=== PATIENT | male | born 1935 | race Two or more races ===

== ENCOUNTER 2019-01-16 21:38 | Inpatient (IN) | payer OTHER ==
[~2019-01-16] VITALS: Ht 160 cm; Wt 80.4 kg
[2019-01-16 22:32] VITALS: BP 149/82
[2019-01-16] MEDS ORDERED: TRAZ-120 PO (22:56)
[2019-01-16] MEDS: traZODone 150 MG TABLET. PO SCH (23:11)
[2019-01-16] MEDS ORDERED: METHYL SALICYLATE/MENTHOL TOPICAL OINTMENT 29GM TUBE. TP PRN (23:30)
[2019-01-16] MEDS ORDERED: MAG HYDROX/AL HYDROX/SIMETH 30 ML ORAL.SUSP PO PRN (23:30)
[2019-01-16] MEDS ORDERED: NYST15CR2 TP (23:52)
[2019-01-16] MEDS ORDERED: MULT1TAB52 PO (23:52)
[2019-01-16] MEDS ORDERED: BUDE10.22 IH (23:52)
[2019-01-16] MEDS ORDERED: SERT50TA PO (23:52)
[2019-01-16] MEDS ORDERED: TIOT18CA IH (23:52)
[2019-01-16] MEDS ORDERED: RIVA1PAT5 TD (23:52)
[2019-01-16] MEDS ORDERED: CALC-614 PO (23:52)
[2019-01-16] MEDS ORDERED: RANI300C PO (23:52)
[2019-01-16] MEDS ORDERED: FERR324T8 PO (23:52)
[2019-01-16] MEDS ORDERED: LUTE1CAP5 PO (23:52)
[2019-01-16] MEDS ORDERED: GUAI200T3 PO (23:52)
[2019-01-16] MEDS ORDERED: TAMS0.4C97 PO (23:52)
[2019-01-16] MEDS ORDERED: GLUC100018 PO (23:52)
[2019-01-16] MEDS ORDERED: ALBU2.5V8 INH (23:52)
[2019-01-16] MEDS ORDERED: METH113. TP (23:52)
[2019-01-16] MEDS ORDERED: LEVO137T3 PO (23:52)
[2019-01-17] MEDS ORDERED: ALBUTEROL SULFATE 2.5 MG/3 ML NEBU. INH PRN
[2019-01-17] MEDS ORDERED: [UNRECOGNIZED DRUG - OTHER] TP PRN
[2019-01-17] MEDS: LEVOTHYROXINE 137 MCG TABLET PO SCH (05:10)
[2019-01-17 05:45] VITALS: BP 147/82
[2019-01-17] MEDS: IPRATRPIUM/ALBUTEROL 0.5/2.5MG 3 ML NEBU. NEB SCH ×4 (06:30→20:50)
[2019-01-17 07:41] LABS: BASO % 1 % (0-3); EOS # 0.1 x10^3/uL (0.0-0.7); EOS % 2 % (0-3); HEMATOCRIT 39.9 % (39.0-53.0); HEMOGLOBIN 13.7 g/dL (13.0-17.5); LYMPH # 0.9 x10^3/uL (1.0-4.8); LYMPH % 17 % (24-48); MEAN CORPUSCULAR HEMOGLOBIN 32 pg (25-35); MEAN CORPUSCULAR HGB CONC 34 g/dL (31-37); MEAN CORPUSCULAR VOLUME 93 fL (79-100); MONO # 0.6 x10^3/uL (0.0-1.1); MONO % 11 % (0-9); NEUT # 3.6 x10^3uL (1.8-7.7); NEUT % 70 % (31-73); PLATELET COUNT 208 x10^3/uL (140-400); RED BLOOD COUNT 4.32 x10^6/uL (4.30-5.70); WHITE BLOOD COUNT 5.2 x10^3/uL (4.0-11.0)
[2019-01-17 07:51] LABS: ALBUMIN 3.8 g/dL (3.4-5.0); ALBUMIN/GLOBULIN RATIO 1.1 (1.0-1.7); CALCIUM 9.1 mg/dL (8.5-10.1); CREATININE 1.4 mg/dL (0.7-1.3); GFR 48.5; MAGNESIUM 2.1 mg/dL (1.8-2.4); POTASSIUM 3.7 mmol/L (3.5-5.1); TOTAL BILIRUBIN 0.6 mg/dL (0.2-1.0); TOTAL PROTEIN 7.4 g/dL (6.4-8.2)
[2019-01-17] MEDS: MULTIVITAMIN with MINERAL TABLET. PO SCH (08:54)
[2019-01-17] MEDS: FERROUS SULFATE 325 MG TABLET. PO SCH (08:54)
[2019-01-17] MEDS: MULTIVITAMIN I-VITE TABLET. PO SCH ×3 (08:55→17:47)
[2019-01-17] MEDS: GLUCOSAMINE 500 MG CAPSULE PO SCH (08:56)
[2019-01-17] MEDS: TAMSULOSIN 0.4 MG CAP.ER.24H. PO SCH (08:56)
[2019-01-17] MEDS: SERTRALINE 50 MG TABLET. PO SCH (08:56)
[2019-01-17] MEDS: FAMOTIDINE 20 MG TABLET PO SCH ×2 (08:56→19:52)
[2019-01-17] MEDS: CALCIUM CARBONATE 500 MG TABLET PO SCH (08:56)
[2019-01-17] MEDS: NYSTATIN/TRIAMCIN TOPICAL CREAM 15GM TUBE. TP SCH ×2 (08:58→19:55)
[2019-01-17] MEDS: RIVASTIGMINE 13.3MG PATCH. TD SCH (08:58)
[2019-01-17] MEDS ORDERED: NON FORMULARY ITEM (Budesonide/Formoterol Fumarate (Symbicort 80-4.5 Mcg Inhaler) 2 PUFF) IH SCH (09:00)
[2019-01-17] MEDS ORDERED: NON FORMULARY ITEM (Tiotropium Bromide (Spiriva) 2 PUFF) IH SCH (09:00)
[2019-01-17] MEDS: BUDESONIDE 0.5 MG/2 ML NEBU NEB SCH ×2 (11:50→20:50)
--- NOTE | 2019-01-17 13:07 | EKG ---
[address] [address] Test Date: 2019-01-17 Test Time: 10:51:04 Pat Name: JAZZY SOLIS Department: Room: [facility] 1 Gender: M Yard Attendant: : [id number] Requested By: ARELY ROSALES Order Number: [id number] Reading MD: Hiro Ashley Measurements Intervals [place] Rate: 95 P: 45 VA: 146 QRS: -81 QRSD: 88 T: 27 QT: 354 QTc: 448 Interpretive Statements SINUS RHYTHM ABNORMAL LEFT AXIS DEVIATION LEFT ANTERIOR FASCICULAR BLOCK ABNORMAL ECG RI6.02 No previous ECG available for comparison Electronically Signed On 02-10-2019 11:46:51 CDT by Hiro Ashley
[2019-01-17 13:43] LABS: THYROID STIM HORMONE (TSH) 13.743 uIU/mL (0.358-3.740)
[2019-01-17 16:40] VITALS: BP 134/77
[2019-01-17 18:06] LABS: THYROXINE 7.3 ug/dL (4.5-12.0)
[2019-01-17] MEDS: traZODone 150 MG TABLET. PO SCH (19:56)
[2019-01-17] MEDS ORDERED: traZODone 150 MG TABLET. PO SCH (21:00)
[2019-01-17] MEDS ORDERED: TRAZODONE HCL 150 MG PO SCH (21:00)
[2019-01-17] MEDS ORDERED: DIVALPROEX 125 MG CAP.SPRINK PO ONE (21:00)
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
[2019-01-18] MEDS: LEVOTHYROXINE 137 MCG TABLET PO SCH (05:27)
[2019-01-18] MEDS: IPRATRPIUM/ALBUTEROL 0.5/2.5MG 3 ML NEBU. NEB SCH ×4 (05:29→21:03)
[2019-01-18] MEDS: BUDESONIDE 0.5 MG/2 ML NEBU NEB SCH ×2 (05:29→21:03)
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
[2019-01-18 06:22] VITALS: BP 170/96
[2019-01-18] MEDS: GLUCOSAMINE 500 MG CAPSULE PO SCH (08:41)
[2019-01-18] MEDS: FERROUS SULFATE 325 MG TABLET. PO SCH (08:41)
[2019-01-18] MEDS: TAMSULOSIN 0.4 MG CAP.ER.24H. PO SCH (08:41)
[2019-01-18] MEDS: CALCIUM CARBONATE 500 MG TABLET PO SCH (08:41)
[2019-01-18] MEDS: RIVASTIGMINE 13.3MG PATCH. TD SCH (08:43)
[2019-01-18] MEDS: FAMOTIDINE 20 MG TABLET PO SCH ×2 (08:43→20:06)
[2019-01-18] MEDS: MULTIVITAMIN with MINERAL TABLET. PO SCH (08:43)
[2019-01-18] MEDS: SERTRALINE 50 MG TABLET. PO SCH (08:43)
[2019-01-18] MEDS: NYSTATIN/TRIAMCIN TOPICAL CREAM 15GM TUBE. TP SCH ×2 (08:44→20:05)
[2019-01-18] MEDS ORDERED: DIVALPROEX 125 MG CAP.SPRINK PO SCH ×2 (09:00→21:00)
[2019-01-18 10:07] LABS: HEMOGLOBIN A1C 5.8 % (4.8-5.6)
[2019-01-18 16:39] VITALS: BP 110/74
[2019-01-18] MEDS: MULTIVITAMIN I-VITE TABLET. PO SCH (17:21)
[2019-01-18] MEDS: traZODone 150 MG TABLET. PO SCH (20:05)
--- NOTE | 2019-01-19 04:16 | PN ---
DATE: 01/18/2019 SUBJECTIVE: The patient was seen today, met with the staff, chart reviewed. The patient apparently responded to the medication and much calmer, is still an elopement risk. The patient did get agitated easily. OBSERVATION: Vital signs: Temperature 97.2, blood pressure 170/96, pulse 108, respirations 20, O2 sat 93%. Her slept about 6 hours last night. The patient's appetite is good. The patient is not having any physical problems. MEDICATIONS: The patient's current medications include Depakote 125 mg in the morning and 250 at night, olanzapine 10 mg at night, Zoloft 50 mg daily, Exelon patch daily, trazodone 150 mg at night, and olanzapine 2.5 mg q.4 hours p.r.n. The patient's medications are changed today. The Depakote was increased and also the patient was started on the olanzapine 5 mg at night scheduled dose. ASSESSMENT: 1. Dementia, most likely Alzheimer's with confusion and behavior problems. 2. Generalized anxiety disorder. 3. Impulse control disorder, unspecified. PLAN: To continue with the treatment. LENGTH OF STAY: 5-7 days. ARELY ROSALES MD DR: GISELLE/ruiz JOB#: [id number] / [id number]
[2019-01-19] MEDS: IPRATRPIUM/ALBUTEROL 0.5/2.5MG 3 ML NEBU. NEB SCH ×4 (05:42→20:55)
[2019-01-19] MEDS: BUDESONIDE 0.5 MG/2 ML NEBU NEB SCH ×2 (05:42→20:55)
[2019-01-19] MEDS: LEVOTHYROXINE 137 MCG TABLET PO SCH (06:01)
[2019-01-19 06:07] VITALS: BP 119/85
[2019-01-19] MEDS: CALCIUM CARBONATE 500 MG TABLET PO SCH (07:56)
[2019-01-19] MEDS: GLUCOSAMINE 500 MG CAPSULE PO SCH (07:56)
[2019-01-19] MEDS: MULTIVITAMIN with MINERAL TABLET. PO SCH (07:56)
[2019-01-19] MEDS: SERTRALINE 50 MG TABLET. PO SCH (07:57)
[2019-01-19] MEDS: RIVASTIGMINE 13.3MG PATCH. TD SCH (07:57)
[2019-01-19] MEDS: FAMOTIDINE 20 MG TABLET PO SCH ×2 (07:57→19:48)
[2019-01-19] MEDS: MULTIVITAMIN I-VITE TABLET. PO SCH ×2 (07:57→17:46)
[2019-01-19] MEDS: TAMSULOSIN 0.4 MG CAP.ER.24H. PO SCH (07:57)
[2019-01-19] MEDS: FERROUS SULFATE 325 MG TABLET. PO SCH (07:57)
[2019-01-19] MEDS: NYSTATIN/TRIAMCIN TOPICAL CREAM 15GM TUBE. TP SCH ×2 (08:01→20:01)
[2019-01-19] MEDS ORDERED: DIVALPROEX 125 MG CAP.SPRINK PO SCH (09:00)
[2019-01-19 16:03] VITALS: BP 159/80
[2019-01-19] MEDS: traZODone 150 MG TABLET. PO SCH (19:47)
[2019-01-19] MEDS: DIVALPROEX 125 MG CAP.SPRINK PO SCH (19:48)
--- NOTE | 2019-01-20 03:44 | PN ---
DATE: 01/19/2019 SUBJECTIVE: The patient was seen today, met with the staff, chart reviewed. The patient's behavior continues to fluctuate. The patient is also threatening towards the staff. He is an elopement risk. The patient is not able to follow directions. The patient is also irritable and sutton. The patient has no awareness of his surroundings and significant confusion and also significant change in his level of psychomotor activity. The patient is uncontrollable at times. OBSERVATION: VITAL SIGNS: Temperature 97.2, blood pressure 119/85, pulse 94, respirations 20, O2 sat 93%, slept about 6 hours last night. CURRENT MEDICATIONS: The patient's current medications include Depakote 125 mg in the morning and 250 at night, olanzapine 10 mg at night, Zoloft 50 mg daily, Exelon patch daily, trazodone 150 mg at night and also olanzapine 2.5 mg q. 4 hours p.r.n. The patient's Depakote was increased today to 250 mg b.i.d. p.o. The patient is not having any major side effects, no major medical issues. The patient is able to walk fairly steady. ASSESSMENT: 1. Dementia, most likely Alzheimer's with confusion, behavioral problems. 2. Generalized anxiety disorder. 3. Impulse control disorder, unspecified. PLAN: To continue with the treatment. LENGTH OF STAY: 5-7 days. ARELY ROSALES MD DR: GISELLE/ruiz JOB#: [id number] / [id number]
[2019-01-20] MEDS: MAGNESIUM HYDROXIDE 2,400 MG/30 ML ORAL.SUSP. PO PRN (04:56)
[2019-01-20] MEDS: LEVOTHYROXINE 137 MCG TABLET PO SCH (05:34)
[2019-01-20 06:18] VITALS: BP 140/84
[2019-01-20 07:17] LABS: ALBUMIN 3.6 g/dL (3.4-5.0); CALCIUM 8.9 mg/dL (8.5-10.1); CREATININE 1.6 mg/dL (0.7-1.3); GFR 41.6; POTASSIUM 4.2 mmol/L (3.5-5.1); TOTAL PROTEIN 7.2 g/dL (6.4-8.2)
[2019-01-20 07:31] LABS: BASO % 1 % (0-3); EOS # 0.1 x10^3/uL (0.0-0.7); EOS % 3 % (0-3); HEMATOCRIT 40.1 % (39.0-53.0); HEMOGLOBIN 13.5 g/dL (13.0-17.5); LYMPH # 0.9 x10^3/uL (1.0-4.8); LYMPH % 16 % (24-48); MEAN CORPUSCULAR HEMOGLOBIN 32 pg (25-35); MEAN CORPUSCULAR HGB CONC 34 g/dL (31-37); MEAN CORPUSCULAR VOLUME 94 fL (79-100); MONO # 0.6 x10^3/uL (0.0-1.1); MONO % 12 % (0-9); NEUT # 3.8 x10^3uL (1.8-7.7); NEUT % 69 % (31-73); PLATELET COUNT 207 x10^3/uL (140-400); RED BLOOD COUNT 4.28 x10^6/uL (4.30-5.70); RED CELL DISTRIBUTION WIDTH 14.3 % (11.5-14.5); WHITE BLOOD COUNT 5.5 x10^3/uL (4.0-11.0)
[2019-01-20] MEDS: DIVALPROEX 125 MG CAP.SPRINK PO SCH ×2 (08:10→19:56)
[2019-01-20] MEDS: TAMSULOSIN 0.4 MG CAP.ER.24H. PO SCH (08:10)
[2019-01-20] MEDS: MULTIVITAMIN with MINERAL TABLET. PO SCH (08:10)
[2019-01-20] MEDS: MULTIVITAMIN I-VITE TABLET. PO SCH ×2 (08:10→16:59)
[2019-01-20] MEDS: FERROUS SULFATE 325 MG TABLET. PO SCH (08:10)
[2019-01-20] MEDS: CALCIUM CARBONATE 500 MG TABLET PO SCH (08:10)
[2019-01-20] MEDS: GLUCOSAMINE 500 MG CAPSULE PO SCH (08:10)
[2019-01-20] MEDS: SERTRALINE 50 MG TABLET. PO SCH (08:11)
[2019-01-20] MEDS: NYSTATIN/TRIAMCIN TOPICAL CREAM 15GM TUBE. TP SCH ×2 (08:11→19:59)
[2019-01-20] MEDS: RIVASTIGMINE 13.3MG PATCH. TD SCH (08:11)
[2019-01-20] MEDS: FAMOTIDINE 20 MG TABLET PO SCH ×2 (08:11→19:56)
[2019-01-20] MEDS: IPRATRPIUM/ALBUTEROL 0.5/2.5MG 3 ML NEBU. NEB SCH ×4 (10:23→20:25)
[2019-01-20] MEDS: BUDESONIDE 0.5 MG/2 ML NEBU NEB SCH ×2 (10:23→20:25)
[2019-01-20 15:53] VITALS: BP 109/71
[2019-01-20 18:12] LABS: BACTERIA,URINE 0 /HPF (0-FEW); BILIRUBIN,URINE NEG (NEG); CLARITY,URINE HAZY; COLOR,URINE AMBER; GLUCOSE,URINE NEG (NEG); NITRITE,URINE NEG (NEG); RBC,URINE 0 /HPF (0-2); SQUAMOUS EPITHELIAL CELL,UR OCC /LPF; UROBILINOGEN,URINE 0.2 mg/dL (0.2 mg/dL)
[2019-01-20] MEDS: traZODone 150 MG TABLET. PO SCH (19:55)
--- NOTE | 2019-01-21 00:39 | PN ---
DATE: 01/20/2019 SUBJECTIVE: The patient was seen today, met with the staff, chart reviewed. The patient's behavior overall is improved, but still is pacing, intrusive, elopement risk and also periods of agitation, still paranoid, confused, and also showing increased mood swings and irritability. OBSERVATION: VITAL SIGNS: Temperature 97.2, blood pressure 119/85, pulse 94, respirations 20, O2 sat 93%. GENERAL: Slept about 6 hours last night. CURRENT MEDICATIONS: The patient's current medications include Depakote 125 mg in the morning and 250 mg at night, olanzapine 10 mg at night, Zoloft 50 mg daily, Exelon patch daily, trazodone 150 mg at night, and also olanzapine 2.5 mg q. 4 hours p.r.n. The patient's Depakote was increased to 250 mg b.i.d. p.o. yesterday because of his increased agitation, so far no major side effects. ASSESSMENT: 1. Dementia, most likely Alzheimer's with confusion and behavior problems. 2. Generalized anxiety disorder. 3. Impulse control disorder, unspecified. PLAN: To continue with the treatment. LENGTH OF STAY: 5 days. ARELY ROSALES MD DR: GISELLE/ruiz JOB#: [id number] / [id number]
[2019-01-21] MEDS: IPRATRPIUM/ALBUTEROL 0.5/2.5MG 3 ML NEBU. NEB SCH ×4 (05:22→20:33)
[2019-01-21] MEDS: BUDESONIDE 0.5 MG/2 ML NEBU NEB SCH ×2 (05:23→20:33)
[2019-01-21 06:00] VITALS: BP 134/91
[2019-01-21] MEDS: LEVOTHYROXINE 137 MCG TABLET PO SCH (06:05)
[2019-01-21] MEDS: TAMSULOSIN 0.4 MG CAP.ER.24H. PO SCH (08:37)
[2019-01-21] MEDS: CALCIUM CARBONATE 500 MG TABLET PO SCH (08:37)
[2019-01-21] MEDS: FERROUS SULFATE 325 MG TABLET. PO SCH (08:37)
[2019-01-21] MEDS: DIVALPROEX 125 MG CAP.SPRINK PO SCH ×2 (08:37→19:32)
[2019-01-21] MEDS: MULTIVITAMIN I-VITE TABLET. PO SCH ×2 (08:37→16:17)
[2019-01-21] MEDS: FAMOTIDINE 20 MG TABLET PO SCH ×2 (08:38→19:33)
[2019-01-21] MEDS: MULTIVITAMIN with MINERAL TABLET. PO SCH (08:38)
[2019-01-21] MEDS: GLUCOSAMINE 500 MG CAPSULE PO SCH (08:38)
[2019-01-21] MEDS: SERTRALINE 50 MG TABLET. PO SCH (08:39)
[2019-01-21] MEDS: RIVASTIGMINE 13.3MG PATCH. TD SCH (08:39)
[2019-01-21] MEDS: NYSTATIN/TRIAMCIN TOPICAL CREAM 15GM TUBE. TP SCH ×2 (11:50→21:07)
[2019-01-21] MEDS ORDERED: CHOLECALCIFEROL (VITAMIN D3) 50,000 UNIT CAPSULE PO SCH (15:15)
[2019-01-21 15:49] VITALS: BP 126/84
[2019-01-21] MEDS: traZODone 150 MG TABLET. PO SCH (19:32)
[2019-01-22] MEDS: ACETAMINOPHEN 325 MG TABLET PO PRN ×2 (04:06→17:00)
[2019-01-22] MEDS: BUDESONIDE 0.5 MG/2 ML NEBU NEB SCH ×2 (05:17→20:00)
[2019-01-22] MEDS: IPRATRPIUM/ALBUTEROL 0.5/2.5MG 3 ML NEBU. NEB SCH ×4 (05:17→20:00)
[2019-01-22] MEDS: LEVOTHYROXINE 137 MCG TABLET PO SCH (05:26)
[2019-01-22 06:16] VITALS: BP 105/65
[2019-01-22 07:31] LABS: BASO # 0.1 x10^3/uL (0.0-0.2); BASO % 1 % (0-3); EOS % 0 % (0-3); HEMATOCRIT 39.2 % (39.0-53.0); HEMOGLOBIN 13.3 g/dL (13.0-17.5); LYMPH # 0.5 x10^3/uL (1.0-4.8); LYMPH % 4 % (24-48); MEAN CORPUSCULAR HEMOGLOBIN 32 pg (25-35); MEAN CORPUSCULAR HGB CONC 34 g/dL (31-37); MEAN CORPUSCULAR VOLUME 93 fL (79-100); MONO # 1.2 x10^3/uL (0.0-1.1); MONO % 9 % (0-9); NEUT # 10.9 x10^3uL (1.8-7.7); NEUT % 86 % (31-73); PLATELET COUNT 196 x10^3/uL (140-400); RED BLOOD COUNT 4.22 x10^6/uL (4.30-5.70); RED CELL DISTRIBUTION WIDTH 14.4 % (11.5-14.5); WHITE BLOOD COUNT 12.6 x10^3/uL (4.0-11.0)
[2019-01-22 07:44] LABS: ALBUMIN 3.3 g/dL (3.4-5.0); ALBUMIN/GLOBULIN RATIO 0.9 (1.0-1.7); CALCIUM 8.8 mg/dL (8.5-10.1); CREATININE 1.7 mg/dL (0.7-1.3); GFR 38.8; POTASSIUM 4.1 mmol/L (3.5-5.1); TOTAL BILIRUBIN 1.4 mg/dL (0.2-1.0); TOTAL PROTEIN 7.1 g/dL (6.4-8.2)
--- NOTE | 2019-01-22 08:06 | RAD ---
EXAM: CHEST 1 VIEW History: Tachycardia COMPARISON: None available. TECHNIQUE: Single portable radiograph of the chest FINDINGS: Low lung volumes and technique accentuates heart size and pulmonary vascularity. Mild elevation of the right hemidiaphragm. Linear airspace opacity identified in the right lung base likely atelectasis or scarring changes. Moderate degenerative changes thoracic spine. Impression: 1. Linear airspace opacities likely atelectasis or scarring in the right lung base. Electronically signed by: Augustin Limon MD (01/22/2019 8:03 AM) [facility]
[2019-01-22 08:14] VITALS: BP 102/71
[2019-01-22] MEDS: CALCIUM CARBONATE 500 MG TABLET PO SCH (08:47)
[2019-01-22] MEDS: MULTIVITAMIN I-VITE TABLET. PO SCH ×2 (08:47→16:49)
[2019-01-22] MEDS: FERROUS SULFATE 325 MG TABLET. PO SCH (08:47)
[2019-01-22] MEDS: DIVALPROEX 125 MG CAP.SPRINK PO SCH ×2 (08:48→22:39)
[2019-01-22] MEDS: TAMSULOSIN 0.4 MG CAP.ER.24H. PO SCH (08:48)
[2019-01-22] MEDS: MULTIVITAMIN with MINERAL TABLET. PO SCH (08:49)
[2019-01-22] MEDS: FAMOTIDINE 20 MG TABLET PO SCH ×2 (08:49→21:00)
[2019-01-22] MEDS: RIVASTIGMINE 13.3MG PATCH. TD SCH (08:49)
[2019-01-22] MEDS: SERTRALINE 50 MG TABLET. PO SCH (08:49)
[2019-01-22] MEDS: GLUCOSAMINE 500 MG CAPSULE PO SCH (08:49)
[2019-01-22] MEDS: NYSTATIN/TRIAMCIN TOPICAL CREAM 15GM TUBE. TP SCH ×2 (08:51→21:00)
[2019-01-22 08:53] LABS: % ATYL 2 % (0-0); % BANDS 8 % (0-9); % LYMPHS 6 % (24-48); % MONOS 1 % (0-10); % SEGS 83 % (35-66); PLT ESTIMATE ADEQUATE (ADEQUATE)
[2019-01-22] MEDS ORDERED: IV NORMAL SALINE 500ML 500 ML IV ONE (09:30)
[2019-01-22] MEDS: IV NORMAL SALINE 1,000ML 1,000 ML IV SCH ×2 (09:53→22:37)
[2019-01-22 11:24] VITALS: BP 117/77
[2019-01-22 16:15] VITALS: BP 118/72
[2019-01-22] MEDS ORDERED: LACTOBACILLUS RHAMNOSUS GG 1 CAPSULE. PO SCH (21:00)
[2019-01-22] MEDS: traZODone 150 MG TABLET. PO SCH (22:38)
[2019-01-23] MEDS: MAGNESIUM HYDROXIDE 2,400 MG/30 ML ORAL.SUSP. PO PRN (03:54)
[2019-01-23] MEDS: IPRATRPIUM/ALBUTEROL 0.5/2.5MG 3 ML NEBU. NEB SCH (05:16)
[2019-01-23] MEDS: LEVOTHYROXINE 137 MCG TABLET PO SCH (06:09)
[2019-01-23 06:13] VITALS: BP 118/74
[2019-01-23] MEDS ORDERED: ACET325T9 PO (06:29)
[2019-01-23] MEDS ORDERED: BUDE0.5A3 NEB (06:29)
[2019-01-23] MEDS ORDERED: CALC-30 PO (06:30)
[2019-01-23] MEDS ORDERED: CHOL500016 PO (06:30)
[2019-01-23] MEDS ORDERED: IPRA3AMP29 NEB (06:31)
[2019-01-23] MEDS ORDERED: DIVA125C2 PO (06:31)
[2019-01-23] MEDS ORDERED: LACT1CAP21 PO (06:32)
[2019-01-23] MEDS ORDERED: MAGN2400 PO (06:32)
[2019-01-23] MEDS ORDERED: MAG355OR17 PO (06:32)
[2019-01-23] MEDS ORDERED: MULT1TAB52 PO (06:33)
[2019-01-23] MEDS ORDERED: OLAN5TAB5 PO (06:33)
[2019-01-23] MEDS ORDERED: OLAN10TA5 PO (06:34)
--- NOTE | 2019-01-24 08:10 | DS ---
DATE OF DISCHARGE: 01/23/2019 DISCHARGE SUMMARY/PSYCHIATRIC PROGRESS NOTE. Admitted on 01/16/[address] Polk, discharged 01/23/2019. REASON FOR ADMISSION: Please refer to the admission history by Dr. Polk for details. Briefly, the patient is an 83-year-old male admitted from the [facility] where he presented on account of unmanageable, dangerous, out of control behaviors while living at home with his . He has progressively worsening dementia, delusion, depression, agitation, and was having home health services while at home. Behaviors were escalating to a point where he was disruptive, aggressive at home, having significant mood swings, difficult to redirect. He became combative and physical towards others around him. His is his primary caregiver. The patient had failed outpatient psychiatric interventions, was having significant insomnia. SIGNIFICANT FINDINGS AND CLINICAL COURSE: Following admission, the patient was seen by Dr. Polk from a psychiatric standpoint, medical followup with Dr. Ceja. He was confused, agitated, difficult to redirect. Adjustments were made in the psychotropics. On the morning of 01/23/2019, he was having respiratory issues. Chest x-ray was negative, but he was felt to be medically compromised and transferred to [address] [place] [address] Ceja and discharged from [facility] on 01/23/2019. FINAL DIAGNOSES: Major neurocognitive disorder, Alzheimer, vascular with delusion, depression, behavioral disturbance; anxiety disorder, unspecified; impulse control disorder, unspecified; acute respiratory distress. Rest diagnoses unchanged from admission. DISCHARGE MEDICATIONS: Please refer to the MRAD. DISCHARGE INSTRUCTIONS: Psychiatric medical followup on . MAN Leyla SHORT MD DR: RICHARD/ruiz JOB#: [id number] / [id number]
--- NOTE | 2019-01-24 19:51 | PDOC ---
Exam Note: Tony Note: Late entry for date of service January.Admission Date: January 16, 2019 at 22:03 * A recertification for continued Inpatient Psychiatric Admission must be done on Day 12, Day 18 and Day 30. Please also refer to the separate dictated note~for this date of service dictated separately.~Patient seen individually. Discussed the patient with Nursing staff reviewed the chart.~Reviewed interim history and current functioning. Reviewed vital signs,~Labs/ Radiology~and current medications noted below. Continue current treatment with the changes noted in the dictated addendum note Assessment: Vital Signs: VS - Last 72 Hours, by Label Date Time Temp Pulse Resp B/P (MAP) Pulse Ox O2 Delivery O2 Flow Rate FiO2 01/23/19 06:13 97.9 101 20 118/74 (89) 93 Nasal Cannula 2.5 01/23/19 05:16 93 Room Air 01/22/19 20:35 95 Room Air 01/22/19 20:30 95 Room Air 01/22/19 16:15 97.7 100 16 118/72 (87) 90 01/22/19 15:29 97 Room Air 01/22/19 11:24 103 18 117/77 (90) 91 Room Air 01/22/19 09:38 95 Room Air 01/22/19 08:14 98.6 107 18 102/71 (81) 92 Room Air 01/22/19 06:16 98.3 118 20 105/65 (78) 88 Room Air 01/22/19 05:21 88 Room Air 01/21/19 20:39 93 Room Air 01/21/19 20:37 93 Room Air Vital Signs Date Time Temp Pulse Resp B/P (MAP) Pulse Ox O2 Delivery O2 Flow Rate FiO2 01/23/19 06:13 97.9 101 20 118/74 (89) 93 Nasal Cannula 2.5 Current Medications: Meds: Current Medications Olanzapine (ZyPREXA ZYDIS) 2.5 mg PRN Q4HRS PRN PO ANXIETY / AGITATION Last administered on 01/22/19at 16:49; Start 01/16/19 at 23:00; Stop 01/23/19 at 06:43; Status DC Non-Formulary Medication (Trazodone Hcl ) 150 mg QHS PO ; Start 01/17/19 at 21:00; Stop 01/17/19 at 21:00; Status DC Trazodone HCl (Desyrel) 150 mg QHS PO ; Start 01/17/19 at 21:00; Stop 01/17/19 at 21:00; Status DC Trazodone HCl (Desyrel) 150 mg QHS PO Last administered on 01/22/19at 22:38; Start 01/16/19 at 23:30; Stop 01/23/19 at 06:43; Status DC Acetaminophen (Tylenol) 650 mg PRN Q6HRS PRN PO PAIN / TEMP Last administered on 01/22/19at 17:00; Start 01/16/19 at 23:30; Stop 01/23/19 at 06:43; Status DC Multi-Ingredient Ointment (Analgesic [place]) 1 amy PRN QID PRN TP MUSCLE PAIN; Start 01/16/19 at 23:30; Stop 01/23/19 at 06:43; Status DC Al Hydroxide/Mg Hydroxide (Mylanta Plus Xs) 15 ml PRN AFTMEALHC PRN PO DYSPEPSIA; Start 01/16/19 at 23:30; Stop 01/23/19 at 06:43; Status DC Magnesium Hydroxide (Milk Of Magnesia) 2,400 mg PRN QHS PRN PO CONSTIPATION L ast administered on 01/23/19at 03:54; Start 01/16/19 at 23:30; Stop 01/23/19 at 06:43; Status DC Albuterol Sulfate (Ventolin) 2.5 mg PRN Q6HRS PRN INH SHORTNESS OF BREATH; Start 01/17/19 at 00:00; Stop 01/23/19 at 06:43; Status DC Guaifenesin (Guaifenesin) 200 mg DAILY PO Last administered on 01/22/19at 08:51; Start 01/17/19 at 09:00; Stop 01/23/19 at 06:43; Status DC Levothyroxine Sodium (Synthroid) 137 mcg DAILY06 PO Last administered on 01/23/19at 06:09; Start 01/17/19 at 06:00; Stop 01/23/19 at 06:43; Status DC Rivastigmine (Exelon 13.3mg) 1 patch DAILY TD Last administered on 01/22/19at 08:49; Start 01/17/19 at 09:00; Stop 01/23/19 at 06:43; Status DC Sertraline HCl (Zoloft) 50 mg DAILY PO Last administered on 01/22/19 08:49; Start 01/17/19 at 09:00; Stop 01/23/19 at 06:43; Status DC Tamsulosin HCl (Flomax) 0.4 mg DAILY PO Last administered on 01/22/19 08:48; Start 01/17/19 at 09:00; Stop 01/23/19 at 06:43; Status DC Non-Formulary Medication (Budesonide/ Formoterol Fumarate (Symbicort 80-4.5 Mcg Inhaler)) 2 puff BID IH ; Start 01/17/19 at 09:00; Status UNV Calcium Carbonate/ Glycine (Oscal) 500 mg DAILYWBKFT PO Last administered on 01/22/19at 08:47; Start 01/17/19 at 08:00; Stop 01/23/19 at 06:43; Status DC Ferrous Sulfate (Feosol) 325 mg DAILYWBKFT PO Last administered on 01/22/19at 08:47; Start 01/17/19 at 08:00; Stop 01/23/19 at 06:43; Status DC Glucosamine Sulfate (Glucosamine) 1,000 mg DAILY PO Last administered on 01/22/19 08:49; Start 01/17/19 at 09:00; Stop 01/23/19 at 06:43; Status DC Multivitamins/ Minerals (I-[place]) 1 tab BIDWMEALS PO Last administered on 01/22/19 16:49; Start 01/17/19 at 08:00; Stop 01/23/19 at 06:43; Status DC Non-Formulary Medication (Methyl Salicylate/Menth/ Camph (Pain-Relief Cream)) 1 amy PRN BID PRN TP foot pain; Start 01/17/19 at 00:00; Status UNV Multivitamins/ Calcium (Thera-M Plus) 1 tab DAILY PO Last administered on at 08:49; Start 01/17/19 at 09:00; Stop 01/23/19 at 06:43; Status DC Nystatin/ Triamcinolone Acetonide (Mycolog Ii) 1 amy BID TP Last administered on 01/22/19at 21:00; Start 01/17/19 at 09:00; Stop 01/23/19 at 06:43; Status DC Famotidine (Pepcid) 20 mg BID PO Last administered on 01/22/19at 21:00; Start 01/17/19 at 09:00; Stop 01/23/19 at 06:43; Status DC Non-Formulary Medication (Tiotropium [place] (Spiriva)) 2 puff DAILY IH ; Start 01/17/19 at 09:00; Status UNV Albuterol/ Ipratropium (Duoneb) 3 ml RTQID NEB Last administered on 01/23/19at 05:16; Start 01/17/19 at 08:00; Stop 01/23/19 at 06:43; Status DC Budesonide (Pulmicort) 0.5 mg RTBID NEB Last administered on 01/22/19at 20:00; Start 01/17/19 at 08:00; Stop 01/23/19 at 06:43; Status DC Olanzapine (ZyPREXA ZYDIS) 5 mg HS PO Last administered on 01/17/19at 19:56; Start 01/17/19 at 21:00; Stop 01/18/19 at 16:18; Status DC Divalproex Sodium (Depakote Sprinkles) 125 mg 1X ONCE PO Last administered on 01/17/19at 21:16; Start 01/17/19 at 21:00; Stop 01/17/19 at 21:01; Status DC Divalproex Sodium (Depakote Sprinkles) 125 mg BID PO Last administered on 01/18/19at 08:48; Start 01/18/19 at 09:00; Stop 01/18/19 at 16:18; Status DC Divalproex Sodium (Depakote Sprinkles) 125 mg DAILY PO Last administered on 01/19/19at 07:59; Start 01/19/19 at 09:00; Stop 01/19/19 at 17:26; Status DC Olanzapine (ZyPREXA ZYDIS) 10 mg HS PO Last administered on 01/22/19at 22:38; Start 01/18/19 at 21:00; Stop 01/23/19 at 06:43; Status DC Divalproex Sodium (Depakote Sprinkles) 250 mg QHS PO Last administered on 01/18/19at 20:06; Start 01/18/19 at 21:00; Stop 01/19/19 at 17:26; Status DC Divalproex Sodium (Depakote Sprinkles) 250 mg BID PO Last administered on 01/22/19at 22:39; Start 01/19/19 at 21:00; Stop 01/23/19 at 06:43; Status DC Vitamin D (Vitamin D3) 50,000 unit WEEKLY PO Last administered on 01/21/19at 16:17; Start 01/21/19 at 15:15; Stop 01/23/19 at 06:43; Status DC Sodium Chloride 500 ml @ 0 mls/hr 1X ONCE IV Last administered on 01/22/19at 09:54; Start 01/22/19 at 09:30; Stop 01/22/19 at 09:31; Status DC Sodium Chloride 1,000 ml @ 100 mls/hr Q10H IV Last administered on 01/22/19at 22:37; Start 01/22/19 at 11:00; Stop 01/23/19 at 06:43; Status DC Ceftriaxone Sodium 1 gm/ Sodium Chloride 50 ml @ 100 mls/hr Q24H IV Last administered on 01/22/19at 09:53; Start 01/22/19 at 10:00; Stop 01/23/19 at 06:43; Status DC Lactobacillus Rhamnosus (Culturelle) 1 cap BID PO Last administered on 01/22/19at 22:38; Start 01/22/19 at 21:00; Stop 01/23/19 at 06:43; Status DC Active Scripts Active Reported Zyprexa Zydis (Olanzapine) 10 Mg Tab.rapdis 10 Mg PO QHS Zyprexa Zydis (Olanzapine) 5 Mg Tab.rapdis 2.5 Mg PO PRN Q4HRS PRN Multivitamins (Multivitamin) 1 Each Tablet 1 Tab PO DAILY Milk Of Magnesia (Magnesium Hydroxide) 2,400 Mg/10 Ml Oral.susp 2,400 Mg PO PRN QHS PRN Advanced Antacid Liquid (Mag Hydrox/Al Hydrox/Simeth) 355 Ml Oral.susp 15 Ml PO PRN AFTMEALHC PRN Culturelle (Lactobacillus Rhamnosus Gg) 1 Each Capsule 1 Each PO BID Duoneb 0.5-3(2.5) Mg/3 Ml (Albuterol/Ipratropium) 3 Ml Ampul.neb 3 Ml NEB QID Depakote Sprinkle (Divalproex Sodium) 125 Mg Cap.sprink 250 Mg PO BID Vitamin D3 (Cholecalciferol (Vitamin D3)) 5,000 Unit Tablet 50,000 Unit PO WEEKLY Calcium 500 + Vit D 400 Tablet (Calcium Carbonate/Vitamin D3) 1 Each Tablet 1 Each PO DAILY Pulmicort (Budesonide) 0.5 Mg/2 Ml Ampul.neb 0.5 Mg NEB RTBID Tylenol (Acetaminophen) 325 Mg Tablet 650 Mg PO PRN Q6HRS PRN Multivitamins (Multivitamin) 1 Each Tablet 1 Each PO DAILY Nystatin-Triamcinolone Cream (Nystatin/Triamcin) 15 Gm Cream..g. 1 Amy TP BID Guaifenesin 200 Mg Tablet 200 Mg PO DAILY Glucosamine (Glucosamine Sulfate 2KCL) 1,000 Mg Tablet 1,000 Mg PO DAILY Flomax (Tamsulosin Hcl) 0.4 Mg Cap.er.24h 0.4 Mg PO DAILY Zoloft (Sertraline Hcl) 50 Mg Tablet 50 Mg PO DAILY EXELON 13.3mg/24hr (Rivastigmine) 1 Each Patch.td24 1 Patch TD DAILY Pain-Relief Cream (Methyl Salicylate/Menth/Camph) 113.3 Gm Cream..g. 1 Amy TP PRN BID PRN Levothyroxine Sodium 137 Mcg Tablet 137 Mcg PO DAILYAC Ferrous Gluconate 324 Mg Tablet 324 Mg PO DAILY Proair Hfa Inhaler (Albuterol Sulfate) 8.5 Gm Hfa.aer.ad 1 Puff INH PRN Q6HRS PRN Trazodone Hcl 50 Mg Tablet 150 Mg PO QHS I have reviewed the current psychotropics carefully including drug interactions. Risk benefit ratio favors no change other than as noted in my dictated progress note. Diagnosis: Problems: (1) Anxiety disorder (2) Impulse control disorder (3) Dementia, vascular, with depression (4) Dementia, vascular, with delusions (5) Dementia in Alzheimer's disease with depression (6) Dementia in Alzheimer's disease with delusions MYLES SHORT MD January 24, 2019 19:51
== END 2019-01-23 06:42 | DRG 57 ==
LOC: GEROPSY 22:03
PROVIDERS: ADMIT Psychiatry & Neurology Psychiatry; ATTEND Psychiatry & Neurology Psychiatry
DX: G30.9 Alzheimer's disease, unspecified (principal); F02.81 Dementia in other diseases classified elsewhere, unspecified severity, with behavioral disturbance; F01.51 Vascular dementia, unspecified severity, with behavioral disturbance; I25.10 Atherosclerotic heart disease of native coronary artery without angina pectoris; K21.9 Gastro-esophageal reflux disease without esophagitis; H35.30 Unspecified macular degeneration; E03.9 Hypothyroidism, unspecified; N40.0 Benign prostatic hyperplasia without lower urinary tract symptoms; J44.9 Chronic obstructive pulmonary disease, unspecified; G89.29 Other chronic pain; G47.33 Obstructive sleep apnea (adult) (pediatric); K57.90 Diverticulosis of intestine, part unspecified, without perforation or abscess without bleeding; M19.90 Unspecified osteoarthritis, unspecified site; Z88.8 Allergy status to other drugs, medicaments and biological substances; F41.1 Generalized anxiety disorder; F63.9 Impulse disorder, unspecified; D50.9 Iron deficiency anemia, unspecified; F32.9 Major depressive disorder, single episode, unspecified; N18.9 Chronic kidney disease, unspecified; I12.9 Hypertensive chronic kidney disease with stage 1 through stage 4 chronic kidney disease, or unspecified chronic kidney disease; J31.0 Chronic rhinitis; M85.80 Other specified disorders of bone density and structure, unspecified site; R32 Unspecified urinary incontinence; Z96.1 Presence of intraocular lens; N52.9 Male erectile dysfunction, unspecified; G47.00 Insomnia, unspecified; Z86.010 Personal history of colon polyps; Z87.891 Personal history of nicotine dependence; Z98.41 Cataract extraction status, right eye; Z98.42 Cataract extraction status, left eye
CPT/HCPCS: 36415; 71046; 80053; 80061; 81001; 82306; 82550; 83036; 83540; 83550; 83605; 83735; 83880; 84436; 84443; 84480; 84484; 85007; 85025; 86592; 87040; 87086; 93005; 94640; J0696; J7040; J7620; J7626; J7030

== ENCOUNTER 2019-01-23 06:45 | Inpatient (IN) | payer MEDICARE, OTHER ==
[~2019-01-23] VITALS: Ht 157.5 cm; Wt 78.5 kg
[~2019-01-23 06:45] MED LIST: ACET325T9 PO; ALBU2.5V8 INH; BUDE0.5A3 NEB; BUDE10.22 IH; CALC-30 PO; CALC-614 PO; CHOL500016 PO; DIVA125C2 PO; FERR324T8 PO; GLUC100018 PO; GUAI200T3 PO; IPRA3AMP29 NEB; LACT1CAP21 PO; LEVO137T3 PO; LUTE1CAP5 PO; MAG355OR17 PO; MAGN2400 PO; METH113. TP; MULT1TAB52 PO; NYST15CR2 TP; OLAN10TA5 PO; OLAN5TAB5 PO; RANI300C PO; RIVA1PAT5 TD; SERT50TA PO; TAMS0.4C97 PO; TIOT18CA IH; TRAZ-120 PO
[2019-01-23 06:52] VITALS: BP 141/94
[2019-01-23 07:34] LABS: BASO % 0 % (0-3); EOS # 0.1 x10^3/uL (0.0-0.7); EOS % 1 % (0-3); HEMATOCRIT 36.5 % (39.0-53.0); HEMOGLOBIN 12.2 g/dL (13.0-17.5); LYMPH # 0.5 x10^3/uL (1.0-4.8); LYMPH % 6 % (24-48); MEAN CORPUSCULAR HEMOGLOBIN 32 pg (25-35); MEAN CORPUSCULAR HGB CONC 33 g/dL (31-37); MEAN CORPUSCULAR VOLUME 94 fL (79-100); MONO # 0.6 x10^3/uL (0.0-1.1); MONO % 7 % (0-9); NEUT # 7.9 x10^3uL (1.8-7.7); NEUT % 86 % (31-73); PLATELET COUNT 178 x10^3/uL (140-400); RED BLOOD COUNT 3.87 x10^6/uL (4.30-5.70); RED CELL DISTRIBUTION WIDTH 14.4 % (11.5-14.5); WHITE BLOOD COUNT 9.2 x10^3/uL (4.0-11.0)
[2019-01-23 07:39] LABS: ALBUMIN 2.7 g/dL (3.4-5.0); ALBUMIN/GLOBULIN RATIO 0.7 (1.0-1.7); CREATININE 1.6 mg/dL (0.7-1.3); GFR 41.6; TOTAL BILIRUBIN 0.6 mg/dL (0.2-1.0); TOTAL PROTEIN 6.4 g/dL (6.4-8.2)
[2019-01-23] MEDS ORDERED: ACETAMINOPHEN 325 MG TABLET PO PRN (07:45)
[2019-01-23] MEDS ORDERED: METHYL SALICYLATE/MENTHOL TOPICAL OINTMENT 29GM TUBE. TP PRN (07:45)
[2019-01-23] MEDS ORDERED: MAGNESIUM HYDROXIDE 2,400 MG/30 ML ORAL.SUSP. PO PRN (07:45)
--- NOTE | 2019-01-23 07:45 | NUR ---
NSG NOTE; ADMISSION ADMIT TO ROOM 125 AT 0645 FROM [facility] VIA BED ACCOMP BY STAFF REPORT RECEIVED FROM PATRICK DURBIN PT HAS INCREASING SOA WITH HYPOXIA AND UTI
[2019-01-23 07:58] LABS: BGAS PH 7.4 (7.35-7.46)
[2019-01-23] MEDS: BUDESONIDE 0.5 MG/2 ML NEBU NEB SCH ×3 (08:00→22:05)
[2019-01-23] MEDS: IPRATRPIUM/ALBUTEROL 0.5/2.5MG 3 ML NEBU. NEB SCH ×5 (08:00→22:05)
[2019-01-23] MEDS: LACTOBACILLUS RHAMNOSUS GG 1 CAPSULE. PO SCH ×2 (08:43→20:22)
[2019-01-23] MEDS: SERTRALINE 50 MG TABLET. PO SCH (08:44)
[2019-01-23] MEDS: DIVALPROEX 125 MG CAP.SPRINK PO SCH ×2 (08:44→20:22)
[2019-01-23] MEDS: RIVASTIGMINE 13.3MG PATCH. TD SCH (08:45)
[2019-01-23] MEDS: MULTIVITAMIN with MINERAL TABLET. PO SCH (08:45)
[2019-01-23] MEDS: TAMSULOSIN 0.4 MG CAP.ER.24H. PO SCH (08:45)
[2019-01-23] MEDS: GLUCOSAMINE 500 MG CAPSULE PO SCH (08:46)
[2019-01-23] MEDS: CALCIUM CARB/VIT D3 500/200 TABLET PO SCH (08:49)
--- NOTE | 2019-01-23 08:54 | RAD ---
Portable chest, 01/23/2019: HISTORY: Hypoxia Comparison is made to a study from 01/22/2019. The heart size and pulmonary vascularity are normal. There is moderate tortuosity of the thoracic aorta. The right hemidiaphragm remains mildly elevated. There are unchanged streaky opacities in the right lung base compatible with discoid atelectasis and/or scarring. There are minimal streaky left basilar opacities. These findings are unchanged. No new pulmonary abnormality is seen. There is no evidence of pleural fluid. IMPRESSION: 1. Unchanged elevation of the right hemidiaphragm with moderate discoid atelectasis and/or scarring in the right base. 2. Minimal left basilar atelectasis or scarring. 3. No significant change since 01/22/2019. Electronically signed by: John Figueroa MD (01/23/2019 8:51 AM) [facility]
[2019-01-23] MEDS ORDERED: MAG HYDROX/AL HYDROX/SIMETH 30 ML ORAL.SUSP PO PRN (09:00)
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
[2019-01-23] MEDS: HALOPERIDOL LACT 5 MG/ML VIAL. IM PRN ×2 (09:40→20:22)
--- NOTE | 2019-01-23 10:02 | NUR ---
NSG NOTE; IM HALDOL GIVEN PT BECAME MORE THREATENING AND AGGRESSIVE WITH ME STANDING IN THE DOOR AND WAS ATTEMPTING TO LEAVE HIM ROOM IM HALDOL WAS GIVEN
[2019-01-23] MEDS: cefTRIAXone IM 1 GM VIAL IM SCH (10:27)
[2019-01-23] MEDS: NYSTATIN/TRIAMCIN TOPICAL CREAM 15GM TUBE. TP SCH ×2 (10:27→20:23)
--- NOTE | 2019-01-23 11:04 | NUR ---
NSG NOTE; PT CALMER HE AMB IN THE COULTER WITH STANDBY ASSIST OVER TO THE SKILLED UNIT'S DAY ROOM WHERE HE IS MORE COMFORTABLE. HE IS RESTING ON THE SOFA WATCHING TV
--- NOTE | 2019-01-23 13:08 | HP ---
ADMIT DATE: 01/23/2019 HISTORY OF PRESENT ILLNESS: The patient is an 83-year-old male patient who was transferred from [facility] on account of hypoxia, currently oxygen saturation was in the 80s and has required up to 4 liters of oxygen to maintain his oxygen saturation more than 90%. There was no complaint of any chest pain or shortness of breath. He was treated with IV ceftriaxone for UTI. He was also on some IV fluid as his intake was poor and therefore he was transferred to [address] [place] [address] to continue with IV antibiotic, IV fluid and to investigate the source of his hypoxemia. The patient himself is extremely demented and does not give any useful information. PAST MEDICAL HISTORY: Significant for benign prostatic hypertrophy, gastroesophageal reflux disease, hypothyroidism, generalized osteoarthritis, degenerative disk disease, low back pain, chronic obstructive pulmonary disease. He is also known to have erectile dysfunction, chronic rhinitis, has history of diverticulosis and colon polyps, internal hemorrhoids, obstructive sleep apnea, essential hypertension, actinic keratosis. He has nonexudative age-related macular degeneration, bilateral pseudophakia, coronary artery disease, left anterior fascicular block and iron deficiency anemia. PAST SURGICAL HISTORY: Significant for arthroscopic surgery of his left knee, colonoscopy and polypectomy, and also bilateral cataract extraction. PAST PSYCHIATRIC HISTORY: Significant for dementia with behavioral disturbances. He is also known to have obsessive compulsive disorder, preoccupied and constantly making demands with marked mood swings and difficulty redirecting. He was admitted as a transfer from the [facility]. ALLERGIES: He is allergic to GALANTAMINE. MEDICATIONS: He is currently on following medications: He is on rivastigmine 13.3 mg per 24 hour transdermal patch daily, Spiriva inhaler 2 puffs once a day, albuterol sulfate for ProAir 1 puff every 6 hours, tamsulosin 0.4 mg daily, ferrous sulfate 325 mg once a day. pain relief cream applied topically twice a day, sertraline 50 mg daily, trazodone 150 mg at bedtime, calcium citrate 200 mg once a day. He is on Symbicort 80/4.5 mcg inhaler 2 puffs twice a day. He is on guaifenesin 200 mg daily, ranitidine 300 mg twice a day, levothyroxine 137 mcg once a day, Nystatin/triamcinolone cream applied topically twice a day, multivitamin 1 tablet once a day, Ocuvite Lutein 25/5 mg soft gel twice a day. FAMILY HISTORY: Noncontributory. SOCIAL HISTORY: He is , was living with his . He is an ex-smoker, does not drink or smoke anymore. He does not drink alcohol or use any recreational drugs. REVIEW OF SYSTEMS: Unobtainable. The patient is extremely demented. PHYSICAL EXAMINATION: GENERAL: On arrival to [address] [place] [address], patient looked somewhat pale, but no jaundice or cyanosis. No lymphadenopathy, no thyromegaly. No jugular venous distension. No limb edema. VITAL SIGNS: His heart rate was 106, blood pressure 141/94, temperature was 98, respiratory rate 20, and oxygen saturation was 95% on 2.5 liters of oxygen. According to the nursing staff at [facility], his oxygen saturation was only 80% on room air. HEAD, EYES, EARS, NOSE, AND THROAT: Showed he is normocephalic, atraumatic. NECK: Supple. HEART: Showed normal first and second heart sounds. No gallop, rub, or murmur. CHEST: Clear to auscultation. No crepitation or rhonchi. ABDOMEN: Distended, soft, nontender. NEUROLOGIC: He is demented without any obvious lateralizing sign. All his cranial nerves are intact. He moves extremities without difficulty. He ambulates without assistance or assistive devices. LABORATORY DATA: As of this morning showed a white cell count 9200, hemoglobin 12, hematocrit 36.5, MCV 94, platelet count of 178,000 with normal manual differential. His blood gases showed a pH of 7.40, pCO2 of 44, pO2 of 84, bicarbonate 27 and oxygen saturation was 96% on FiO2 of 28%. Serum sodium was 143, potassium 4, chloride 106, bicarbonate 29, anion gap of 8, BUN 23, creatinine 1.6, estimated GFR was 42 mL per minute. His glucose was 90. Lactic acid was only 0.8. Calcium was 8. Total bilirubin, AST, ALT, alkaline phosphatase were normal. His total protein was 6.4, albumin was 2.7. We did a chest x-ray. His chest x-ray showed that the heart size and pulmonary vascularity are normal. There is moderate tortuosity of the thoracic aorta. The right hemidiaphragm remains mildly elevated. There are unchanged streaky opacities in the right lung base, compatible with discoid atelectasis and/or scarring. There are minimal streaky left basilar opacities, these findings are unchanged and no new pulmonary abnormalities seen. There is no evidence of pleural fluid. SUMMARY: So in summary, this is an 83-year-old male patient who was transferred from [facility] on account of acute hypoxic respiratory failure. The patient denied any shortness of breath or chest pain. He was also treated for UTI and was on ceftriaxone 1 gram IV daily. He has a multitude of other medical problems that we will continue all his medication, continue to monitor his oxygen. Unfortunately, his creatinine is 1.6 and estimated GFR of 41 mL per minute makes the CT angio risky. We will continue to rehydrate him for the time being and we might have to do the CT scan tomorrow if and when his kidney function improves. LARRY HAWTHORNE MD DR: CARLA/ruiz JOB#: [id number] / [id number]
[2019-01-23] MEDS: LEVOTHYROXINE 137 MCG TABLET PO SCH (14:00)
[2019-01-23 14:13] VITALS: BP 108/75
[2019-01-23] MEDS: IV NORMAL SALINE 1,000ML 1,000 ML IV SCH ×2 (14:15→20:22)
--- NOTE | 2019-01-23 19:48 | NUR ---
Patient transferred to [facility] room 519. Report called to Elizabeth DURBIN. Patients packet sent with patient. Tele monitor removed. All belongings with patient at time of transfer.
[2019-01-23] MEDS ORDERED: BISACODYL 10 MG SUPP.RECT PR PRN (20:00)
--- NOTE | 2019-01-23 20:00 | NUR ---
Patient became agitated with staff and combative. Patient was pulling at IV. Administered PRN Haldol.
[2019-01-23] MEDS: traZODone 150 MG TABLET. PO SCH (20:22)
[2019-01-23 20:57] VITALS: BP 138/83
[2019-01-23 23:00] VITALS: BP 131/82
[2019-01-24] MEDS: BUDESONIDE 0.5 MG/2 ML NEBU NEB SCH ×2 (04:56→20:45)
[2019-01-24] MEDS: IPRATRPIUM/ALBUTEROL 0.5/2.5MG 3 ML NEBU. NEB SCH ×4 (04:56→20:44)
[2019-01-24] MEDS: GLUCOSAMINE 500 MG CAPSULE PO SCH (08:52)
[2019-01-24] MEDS: LACTOBACILLUS RHAMNOSUS GG 1 CAPSULE. PO SCH ×2 (08:52→20:06)
[2019-01-24] MEDS: MULTIVITAMIN with MINERAL TABLET. PO SCH (08:52)
[2019-01-24] MEDS: LEVOTHYROXINE 137 MCG TABLET PO SCH (08:52)
[2019-01-24] MEDS: CALCIUM CARB/VIT D3 500/200 TABLET PO SCH (08:52)
[2019-01-24] MEDS: TAMSULOSIN 0.4 MG CAP.ER.24H. PO SCH (08:53)
[2019-01-24] MEDS: NYSTATIN/TRIAMCIN TOPICAL CREAM 15GM TUBE. TP SCH ×2 (08:53→20:06)
[2019-01-24] MEDS: SERTRALINE 50 MG TABLET. PO SCH (08:53)
[2019-01-24] MEDS: RIVASTIGMINE 13.3MG PATCH. TD SCH (08:53)
[2019-01-24] MEDS: DIVALPROEX 125 MG CAP.SPRINK PO SCH ×2 (08:53→20:06)
[2019-01-24] MEDS: FERROUS SULFATE 325 MG TABLET. PO SCH (08:53)
[2019-01-24] MEDS: cefTRIAXone IM 1 GM VIAL IM SCH ×2 (08:54→09:00)
[2019-01-24] MEDS ORDERED: cefTRIAXone IM 1 GM VIAL IM SCH (09:00)
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
[2019-01-24 09:43] LABS: HEMATOCRIT 35.9 % (39.0-53.0); HEMOGLOBIN 11.8 g/dL (13.0-17.5); RED BLOOD COUNT 3.81 x10^6/uL (4.30-5.70); RED CELL DISTRIBUTION WIDTH 14.7 % (11.5-14.5); WHITE BLOOD COUNT 5.5 x10^3/uL (4.0-11.0)
[2019-01-24 09:53] LABS: CALCIUM 8.2 mg/dL (8.5-10.1); CREATININE 1.3 mg/dL (0.7-1.3); GFR 52.9; POTASSIUM 4.1 mmol/L (3.5-5.1)
[2019-01-24] MEDS: IV NORMAL SALINE 1,000ML 1,000 ML IV SCH (10:15)
[2019-01-24 11:11] VITALS: BP 115/69
[2019-01-24] MEDS: ALBUTEROL SULFATE 2.5 MG/3 ML NEBU. INH PRN (12:12)
--- NOTE | 2019-01-24 14:27 | NUR ---
Nursing Note: Pt has been sleeping most of this shift. Per health physics technician RN, pt did not actually go to sleep until approx. 0400 today. IM Rocephin changed to IV this morning and administered. Pt took all meds without difficulty. Pt has attempted to get out of bed multiple times but is easily redirected. Continue to monitor.
[2019-01-24 14:44] VITALS: BP 127/85
--- NOTE | 2019-01-24 15:11 | RAD ---
Chest, 2 views, 01/24/2019: HISTORY: Shortness of breath, hypoxia Comparison is made to a study from 01/23/2019. There is unchanged elevation of the right hemidiaphragm with ongoing discoid atelectasis and/or scarring in the right base. The heart size is unchanged. Retrocardiac left basilar opacities most likely represent a combination of atelectasis, scarring and a probable small hiatal hernia. There is tortuosity of the thoracic aorta. The pulmonary vascularity is normal. No significant pleural fluid is seen. IMPRESSION: 1. Unchanged elevation of the right hemidiaphragm with right basilar discoid atelectasis and/or scarring. 2. Mild ongoing left basilar atelectasis and/or scarring. 3. Probable small hiatal hernia. Electronically signed by: John Figueroa MD (01/24/2019 3:09 PM) [facility]
--- NOTE | 2019-01-24 16:23 | PDOC ---
Exam Note: Tony Note: Please also refer to the separate dictated note~for this date of service dictated separately.~Patient seen individually. Discussed the patient with Nursing staff reviewed the chart.~Reviewed interim history and current functioning. Reviewed vital signs,~Labs/ Radiology~and current medications noted below. Continue current treatment with the changes noted in the dictated addendum note. This is a late entry for 01/23/19 Assessment: Vital Signs: VS - Last 72 Hours, by Label Date Time Temp Pulse Resp B/P (MAP) Pulse Ox O2 Delivery O2 Flow Rate FiO2 01/24/19 15:08 95 Nasal Cannula 2.0 01/24/19 14:44 98.0 89 22 127/85 (99) 94 Nasal Cannula 2.5 01/24/19 11:11 98.4 79 20 115/69 (84) 94 Nasal Cannula 2.0 01/24/19 09:16 96 Nasal Cannula 2.0 01/24/19 08:00 Nasal Cannula 2.5 01/24/19 05:01 92 Nasal Cannula 2.0 01/24/19 04:58 92 Nasal Cannula 2.0 01/23/19 23:00 98.7 107 20 131/82 (98) 90 Nasal Cannula 2.0 01/23/19 22:07 93 Room Air 01/23/19 22:06 93 Room Air 01/23/19 20:57 98.4 108 20 138/83 (101) 88 01/23/19 20:00 Room Air 01/23/19 16:21 92 Room Air 01/23/19 14:13 98.2 104 20 108/75 (86) 94 Room Air 01/23/19 11:11 92 Room Air 01/23/19 08:00 Nasal Cannula 2.5 01/23/19 06:52 98.1 106 20 141/94 (110) 95 Nasal Cannula 2.5 Vital Signs Date Time Temp Pulse Resp B/P (MAP) Pulse Ox O2 Delivery O2 Flow Rate FiO2 01/24/19 15:08 95 Nasal Cannula 2.0 01/24/19 14:44 98.0 89 22 127/85 (99) I&O Intake and Output 01/24/19 07:00 Intake Total 1165 ml Balance 1165 ml Intake Oral 60 ml IV Total 585 ml Blood Product IV Normal Saline Flush 520 ml # Voids 2 Labs: Laboratory Tests Test 01/23/19 22:19 01/24/19 09:35 Nasal Screen MRSA (PCR) Negative (Negative) White Blood Count 5.5 x10^3/uL (4.0-11.0) Red Blood Count 3.81 x10^6/uL (4.30-5.70) L Hemoglobin 11.8 g/dL (13.0-17.5) L Hematocrit 35.9 % (39.0-53.0) L Mean Corpuscular Volume 94 fL (79-100) Mean Corpuscular Hemoglobin 31 pg (25-35) Mean Corpuscular Hemoglobin Concent 33 g/dL (31-37) Red Cell Distribution Width 14.7 % (11.5-14.5) H Platelet Count 185 x10^3/uL (140-400) Sodium Level 142 mmol/L (136-145) Potassium Level 4.1 mmol/L (3.5-5.1) Chloride Level 108 mmol/L (98-107) H Carbon Dioxide Level 27 mmol/L (21-32) Anion Gap 7 (6-14) Blood Urea Nitrogen 21 mg/dL (8-26) Creatinine 1.3 mg/dL (0.7-1.3) Estimated GFR (Cockcroft-Gault) 52.9 Glucose Level 91 mg/dL (70-99) Calcium Level 8.2 mg/dL (8.5-10.1) L Current Medications: Meds: Current Medications Ceftriaxone Sodium 1 gm/ Sodium Chloride 50 ml @ 100 mls/hr Q24H IV ; Start 01/23/19 at 09:00; Stop 01/23/19 at 10:20; Status DC Acetaminophen (Tylenol) 650 mg PRN Q6HRS PRN PO PAIN / TEMP; Start 01/23/19 at 07:45 Albuterol Sulfate (Ventolin) 2.5 mg PRN Q6HRS PRN INH SHORTNESS OF BREATH Last administered on 01/24/19at 12:12; Start 01/23/19 at 07:45 Guaifenesin (Guaifenesin) 200 mg DAILY PO Last administered on 01/24/19at 08:53; Start 01/23/19 at 09:00 Albuterol/ Ipratropium (Duoneb) 3 ml QID NEB Last administered on 5/21/19at 15:08; Start 01/23/19 at 09:00 Levothyroxine Sodium (Synthroid) 137 mcg DAILYAC PO Last administered on 01/24/19 08:52; Start 01/23/19 at 11:00 Olanzapine (ZyPREXA ZYDIS) 2.5 mg PRN Q4HRS PRN PO ANXIETY / AGITATION Last administered on 01/23/19 14:00; Start 01/23/19 at 07:45 Rivastigmine (Exelon 13.3mg) 1 patch DAILY TD Last administered on 01/24/19 08:53; Start 01/23/19 at 09:00 Sertraline HCl (Zoloft) 50 mg DAILY PO Last administered on 01/24/19 08:53; Start 01/23/19 at 09:00 Tamsulosin HCl (Flomax) 0.4 mg DAILY PO Last administered on 01/24/19 08:53; Start 01/23/19 at 09:00 Budesonide (Pulmicort) 0.5 mg RTBID NEB Last administered on 01/24/19 04:56; Start 01/23/19 at 08:00 Calcium/Vitamin D (Oscal D 500mg/ 200uts) 1 tab DAILY PO Last administered on 01/24/19 08:52; Start 01/23/19 at 09:00 Vitamin D (Vitamin D3) 50,000 unit WEEKLY PO ; Start 01/28/19 at 09:00 Divalproex Sodium (Depakote Sprinkles) 250 mg BID PO Last administered on 01/24/19 08:53; Start 01/23/19 at 09:00 Ferrous Sulfate (Feosol) 325 mg DAILYWBKFT PO Last administered on 01/24/19 08:53; Start 01/24/19 at 09:00 Glucosamine Sulfate (Glucosamine) 1,000 mg DAILY PO Last administered on 01/24/19 08:52; Start 01/23/19 at 09:00 Lactobacillus Rhamnosus (Culturelle) 1 cap BID PO Last administered on 01/24/19 08:52; Start 01/23/19 at 09:00 Al Hydroxide/Mg Hydroxide (Mylanta Plus Xs) 15 ml PRN AFTMEALHC PRN PO DYSPE PSIA; Start 01/23/19 at 09:00 Magnesium Hydroxide (Milk Of Magnesia) 2,400 mg PRN QHS PRN PO CONSTIPATION; Start 01/23/19 at 07:45 Multi-Ingredient Ointment (Analgesic Cody) 1 amy PRN BID PRN TP foot pain; Start 01/23/19 at 07:45 Multivitamins/ Calcium (Thera-M Plus) 1 tab DAILY PO Last administered on 01/24/19at 08:52; Start 01/23/19 at 09:00 Nystatin/ Triamcinolone Acetonide (Mycolog Ii) 1 amy BID TP Last administered on 01/24/19at 08:53; Start 01/23/19 at 09:00 Olanzapine (ZyPREXA ZYDIS) 10 mg QHS PO Last administered on 01/23/19at 20:24; Start 01/23/19 at 21:00 Trazodone HCl (Desyrel) 150 mg QHS PO Last administered on 01/23/19at 20:22; Start 01/23/19 at 21:00 Haloperidol Lactate (Haldol) 5 mg PRN Q4HRS PRN IM AGITATION Last administered on 01/23/19at 20:22; Start 01/23/19 at 09:30 Ceftriaxone Sodium (Rocephin Im) 1 gm DAILY IM ; Start 01/24/19 at 09:00; Status Cancel Ceftriaxone Sodium (Rocephin Im) 1 gm DAILY IM Last administered on 01/23/19at 10:27; Start 01/23/19 at 10:30 Sodium Chloride 1,000 ml @ 100 mls/hr Q10H IV Last administered on 01/23/19at 20:22; Start 01/23/19 at 14:15; Stop 01/24/19 at 14:21; Status DC Bisacodyl (Dulcolax Supp) 10 mg PRN DAILY PRN ID CONSTIPATION; Start 01/23/19 at 20:00; Stop 01/23/19 at 23:59; Status DC Ceftriaxone Sodium 1 gm/ Sodium Chloride 50 ml @ 100 mls/hr 1X ONCE IV Last administered on 01/24/19at 09:19; Start 01/24/19 at 09:30; Stop 01/24/19 at 09:59; Status DC Active Scripts Active Reported Zyprexa Zydis (Olanzapine) 10 Mg Tab.rapdis 10 Mg PO QHS Zyprexa Zydis (Olanzapine) 5 Mg Tab.rapdis 2.5 Mg PO PRN Q4HRS PRN Multivitamins (Multivitamin) 1 Each Tablet 1 Tab PO DAILY Milk Of Magnesia (Magnesium Hydroxide) 2,400 Mg/10 Ml Oral.susp 2,400 Mg PO PRN QHS PRN Advanced Antacid Liquid (Mag Hydrox/Al Hydrox/Simeth) 355 Ml Oral.susp 15 Ml PO PRN AFTMEALHC PRN Culturelle (Lactobacillus Rhamnosus Gg) 1 Each Capsule 1 Each PO BID Duoneb 0.5-3(2.5) Mg/3 Ml (Albuterol/Ipratropium) 3 Ml Ampul.neb 3 Ml NEB QID Depakote Sprinkle (Divalproex Sodium) 125 Mg Cap.sprink 250 Mg PO BID Vitamin D3 (Cholecalciferol (Vitamin D3)) 5,000 Unit Tablet 50,000 Unit PO WEEKLY Calcium 500 + Vit D 400 Tablet (Calcium Carbonate/Vitamin D3) 1 Each Tablet 1 Each PO DAILY Pulmicort (Budesonide) 0.5 Mg/2 Ml Ampul.neb 0.5 Mg NEB RTBID Tylenol (Acetaminophen) 325 Mg Tablet 650 Mg PO PRN Q6HRS PRN Multivitamins (Multivitamin) 1 Each Tablet 1 Each PO DAILY Nystatin-Triamcinolone Cream (Nystatin/Triamcin) 15 Gm Cream..g. 1 Amy TP BID Guaifenesin 200 Mg Tablet 200 Mg PO DAILY Glucosamine (Glucosamine Sulfate 2KCL) 1,000 Mg Tablet 1,000 Mg PO DAILY Flomax (Tamsulosin Hcl) 0.4 Mg Cap.er.24h 0.4 Mg PO DAILY Zoloft (Sertraline Hcl) 50 Mg Tablet 50 Mg PO DAILY EXELON 13.3mg/24hr (Rivastigmine) 1 Each Patch.td24 1 Patch TD DAILY Pain-Relief Cream (Methyl Salicylate/Menth/Camph) 113.3 Gm Cream..g. 1 Amy TP PRN BID PRN Levothyroxine Sodium 137 Mcg Tablet 137 Mcg PO DAILYAC Ferrous Gluconate 324 Mg Tablet 324 Mg PO DAILY Proair Hfa Inhaler (Albuterol Sulfate) 8.5 Gm Hfa.aer.ad 1 Puff INH PRN Q6HRS PRN Trazodone Hcl 50 Mg Tablet 150 Mg PO QHS I have reviewed the current psychotropics carefully including drug interactions. Risk benefit ratio favors no change other than as noted in my dictated progress note. Diagnosis: Problems: (1) Anxiety disorder (2) Dementia in Alzheimer's disease with depression (3) Dementia in Alzheimer's disease with delusions (4) Dementia, vascular, with delusions (5) Dementia, vascular, with depression (6) Impulse control disorder MYLES SHORT MD January 24, 2019 16:23
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
--- NOTE | 2019-01-24 18:50 | PDOC ---
Exam Note: Tony Note: Please also refer to the separate dictated note~for this date of service dictated separately.~Patient seen individually. Discussed the patient with Nursing staff reviewed the chart.~Reviewed interim history and current functioning. Reviewed vital signs,~Labs/ Radiology~and current medications noted below. Continue current treatment with the changes noted in the dictated addendum note Assessment: Vital Signs: Vital Signs Date Time Temp Pulse Resp B/P (MAP) Pulse Ox O2 Delivery O2 Flow Rate FiO2 01/24/19 15:08 95 Nasal Cannula 2.0 01/24/19 14:44 98.0 89 22 127/85 (99) I&O Intake and Output 01/24/19 07:00 Intake Total 1165 ml Balance 1165 ml Intake Oral 60 ml IV Total 585 ml Blood Product IV Normal Saline Flush 520 ml # Voids 2 Labs: Laboratory Tests Test 01/23/19 22:19 01/24/19 09:35 Nasal Screen MRSA (PCR) Negative (Negative) White Blood Count 5.5 x10^3/uL (4.0-11.0) Red Blood Count 3.81 x10^6/uL (4.30-5.70) L Hemoglobin 11.8 g/dL (13.0-17.5) L Hematocrit 35.9 % (39.0-53.0) L Mean Corpuscular Volume 94 fL (79-100) Mean Corpuscular Hemoglobin 31 pg (25-35) Mean Corpuscular Hemoglobin Concent 33 g/dL (31-37) Red Cell Distribution Width 14.7 % (11.5-14.5) H Platelet Count 185 x10^3/uL (140-400) Sodium Level 142 mmol/L (136-145) Potassium Level 4.1 mmol/L (3.5-5.1) Chloride Level 108 mmol/L (98-107) H Carbon Dioxide Level 27 mmol/L (21-32) Anion Gap 7 (6-14) Blood Urea Nitrogen 21 mg/dL (8-26) Creatinine 1.3 mg/dL (0.7-1.3) Estimated GFR (Cockcroft-Gault) 52.9 Glucose Level 91 mg/dL (70-99) Calcium Level 8.2 mg/dL (8.5-10.1) L Current Medications: Meds: Current Medications Ceftriaxone Sodium 1 gm/ Sodium Chloride 50 ml @ 100 mls/hr Q24H IV ; Start 01/23/19 at 09:00; Stop 01/23/19 at 10:20; Status DC Acetaminophen (Tylenol) 650 mg PRN Q6HRS PRN PO PAIN / TEMP; Start 01/23/19 at 07:45 Albuterol Sulfate (Ventolin) 2.5 mg PRN Q6HRS PRN INH SHORTNESS OF BREATH Last administered on 01/24/19at 12:12; Start 01/23/19 at 07:45 Guaifenesin (Guaifenesin) 200 mg DAILY PO Last administered on 01/24/19 08:53; Start 01/23/19 at 09:00 Albuterol/ Ipratropium (Duoneb) 3 ml QID NEB Last administered on 01/24/19at 15:08; Start 01/23/19 at 09:00 Levothyroxine Sodium (Synthroid) 137 mcg DAILYAC PO Last administered on 01/24/19 08:52; Start 01/23/19 at 11:00 Olanzapine (ZyPREXA ZYDIS) 2.5 mg PRN Q4HRS PRN PO ANXIETY / AGITATION Last administered on 01/23/19at 14:00; Start 01/23/19 at 07:45 Rivastigmine (Exelon 13.3mg) 1 patch DAILY TD Last administered on 01/24/19 08:53; Start 01/23/19 at 09:00 Sertraline HCl (Zoloft) 50 mg DAILY PO Last administered on 01/24/19 08:53; Start 01/23/19 at 09:00 Tamsulosin HCl (Flomax) 0.4 mg DAILY PO Last administered on 01/24/19 08:53; Start 01/23/19 at 09:00 Budesonide (Pulmicort) 0.5 mg RTBID NEB Last administered on 01/24/19at 04:56; Start 01/23/19 at 08:00 Calcium/Vitamin D (Oscal D 500mg/ 200uts) 1 tab DAILY PO Last administered on 01/24/19at 08:52; Start 01/23/19 at 09:00 Vitamin D (Vitamin D3) 50,000 unit WEEKLY PO ; Start 01/28/19 at 09:00 Divalproex Sodium (Depakote Sprinkles) 250 mg BID PO Last administered on 01/24/19 08:53; Start 01/23/19 at 09:00 Ferrous Sulfate (Feosol) 325 mg DAILYWBKFT PO Last administered on 01/24/19 08:53; Start 01/24/19 at 09:00 Glucosamine Sulfate (Glucosamine) 1,000 mg DAILY PO Last administered on 01/24/19 08:52; Start 01/23/19 at 09:00 Lactobacillus Rhamnosus (Culturelle) 1 cap BID PO Last administered on 01/24/19 08:52; Start 01/23/19 at 09:00 Al Hydroxide/Mg Hydroxide (Mylanta Plus Xs) 15 ml PRN AFTMEALHC PRN PO DYSPEPSIA; Start 01/23/19 at 09:00 Magnesium Hydroxide (Milk Of Magnesia) 2,400 mg PRN QHS PRN PO CONSTIPATION; Start 01/23/19 at 07:45 Multi-Ingredient Ointment (Analgesic Speed) 1 amy PRN BID PRN TP foot pain; Start 01/23/19 at 07:45 Multivitamins/ Calcium (Thera-M Plus) 1 tab DAILY PO Last administered on 01/24/19 08:52; Start 01/23/19 at 09:00 Nystatin/ Triamcinolone Acetonide (Mycolog Ii) 1 amy BID TP Last administered on 01/24/19 08:53; Start 01/23/19 at 09:00 Olanzapine (ZyPREXA ZYDIS) 10 mg QHS PO Last administered on 01/23/19 20:24; Start 01/23/19 at 21:00 Trazodone HCl (Desyrel) 150 mg QHS PO Last administered on 01/23/19 20:22; Start 01/23/19 at 21:00 Haloperidol Lactate (Haldol) 5 mg PRN Q4HRS PRN IM AGITATION Last administered on 01/23/19 20:22; Start 01/23/19 at 09:30 Ceftriaxone Sodium (Rocephin Im) 1 gm DAILY IM ; Start 01/24/19 at 09:00; Status Cancel Ceftriaxone Sodium (Rocephin Im) 1 gm DAILY IM Last administered on 01/23/19at 10:27; Start 01/23/19 at 10:30 Sodium Chloride 1,000 ml @ 100 mls/hr Q10H IV Last administered on 01/23/19at 20:22; Start 01/23/19 at 14:15; Stop 01/24/19 at 14:21; Status DC Bisacodyl (Dulcolax Supp) 10 mg PRN DAILY PRN ND CONSTIPATION; Start 01/23/19 at 20:00; Stop 01/23/19 at 23:59; Status DC Ceftriaxone Sodium 1 gm/ Sodium Chloride 50 ml @ 100 mls/hr 1X ONCE IV Last administered on 01/24/19at 09:19; Start 01/24/19 at 09:30; Stop 01/24/19 at 09:59; Status DC Active Scripts Active Reported Zyprexa Zydis (Olanzapine) 10 Mg Tab.rapdis 10 Mg PO QHS Zyprexa Zydis (Olanzapine) 5 Mg Tab.rapdis 2.5 Mg PO PRN Q4HRS PRN Multivitamins (Multivitamin) 1 Each Tablet 1 Tab PO DAILY Milk Of Magnesia (Magnesium Hydroxide) 2,400 Mg/10 Ml Oral.susp 2,400 Mg PO PRN QHS PRN Advanced Antacid Liquid (Mag Hydrox/Al Hydrox/Simeth) 355 Ml Oral.susp 15 Ml PO PRN AFTMEALHC PRN Culturelle (Lactobacillus Rhamnosus Gg) 1 Each Capsule 1 Each PO BID Duoneb 0.5-3(2.5) Mg/3 Ml (Albuterol/Ipratropium) 3 Ml Ampul.neb 3 Ml NEB QID Depakote Sprinkle (Divalproex Sodium) 125 Mg Cap.sprink 250 Mg PO BID Vitamin D3 (Cholecalciferol (Vitamin D3)) 5,000 Unit Tablet 50,000 Unit PO WEEKLY Calcium 500 + Vit D 400 Tablet (Calcium Carbonate/Vitamin D3) 1 Each Tablet 1 Each PO DAILY Pulmicort (Budesonide) 0.5 Mg/2 Ml Ampul.neb 0.5 Mg NEB RTBID Tylenol (Acetaminophen) 325 Mg Tablet 650 Mg PO PRN Q6HRS PRN Multivitamins (Multivitamin) 1 Each Tablet 1 Each PO DAILY Nystatin-Triamcinolone Cream (Nystatin/Triamcin) 15 Gm Cream..g. 1 Amy TP BID Guaifenesin 200 Mg Tablet 200 Mg PO DAILY Glucosamine (Glucosamine Sulfate 2KCL) 1,000 Mg Tablet 1,000 Mg PO DAILY Flomax (Tamsulosin Hcl) 0.4 Mg Cap.er.24h 0.4 Mg PO DAILY Zoloft (Sertraline Hcl) 50 Mg Tablet 50 Mg PO DAILY EXELON 13.3mg/24hr (Rivastigmine) 1 Each Patch.td24 1 Patch TD DAILY Pain-Relief Cream (Methyl Salicylate/Menth/Camph) 113.3 Gm Cream..g. 1 Amy TP PRN BID PRN Levothyroxine Sodium 137 Mcg Tablet 137 Mcg PO DAILYAC Ferrous Gluconate 324 Mg Tablet 324 Mg PO DAILY Proair Hfa Inhaler (Albuterol Sulfate) 8.5 Gm Hfa.aer.ad 1 Puff INH PRN Q6HRS PRN Trazodone Hcl 50 Mg Tablet 150 Mg PO QHS I have reviewed the current psychotropics carefully including drug interactions. Risk benefit ratio favors no change other than as noted in my dictated progress note. Diagnosis: Problems: (1) Dementia in Alzheimer's disease with delusions (2) Dementia in Alzheimer's disease with depression (3) Dementia, vascular, with delusions (4) Dementia, vascular, with depression (5) Impulse control disorder (6) Anxiety disorder MYLES SHORT MD January 24, 2019 18:50
[2019-01-24 19:20] VITALS: BP 76/85
[2019-01-24] MEDS: traZODone 150 MG TABLET. PO SCH (20:06)
--- NOTE | 2019-01-24 21:54 | PN ---
DATE: 01/24/2019 SUBJECTIVE: The patient is resting, slightly propped up, sleeping comfortably. He apparently has not slept the whole night and has desaturated last night, down to 80%, was started on oxygen. His IV fluids were discontinued and has been also having recurrent bouts of cough and sputum. PHYSICAL EXAMINATION: GENERAL: When I examined him this afternoon, he looked well and was clearly in no apparent respiratory distress, pale, but no jaundice, cyanosis, or thyromegaly. No jugular venous distension. No lower limb edema. VITAL SIGNS: His heart rate was 79, blood pressure was 115/69, temperature was 98.4, respiratory rate 20 and oxygen saturation was 94% on 2 liters of oxygen. HEENT: Examination of the head, eyes, ears, nose and throat showed normocephalic, atraumatic. NECK: Supple. HEART: Showed normal first and second heart sounds. No gallop, rub or murmur. CHEST: Clear to auscultation. No crepitation or rhonchi. ABDOMEN: Distended, soft, nontender. NEUROLOGIC: He is demented, but without any obvious lateralizing sign. All his cranial nerves are intact. EXTREMITIES: He moves extremities without difficulty, ambulates without assistance or assistive devices. His intake over the last 24 hours was 1165. No output was recorded. LABORATORY DATA: As of this morning, his white cell count is down to 5500, hemoglobin 11.6, hematocrit 36, MCV 94 and platelet count of 185,000. Serum sodium was 142, potassium 4.1, chloride 108, bicarbonate 27, anion gap of 7, BUN 21, creatinine 1.3, estimated GFR was 53 mL per minute. His glucose was 91 and calcium was 8.2. ASSESSMENT: 1. Acute hypoxic respiratory failure, probably multifactorial including obstructive sleep apnea and chronic obstructive pulmonary disease. 2. Urinary tract infection for which he is now on IV ceftriaxone. 3. Acute on chronic kidney injury, improving. His creatinine is down to 1.3. PLAN: My plan is to continue with IV antibiotic. I will arrange for him to have a repeat chest x-ray today and again repeat his lab work tomorrow and decide on further management accordingly. LARRY HAWTHORNE MD DR: CARLA/ruiz JOB#: [id number] / [id number]
[2019-01-25 03:10] VITALS: BP 158/98
[2019-01-25] MEDS: ALBUTEROL SULFATE 2.5 MG/3 ML NEBU. INH PRN (03:44)
[2019-01-25 05:30] VITALS: BP 155/91
[2019-01-25 06:15] LABS: CALCIUM 8.8 mg/dL (8.5-10.1); CREATININE 1.3 mg/dL (0.7-1.3); GFR 52.9; POTASSIUM 4.1 mmol/L (3.5-5.1)
[2019-01-25] MEDS: GLUCOSAMINE 500 MG CAPSULE PO SCH (07:31)
[2019-01-25] MEDS: LEVOTHYROXINE 137 MCG TABLET PO SCH (07:31)
[2019-01-25] MEDS: FERROUS SULFATE 325 MG TABLET. PO SCH (07:32)
[2019-01-25] MEDS: SERTRALINE 50 MG TABLET. PO SCH (07:32)
[2019-01-25] MEDS: CALCIUM CARB/VIT D3 500/200 TABLET PO SCH (07:32)
[2019-01-25] MEDS: cefTRIAXone IM 1 GM VIAL IM SCH (07:32)
[2019-01-25] MEDS: TAMSULOSIN 0.4 MG CAP.ER.24H. PO SCH (07:32)
[2019-01-25] MEDS: LACTOBACILLUS RHAMNOSUS GG 1 CAPSULE. PO SCH (07:32)
[2019-01-25] MEDS: DIVALPROEX 125 MG CAP.SPRINK PO SCH (07:32)
[2019-01-25] MEDS: MULTIVITAMIN with MINERAL TABLET. PO SCH (07:32)
[2019-01-25] MEDS: RIVASTIGMINE 13.3MG PATCH. TD SCH (07:33)
[2019-01-25] MEDS: NYSTATIN/TRIAMCIN TOPICAL CREAM 15GM TUBE. TP SCH (07:33)
--- NOTE | 2019-01-25 09:30 | NUR ---
Patient sat up for breakfast in chair, ate 100% of meal and took medication whole without issues. Patient denies pain or discomfort. Patient sat in chair this AM while nurse shaved patient and then ambulated to shower with standby assistance. Patient does pull O2 off periodically and states he doesnt know what it is for and doesnt think he needs it. O2 sats on Room air at rest while eating breakfast were at 90%, while nurse ambulated patient to shower sats remained at 90-94%. Patient did become SOA upon exertion and wheezing during shower, ambulated back to room with sats remaining at 90-94%. Nurse administered PRN Albuterol treatment, this was effective and patient stated that he felt much better after having treatment. Patient then sat up in chair, pulled oxygen off and asked if he could take a nap. Patient asleep now in bed with eyes closed, respirations even and non labored with sats remaining at 89% on room air, nurse placed 2.5L NC with sats now at 92% IV removed due to infiltration, also states that rocephin burned when administering. Patient tolerated IM injection well and stated that it did not hurt at all.
[2019-01-25] MEDS: IPRATRPIUM/ALBUTEROL 0.5/2.5MG 3 ML NEBU. NEB SCH (10:46)
[2019-01-25] MEDS: BUDESONIDE 0.5 MG/2 ML NEBU NEB SCH (10:46)
--- NOTE | 2019-01-25 10:48 | NUR ---
prn zyprexa given at this time, patient awakened from nap and asked his where his mother was and then started crying. Nurse at patient side along with , patient assisted to chair and tried to reorient patient along with doing relaxation techniques which have not worked. PRN zyprexa given. Patient continues to cry and is very emotional, stating "why didnt anyone tell me my mother ? I just dont remember" Clare from [facility] came down to see to sign consents. Dr. Ceja here at this time to see patient.
[2019-01-25] MEDS ORDERED: HALO5TAB IM (11:10)
--- NOTE | 2019-01-25 11:22 | NUR ---
Report given to GIFTY Lopez at this time. Plan is to transfer to [facility]
--- NOTE | 2019-01-25 12:07 | DS ---
DATE OF DISCHARGE: 01/25/2019 HOSPITAL COURSE: The patient is an 83-year-old male patient who was transferred from [address] on account of acute hypoxic respiratory failure. His urinalysis when he was upstairs was also suggestive of UTI, so we did start him on IV ceftriaxone. He has also acute on chronic kidney injury and he was treated with IV fluid. Labs, his white cell count was 12,600 and his urinalysis showed that he has at least 5-10 wbc's and small amount of leukocyte esterase. His chest x-ray done twice showed no elevated hemidiaphragm, which is stable and was noted before. However, there is no evidence of any pulmonary congestion. There is no pneumothorax, pleural effusion or pulmonary infiltrate. It transpired that the patient has obstructive sleep apnea and he desaturates when he is asleep. His stated that he has obstructive sleep apnea and he is on CPAP, but he has never used the machine. He does not even tolerate oxygen as he continued to be somewhat combative and restless, and a decision was made to transfer him back to [facility] to continue the process of inpatient psychiatric stabilization. When I saw him this morning, he was sitting comfortably in his chair, in no apparent respiratory distress. He was crying inconsolably as he was told that his mom has , although obviously his mother had long time ago; however, denied any other complaint. PHYSICAL EXAMINATION: GENERAL: When I examined him, he looked pale, no jaundice, cyanosis, or thyromegaly. No jugular venous distension. No lower limb edema. VITAL SIGNS: His heart rate was 90, blood pressure was 155/91, temperature was 98.1, respiratory rate 20, and his oxygen saturation was 97% on 2 liters of oxygen. HEAD, EYES, EARS, NOSE AND THROAT: Normocephalic, atraumatic. NECK: Supple. HEART: Showed normal first and second heart sounds. No gallop, rub or murmur. CHEST: Clear to auscultation. No crepitation or rhonchi. ABDOMEN: Distended, soft, nontender. NEUROLOGIC: He was demented, but without any obvious lateralizing sign. All his cranial nerves are intact. He moves extremities without difficulty. He ambulates without assistance or assistive devices. LABORATORY DATA: Showed his white cell count to be 5500, hemoglobin 11.8, hematocrit 35.9, MCV 94 and platelet count of 185,000. His serum sodium was 141, potassium 4.1, chloride 105, bicarbonate 29, anion gap of 7, BUN 18, creatinine 1.3, estimated GFR was 52 mL per minute. His glucose was 87, calcium was 8.8. FINAL DISCHARGE DIAGNOSES: 1. Acute on chronic hypoxic respiratory failure. 2. Obstructive sleep apnea. 3. Chronic obstructive pulmonary disease. 4. Acute on chronic kidney injury, improving. His creatinine is stabilized at 1.3. 5. The patient was treated for a possibility of urinary tract infection; however, his urine culture has grown only mixed urogenital zunilda. The patient has multiple other medical problems including benign prostatic hypertrophy, gastroesophageal reflux disease, hypothyroidism, generalized osteoarthritis, degenerative disk disease, erectile dysfunction, hypertension and nonexudative age-related macular degeneration, coronary artery disease, and left anterior fascicular block as well as iron deficiency anemia. LARRY HAWTHORNE MD DR: CARLA/ruiz JOB#: [id number] / [id number]
--- NOTE | 2019-01-25 20:31 | PN ---
DATE: 01/24/2019 PSYCHIATRIC PROGRESS NOTE This late entry 01/24/2019 covers elements not covered in my initial note. SUBJECTIVE: I met with the patient in the evening of 01/24/2019. The patient has been up all night per nursing report and did not fall asleep until about 4:00 a.m. He has been agitated after a shower later in the day on 01/24/2019 and was aggressive physically towards nursing staff. Having him walk up and down the hallway seems to help him calm down. I met with him in his room 125. REVIEW OF SYSTEMS: No CV, , pulmonary, eye, ENT system symptoms on review. Reliability poor. MENTAL STATUS EXAM: Oriented to himself. Insight, judgment, recent and remote memory, attention, concentration, fund of knowledge poor, consistent with his diagnosis. IMPRESSION: Major neurocognitive disorder, Alzheimer, vascular with delusion, depression, behavioral disturbance; anxiety disorder, unspecified; impulse control disorder, unspecified. Rest unchanged. PLAN: No change from a psychiatric standpoint. Once he is medically stable, we may consider having him return to the [facility] for psychiatric stabilization before looking for placement options. MAN Leyla SHORT MD DR: RICHARD/ruiz JOB#: [id number] / [id number]
[2019-01-28] MEDS ORDERED: CHOLECALCIFEROL (VITAMIN D3) 50,000 UNIT CAPSULE PO SCH (09:00)
== END 2019-01-25 11:35 | DRG 189 ==
LOC: 1 SOUTH 06:45
PROVIDERS: ADMIT Internal Medicine; ATTEND Internal Medicine
DX: J96.21 Acute and chronic respiratory failure with hypoxia (principal); N17.9 Acute kidney failure, unspecified; N39.0 Urinary tract infection, site not specified; F01.51 Vascular dementia, unspecified severity, with behavioral disturbance; F02.81 Dementia in other diseases classified elsewhere, unspecified severity, with behavioral disturbance; D50.9 Iron deficiency anemia, unspecified; E03.9 Hypothyroidism, unspecified; F32.9 Major depressive disorder, single episode, unspecified; F41.9 Anxiety disorder, unspecified; F42.9 Obsessive-compulsive disorder, unspecified; F63.9 Impulse disorder, unspecified; G30.9 Alzheimer's disease, unspecified; G47.33 Obstructive sleep apnea (adult) (pediatric); H35.3190 Nonexudative age-related macular degeneration, unspecified eye, stage unspecified; I12.9 Hypertensive chronic kidney disease with stage 1 through stage 4 chronic kidney disease, or unspecified chronic kidney disease; I25.10 Atherosclerotic heart disease of native coronary artery without angina pectoris; I44.4 Left anterior fascicular block; J31.0 Chronic rhinitis; J44.9 Chronic obstructive pulmonary disease, unspecified; K21.9 Gastro-esophageal reflux disease without esophagitis; M15.9 Polyosteoarthritis, unspecified; M85.80 Other specified disorders of bone density and structure, unspecified site; N18.9 Chronic kidney disease, unspecified; Z96.1 Presence of intraocular lens; G89.29 Other chronic pain; M54.9 Dorsalgia, unspecified; N40.0 Benign prostatic hyperplasia without lower urinary tract symptoms; N52.9 Male erectile dysfunction, unspecified; Z86.010 Personal history of colon polyps; Z87.891 Personal history of nicotine dependence; Z98.41 Cataract extraction status, right eye; Z98.42 Cataract extraction status, left eye; Z88.8 Allergy status to other drugs, medicaments and biological substances
CPT/HCPCS: 36415; 36600; 71045; 71046; 80048; 80053; 82803; 83605; 83880; 85025; 85027; 87641; 94640; J0696; J1630; J7613; J7620; J7626; J7030

== ENCOUNTER 2019-01-25 12:12 | Inpatient (IN) | payer MEDICARE ==
[~2019-01-25] VITALS: Ht 157.5 cm; Wt 68.2 kg
[~2019-01-25 12:12] MED LIST changes: +HALO5TAB IM
[2019-01-25] MEDS ORDERED: MAGNESIUM HYDROXIDE 2,400 MG/30 ML ORAL.SUSP. PO PRN (12:30)
[2019-01-25] MEDS ORDERED: METHYL SALICYLATE/MENTHOL TOPICAL OINTMENT 29GM TUBE. TP PRN (12:30)
[2019-01-25] MEDS ORDERED: ACETAMINOPHEN 325 MG TABLET PO PRN (12:30)
[2019-01-25] MEDS ORDERED: MAG HYDROX/AL HYDROX/SIMETH 30 ML ORAL.SUSP PO PRN (12:30)
[2019-01-25 12:40] VITALS: BP 106/67
[2019-01-25] MEDS ORDERED: [UNRECOGNIZED DRUG - OTHER] TP PRN (13:30)
[2019-01-25] MEDS ORDERED: NON FORMULARY ITEM (Magnesium Hydroxide (Milk Of Magnesia) 2,400 MG) PO PRN (13:30)
[2019-01-25] MEDS ORDERED: NON FORMULARY ITEM (Mag Hydrox/Al Hydrox/Simeth (Advanced Antacid Liquid) 15 ML) PO PRN (13:30)
[2019-01-25] MEDS ORDERED: HALOPERIDOL LACT 5 MG/ML VIAL. IM PRN (13:45)
[2019-01-25 15:56] VITALS: BP 111/80
[2019-01-25] MEDS: IPRATRPIUM/ALBUTEROL 0.5/2.5MG 3 ML NEBU. NEB SCH ×2 (16:06→20:20)
[2019-01-25] MEDS: DIVALPROEX 125 MG CAP.SPRINK PO SCH (19:46)
[2019-01-25] MEDS: traZODone 150 MG TABLET. PO SCH (19:46)
[2019-01-25] MEDS: LACTOBACILLUS RHAMNOSUS GG 1 CAPSULE. PO SCH (19:46)
[2019-01-25] MEDS ORDERED: NON FORMULARY ITEM (Budesonide (Pulmicort) 0.5 MG) NEB SCH (20:00)
[2019-01-25] MEDS: BUDESONIDE 0.5 MG/2 ML NEBU NEB SCH (20:23)
[2019-01-25] MEDS: NYSTATIN/TRIAMCIN TOPICAL CREAM 15GM TUBE. TP SCH (21:00)
--- NOTE | 2019-01-25 21:55 | PDOC ---
Exam Note: Tony Note: Please also refer to the separate dictated note~for this date of service dictated separately. Discussed the patient with Nursing staff reviewed the chart.~Reviewed interim history and current functioning. Reviewed vital signs,~Labs/ Radiology~and current medications noted below. Continue current treatment with the changes noted in the dictated addendum note Assessment: Vital Signs: Vital Signs Date Time Temp Pulse Resp B/P (MAP) Pulse Ox O2 Delivery O2 Flow Rate FiO2 01/25/19 20:26 Room Air 01/25/19 15:56 98.1 91 16 111/80 (90) 91 Current Medications: Meds: Current Medications Acetaminophen (Tylenol) 650 mg PRN Q6HRS PRN PO PAIN / TEMP; Start 01/25/19 at 12:30; Stop 01/25/19 at 13:54; Status DC Multi-Ingredient Ointment (Analgesic [place]) 1 amy PRN QID PRN TP MUSCLE PAIN; Start 01/25/19 at 12:30 Al Hydroxide/Mg Hydroxide (Mylanta Plus Xs) 15 ml PRN AFTMEALHC PRN PO DYSPEPSIA; Start 01/25/19 at 12:30 Magnesium Hydroxide (Milk Of Magnesia) 2,400 mg PRN QHS PRN PO CONSTIPATION; Start 01/25/19 at 12:30 Acetaminophen (Tylenol) 650 mg PRN Q6HRS PRN PO PAIN / TEMP; Start 01/25/19 at 13:30 Albuterol Sulfate (Ventolin) 2.5 mg PRN Q6HRS PRN INH SHORTNESS OF BREATH; Start 01/25/19 at 13:30 Guaifenesin (Guaifenesin) 200 mg DAILY PO ; Start 01/26/19 at 09:00 Albuterol/ Ipratropium (Duoneb) 3 ml QID NEB Last administered on 01/25/19at 20:20; Start 01/25/19 at 17:00 Levothyroxine Sodium (Synthroid) 137 mcg DAILY06 PO ; Start 01/26/19 at 06:00 Olanzapine (ZyPREXA ZYDIS) 2.5 mg PRN Q4HRS PRN PO ANXIETY / AGITATION; Start 01/25/19 at 13:30 Rivastigmine (Exelon 13.3mg) 1 patch DAILY TD ; Start 01/26/19 at 09:00 Sertraline HCl (Zoloft) 50 mg DAILY PO ; Start 01/26/19 at 09:00 Tamsulosin HCl (Flomax) 0.4 mg DAILY PO ; Start 01/26/19 at 09:00 Non-Formulary Medication (Budesonide (Pulmicort)) 0.5 mg RTBID NEB ; Start 01/25/19 at 20:00; Stop 01/25/19 at 20:00; Status DC Calcium/Vitamin D (Oscal D 500mg/ 200uts) 1 tab DAILY PO ; Start 01/26/19 at 09:00 Vitamin D (Vitamin D3) 50,000 unit WEEKLY PO ; Start 01/28/19 at 09:00 Divalproex Sodium (Depakote Sprinkles) 250 mg BID PO Last administered on 01/25/19at 19:46; Start 01/25/19 at 21:00 Ferrous Sulfate (Feosol) 325 mg DAILYWBKFT PO ; Start 01/26/19 at 08:00 Glucosamine Sulfate (Glucosamine) 1,000 mg DAILY PO ; Start 01/26/19 at 09:00 Haloperidol Lactate (Haldol) 5 mg PRN Q4HRS PRN IM ANXIETY/AGITATION; Start 01/25/19 at 13:45 Lactobacillus Rhamnosus (Culturelle) 1 cap BID PO Last administered on 01/25/19at 19:46; Start 01/25/19 at 21:00 Non-Formulary Medication (Mag Hydrox/Al Hydrox/Simeth (Advanced Antacid Liquid)) 15 ml PRN AFTMEALHC PRN PO DYSPEPSIA; Start 01/25/19 at 13:30; Stop 01/25/19 at 13:47; Status DC Non-Formulary Medication (Magnesium Hydroxide (Milk Of Magnesia)) 2,400 mg PRN QHS PRN PO CONSTIPATION; Start 01/25/19 at 13:30; Stop 01/25/19 at 13:47; Status DC Non-Formulary Medication (Methyl Salicylate/Menth/ Camph (Pain-Relief Cream)) 1 amy PRN BID PRN TP foot pain; Start 01/25/19 at 13:30; Stop 01/25/19 at 13:47; Status DC Multivitamins/ Calcium (Thera-M Plus) 1 tab DAILY PO ; Start 5/23/19 at 09:00 Nystatin/ Triamcinolone Acetonide (Mycolog Ii) 1 amy BID TP ; Start 01/25/19 at 21:00 Olanzapine (ZyPREXA ZYDIS) 10 mg QHS PO Last administered on 01/25/19at 19:50; Start 01/25/19 at 21:00 Trazodone HCl (Desyrel) 150 mg QHS PO Last administered on 01/25/19at 19:46; Start 01/25/19 at 21:00 Budesonide (Pulmicort) 0.5 mg RTBID NEB Last administered on 01/25/19at 20:23; Start 01/25/19 at 20:00 Active Scripts Active Reported Haloperidol 5 Mg Tablet 5 Mg IM PRN Q4HRS PRN Zyprexa Zydis (Olanzapine) 10 Mg Tab.rapdis 10 Mg PO QHS Zyprexa Zydis (Olanzapine) 5 Mg Tab.rapdis 2.5 Mg PO PRN Q4HRS PRN Milk Of Magnesia (Magnesium Hydroxide) 2,400 Mg/10 Ml Oral.susp 2,400 Mg PO PRN QHS PRN Advanced Antacid Liquid (Mag Hydrox/Al Hydrox/Simeth) 355 Ml Oral.susp 15 Ml PO PRN AFTMEALHC PRN Culturelle (Lactobacillus Rhamnosus Gg) 1 Each Capsule 1 Each PO BID Duoneb 0.5-3(2.5) Mg/3 Ml (Albuterol/Ipratropium) 3 Ml Ampul.neb 3 Ml NEB QID Depakote Sprinkle (Divalproex Sodium) 125 Mg Cap.sprink 250 Mg PO BID Vitamin D3 (Cholecalciferol (Vitamin D3)) 5,000 Unit Tablet 50,000 Unit PO WEEKLY Calcium 500 + Vit D 400 Tablet (Calcium Carbonate/Vitamin D3) 1 Each Tablet 1 E ach PO DAILY Pulmicort (Budesonide) 0.5 Mg/2 Ml Ampul.neb 0.5 Mg NEB RTBID Tylenol (Acetaminophen) 325 Mg Tablet 650 Mg PO PRN Q6HRS PRN Multivitamins (Multivitamin) 1 Each Tablet 1 Each PO DAILY Nystatin-Triamcinolone Cream (Nystatin/Triamcin) 15 Gm Cream..g. 1 Amy TP BID Guaifenesin 200 Mg Tablet 200 Mg PO DAILY Glucosamine (Glucosamine Sulfate 2KCL) 1,000 Mg Tablet 1,000 Mg PO DAILY Flomax (Tamsulosin Hcl) 0.4 Mg Cap.er.24h 0.4 Mg PO DAILY Zoloft (Sertraline Hcl) 50 Mg Tablet 50 Mg PO DAILY EXELON 13.3mg/24hr (Rivastigmine) 1 Each Patch.td24 1 Patch TD DAILY Pain-Relief Cream (Methyl Salicylate/Menth/Camph) 113.3 Gm Cream..g. 1 Amy TP PRN BID PRN Levothyroxine Sodium 137 Mcg Tablet 137 Mcg PO DAILYAC Ferrous Gluconate 324 Mg Tablet 324 Mg PO DAILY Proair Hfa Inhaler (Albuterol Sulfate) 8.5 Gm Hfa.aer.ad 1 Puff INH PRN Q6HRS PRN Trazodone Hcl 50 Mg Tablet 150 Mg PO QHS I have reviewed the current psychotropics carefully including drug interactions. Risk benefit ratio favors no change other than as noted in my dictated progress note. Diagnosis: Problems: (1) Anxiety disorder (2) Impulse control disorder (3) Dementia, vascular, with depression (4) Dementia, vascular, with delusions (5) Dementia in Alzheimer's disease with depression (6) Dementia in Alzheimer's disease with delusions (7) Dementia with behavioral disturbance MYLES SHORT MD January 25, 2019 21:55
[2019-01-26] MEDS: LEVOTHYROXINE 137 MCG TABLET PO SCH (04:53)
[2019-01-26] MEDS: IPRATRPIUM/ALBUTEROL 0.5/2.5MG 3 ML NEBU. NEB SCH ×4 (05:23→20:48)
[2019-01-26] MEDS: BUDESONIDE 0.5 MG/2 ML NEBU NEB SCH ×2 (05:23→20:48)
[2019-01-26 05:45] VITALS: BP 144/86
--- NOTE | 2019-01-26 07:48 | HP ---
ADMIT DATE: 01/25/2019 This is a late entry, date of service 01/25/2019, covers elements not covered in my initial note of 01/25/2019. SUBJECTIVE: I met with the patient evening of 01/25/2019. I previously discussed with Clare Zaldivar, transplant coordinator and nursing staff after the patient was referred back to us for admission to the [facility] after he was medically stabilized by Dr. Ceja and continued to have significantly aggressive behaviors with staff on the medical/surgical floor. He was delusional, paranoid, was threatening to kill staff. He raised his fist to the staff. He had marked insomnia, worsening confusion, attempts to elope, unmanageable, despite having being stabilized for his respiratory distress, which is what took him to [address] [place] [address] Medical/Surgical floor from my unit previously. The patient is readmitted for psychiatric stabilization and possible structured nursing facility placement since he is unable to function back at home due to the significant level of cognitive decline, delusions, paranoia and aggression. CHIEF COMPLAINT: "I don't know." The patient responded after I asked him when he came back to us. He was fairly oblivious of where he was, anxious, paranoid as I met with him evening of 01/25/2019. HISTORY OF PRESENT ILLNESS: The patient has a history of dementia, Alzheimer's vascular type. He was initially referred to us via the Emergency Room from home due to unmanageable behaviors, delusions, aggression. He developed respiratory distress, was transferred to [facility] where I followed him for a psychiatric consult and he is back to us as noted above. No active suicidal or homicidal ideation, but his behaviors towards others are being quite dangerous as noted. No clear history of bipolar disorder. PAST PSYCHIATRIC HISTORY: As above. MEDICAL HISTORY: Positive for acute hypoxic respiratory failure. Hypoxia. Osteoarthritis, COPD, ED, hypertension, sleep apnea, coronary artery disease, emphysema. ACCU-CHEKS: None. DIET: Regular diet and liquids. Takes medications whole. Ambulates up ad yovanny. UA was positive and he was on Rocephin until 01/25/2019. CODE STATUS: DNR. ALLERGIES: GALANTAMINE. CURRENT PSYCHOTROPICS: Depakote 250 b.i.d., Zyprexa p.r.n., Exelon patch 13.3 mg a day, Zoloft 50 mg a day, trazodone 150 mg at bedtime. FAMILY HISTORY: Noncontributory. SOCIAL HISTORY: No history of alcohol, drug abuse, physical, sexual, or elder abuse. He is not known to be a perpetrator. REACTION TO HOSPITALIZATION: The patient oblivious of this. ASSETS: Supportive family. MENTAL STATUS EXAMINATION: The patient was seen individually evening of 01/25/2019. He is oriented to himself, anxious, restless, paranoid. Insight, judgment, recent and remote memory, attention, concentration, fund of knowledge poor, consistent with his diagnosis. He is very distractable. LABORATORY DATA: Reviewed. IMPRESSION: Major neurocognitive disorder, Alzheimer, vascular with delusion, depression, behavioral disturbance; anxiety disorder, unspecified; impulse control disorder, unspecified; status post urinary tract infection; status post respiratory failure. Rest diagnoses as above. PLAN: Readmit to geropsychiatry unit at [facility]. I will see the patient daily individually from a psychiatric standpoint. Medical followup with Dr. Ceja. Continue the patient on his current psychotropics. Discontinue the IM Haldol p.r.n. Check valproic acid level, adjust Depakote to reach therapeutic level. May need to increase Zoloft both for his mood and anxiety symptoms and obsessiveness. He will need placement as noted. ESTIMATED LENGTH OF STAY: 7-10 days. MAN Leyla SHORT MD DR: RICHARD/ruiz JOB#: [id number] / [id number]
[2019-01-26] MEDS: DIVALPROEX 125 MG CAP.SPRINK PO SCH ×2 (08:10→20:04)
[2019-01-26] MEDS: LACTOBACILLUS RHAMNOSUS GG 1 CAPSULE. PO SCH ×2 (08:10→20:04)
[2019-01-26] MEDS: MULTIVITAMIN with MINERAL TABLET. PO SCH (08:14)
[2019-01-26] MEDS: TAMSULOSIN 0.4 MG CAP.ER.24H. PO SCH (08:14)
[2019-01-26] MEDS: GLUCOSAMINE 500 MG CAPSULE PO SCH (08:14)
[2019-01-26] MEDS: RIVASTIGMINE 13.3MG PATCH. TD SCH (08:14)
[2019-01-26] MEDS: CALCIUM CARB/VIT D3 500/200 TABLET PO SCH (08:14)
[2019-01-26] MEDS: FERROUS SULFATE 325 MG TABLET. PO SCH (08:14)
[2019-01-26] MEDS: SERTRALINE 50 MG TABLET. PO SCH (08:15)
[2019-01-26] MEDS: NYSTATIN/TRIAMCIN TOPICAL CREAM 15GM TUBE. TP SCH ×2 (08:15→20:59)
[2019-01-26 15:30] VITALS: BP 121/84
[2019-01-26] MEDS: MIRTAZAPINE 7.5 MG TABLET. PO SCH (20:04)
[2019-01-26] MEDS: traZODone 150 MG TABLET. PO SCH (20:04)
--- NOTE | 2019-01-26 22:23 | PDOC ---
Exam Note: Tony Note: Please also refer to the separate dictated note~for this date of service dictated separately.~Patient seen individually. Discussed the patient with Nursing staff reviewed the chart.~Reviewed interim history and current functioning. Reviewed vital signs,~Labs/ Radiology~and current medications noted below. Continue current treatment with the changes noted in the dictated addendum note Assessment: Vital Signs: Vital Signs Date Time Temp Pulse Resp B/P (MAP) Pulse Ox O2 Delivery O2 Flow Rate FiO2 01/26/19 20:54 Room Air 01/26/19 15:30 99.0 98 18 121/84 (96) 92 01/26/19 05:45 2.0 I&O Intake and Output 01/26/19 06:59 Intake Total 720 ml Balance 720 ml Intake Oral 720 ml # Voids 1 Current Medications: Meds: Current Medications Acetaminophen (Tylenol) 650 mg PRN Q6HRS PRN PO PAIN / TEMP; Start 01/25/19 at 12:30; Stop 01/25/19 at 13:54; Status DC Multi-Ingredient Ointment (Analgesic New Era) 1 amy PRN QID PRN TP MUSCLE PAIN; Start 01/25/19 at 12:30 Al Hydroxide/Mg Hydroxide (Mylanta Plus Xs) 15 ml PRN AFTMEALHC PRN PO DYSPEPSIA; Start 01/25/19 at 12:30 Magnesium Hydroxide (Milk Of Magnesia) 2,400 mg PRN QHS PRN PO CONSTIPATION; Start 01/25/19 at 12:30 Acetaminophen (Tylenol) 650 mg PRN Q6HRS PRN PO PAIN / TEMP; Start 01/25/19 at 13:30 Albuterol Sulfate (Ventolin) 2.5 mg PRN Q6HRS PRN INH SHORTNESS OF BREATH; Start 01/25/19 at 13:30 Guaifenesin (Guaifenesin) 200 mg DAILY PO Last administered on 01/26/19at 08:14; Start 01/26/19 at 09:00 Albuterol/ Ipratropium (Duoneb) 3 ml QID NEB Last administered on 01/26/19at 20:48; Start 01/25/19 at 17:00 Levothyroxine Sodium (Synthroid) 137 mcg DAILY06 PO Last administered on 01/26/19at 04:53; Start 01/26/19 at 06:00 Olanzapine (ZyPREXA ZYDIS) 2.5 mg PRN Q4HRS PRN PO ANXIETY / AGITATION; Start 01/25/19 at 13:30 Rivastigmine (Exelon 13.3mg) 1 patch DAILY TD Last administered on 01/26/19 08:14; Start 01/26/19 at 09:00 Sertraline HCl (Zoloft) 50 mg DAILY PO Last administered on 01/26/19 08:15; Start 01/26/19 at 09:00 Tamsulosin HCl (Flomax) 0.4 mg DAILY PO Last administered on 01/26/19 08:14; Start 01/26/19 at 09:00 Non-Formulary Medication (Budesonide (Pulmicort)) 0.5 mg RTBID NEB ; Start 01/25/19 at 20:00; Stop 01/25/19 at 20:00; Status DC Calcium/Vitamin D (Oscal D 500mg/ 200uts) 1 tab DAILY PO Last administered on 01/26/19at 08:14; Start 01/26/19 at 09:00 Vitamin D (Vitamin D3) 50,000 unit WEEKLY PO ; Start 01/28/19 at 09:00 Divalproex Sodium (Depakote Sprinkles) 250 mg BID PO Last administered on 01/26/19at 20:04; Start 01/25/19 at 21:00 Ferrous Sulfate (Feosol) 325 mg DAILYWBKFT PO Last administered on 01/26/19at 08:14; Start 01/26/19 at 08:00 Glucosamine Sulfate (Glucosamine) 1,000 mg DAILY PO Last administered on 01/26/19at 08:14; Start 01/26/19 at 09:00 Haloperidol Lactate (Haldol) 5 mg PRN Q4HRS PRN IM ANXIETY/AGITATION; Start 01/25/19 at 13:45 Lactobacillus Rhamnosus (Culturelle) 1 cap BID PO Last administered on 01/26/19at 20:04; Start 01/25/19 at 21:00 Non-Formulary Medication (Mag Hydrox/Al Hydrox/Simeth (Advanced Antacid Liquid)) 15 ml PRN AFTMEALHC PRN PO DYSPEPSIA; Start 01/25/19 at 13:30; Stop 01/25/19 at 13:47; Status DC Non-Formulary Medication (Magnesium Hydroxide (Milk Of Magnesia)) 2,400 mg PRN QHS PRN PO CONSTIPATION; Start 01/25/19 at 13:30; Stop 01/25/19 at 13:47; Status DC Non-Formulary Medication (Methyl Salicylate/Menth/ Camph (Pain-Relief Cream)) 1 amy PRN BID PRN TP foot pain; Start 01/25/19 at 13:30; Stop 01/25/19 at 13:47; Status DC Multivitamins/ Calcium (Thera-M Plus) 1 tab DAILY PO Last administered on 01/26/19 08:14; Start 01/26/19 at 09:00 Nystatin/ Triamcinolone Acetonide (Mycolog Ii) 1 amy BID TP Last administered on 01/26/19at 08:15; Start 01/25/19 at 21:00 Olanzapine (ZyPREXA ZYDIS) 10 mg QHS PO Last administered on 01/26/19at 20:03; Start 01/25/19 at 21:00 Trazodone HCl (Desyrel) 150 mg QHS PO Last administered on 01/26/19at 20:04; Start 01/25/19 at 21:00 Budesonide (Pulmicort) 0.5 mg RTBID NEB Last administered on 01/26/19at 20:48; Start 01/25/19 at 20:00 Mirtazapine (Remeron) 7.5 mg QHS PO Last administered on 01/26/19at 20:04; St art 01/26/19 at 21:00 Active Scripts Active Reported Haloperidol 5 Mg Tablet 5 Mg IM PRN Q4HRS PRN Zyprexa Zydis (Olanzapine) 10 Mg Tab.rapdis 10 Mg PO QHS Zyprexa Zydis (Olanzapine) 5 Mg Tab.rapdis 2.5 Mg PO PRN Q4HRS PRN Milk Of Magnesia (Magnesium Hydroxide) 2,400 Mg/10 Ml Oral.susp 2,400 Mg PO PRN QHS PRN Advanced Antacid Liquid (Mag Hydrox/Al Hydrox/Simeth) 355 Ml Oral.susp 15 Ml PO PRN AFTMEALHC PRN Culturelle (Lactobacillus Rhamnosus Gg) 1 Each Capsule 1 Each PO BID Duoneb 0.5-3(2.5) Mg/3 Ml (Albuterol/Ipratropium) 3 Ml Ampul.neb 3 Ml NEB QID Depakote Sprinkle (Divalproex Sodium) 125 Mg Cap.sprink 250 Mg PO BID Vitamin D3 (Cholecalciferol (Vitamin D3)) 5,000 Unit Tablet 50,000 Unit PO WEEKLY Calcium 500 + Vit D 400 Tablet (Calcium Carbonate/Vitamin D3) 1 Each Tablet 1 Each PO DAILY Pulmicort (Budesonide) 0.5 Mg/2 Ml Ampul.neb 0.5 Mg NEB RTBID Tylenol (Acetaminophen) 325 Mg Tablet 650 Mg PO PRN Q6HRS PRN Multivitamins (Multivitamin) 1 Each Tablet 1 Each PO DAILY Nystatin-Triamcinolone Cream (Nystatin/Triamcin) 15 Gm Cream..g. 1 Aym TP BID Guaifenesin 200 Mg Tablet 200 Mg PO DAILY Glucosamine (Glucosamine Sulfate 2KCL) 1,000 Mg Tablet 1,000 Mg PO DAILY Flomax (Tamsulosin Hcl) 0.4 Mg Cap.er.24h 0.4 Mg PO DAILY Zoloft (Sertraline Hcl) 50 Mg Tablet 50 Mg PO DAILY EXELON 13.3mg/24hr (Rivastigmine) 1 Each Patch.td24 1 Patch TD DAILY Pain-Relief Cream (Methyl Salicylate/Menth/Camph) 113.3 Gm Cream..g. 1 Amy TP PRN BID PRN Levothyroxine Sodium 137 Mcg Tablet 137 Mcg PO DAILYAC Ferrous Gluconate 324 Mg Tablet 324 Mg PO DAILY Proair Hfa Inhaler (Albuterol Sulfate) 8.5 Gm Hfa.aer.ad 1 Puff INH PRN Q6HRS PRN Trazodone Hcl 50 Mg Tablet 150 Mg PO QHS I have reviewed the current psychotropics carefully including drug interactions. Risk benefit ratio favors no change other than as noted in my dictated progress note. Diagnosis: Problems: (1) Anxiety disorder (2) Impulse control disorder (3) Dementia, vascular, with depression (4) Dementia, vascular, with delusions (5) Dementia in Alzheimer's disease with depression (6) Dementia in Alzheimer's disease with delusions (7) Dementia with behavioral disturbance MYLES SHORT MD January 26, 2019 22:23
[2019-01-27] MEDS: LEVOTHYROXINE 137 MCG TABLET PO SCH (05:00)
[2019-01-27] MEDS: BUDESONIDE 0.5 MG/2 ML NEBU NEB SCH ×2 (05:23→20:53)
[2019-01-27] MEDS: IPRATRPIUM/ALBUTEROL 0.5/2.5MG 3 ML NEBU. NEB SCH ×4 (05:23→20:53)
[2019-01-27 05:43] VITALS: BP 152/94
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
[2019-01-27] MEDS: RIVASTIGMINE 13.3MG PATCH. TD SCH (08:15)
[2019-01-27] MEDS: LACTOBACILLUS RHAMNOSUS GG 1 CAPSULE. PO SCH ×2 (08:15→19:33)
[2019-01-27] MEDS: GLUCOSAMINE 500 MG CAPSULE PO SCH (08:15)
[2019-01-27] MEDS: SERTRALINE 50 MG TABLET. PO SCH (08:15)
[2019-01-27] MEDS: FERROUS SULFATE 325 MG TABLET. PO SCH (08:15)
[2019-01-27] MEDS: TAMSULOSIN 0.4 MG CAP.ER.24H. PO SCH (08:15)
[2019-01-27] MEDS: CALCIUM CARB/VIT D3 500/200 TABLET PO SCH (08:15)
[2019-01-27] MEDS: DIVALPROEX 125 MG CAP.SPRINK PO SCH ×2 (08:16→19:33)
[2019-01-27] MEDS: MULTIVITAMIN with MINERAL TABLET. PO SCH (08:16)
[2019-01-27] MEDS: NYSTATIN/TRIAMCIN TOPICAL CREAM 15GM TUBE. TP SCH (08:16)
[2019-01-27 15:50] VITALS: BP 108/72
[2019-01-27] MEDS: traZODone 150 MG TABLET. PO SCH (19:33)
[2019-01-27] MEDS: MIRTAZAPINE 7.5 MG TABLET. PO SCH (19:33)
--- NOTE | 2019-01-27 20:03 | PN ---
DATE: 01/26/2019 PSYCHIATRIC PROGRESS NOTE This late entry 01/26/2019 covers elements not covered in my initial note. SUBJECTIVE: I met with the patient in the evening of 01/26/2019. The patient slept 2-1/2 hours previous night. We reviewed the patient's history at some length during the treatment team meeting. The patient's , Jeannette, and daughter were to attend, but unavailable. He slept 2-1/2 hours previous night. Appetite 100%, wandering, completely confused, cooperative, less agitated, less exit seeking. REVIEW OF SYSTEMS: No CV, , pulmonary, eye, ENT system symptoms on review. Reliability poor. MENTAL STATUS EXAM: Oriented to himself. Insight, judgment, recent and remote memory, attention, concentration, fund of knowledge poor, consistent with his diagnosis mentioned in my initial note. IMPRESSION: Major neurocognitive disorder, Alzheimer, vascular with delusion, depression, behavioral disturbance; anxiety disorder, unspecified; impulse control disorder, unspecified. Rest unchanged. PLAN: Start Remeron 7.5 mg p.o. at bedtime. Rest unchanged from initial note for now. MAN Leyla SHORT MD DR: RICHARD/ruiz JOB#: [id number] / [id number]
[2019-01-27] MEDS ORDERED: NYSTATIN/TRIAMCIN TOPICAL CREAM 15GM TUBE. TP PRN (21:00)
--- NOTE | 2019-01-27 22:33 | PDOC ---
Exam Note: Tony Note: Please also refer to the separate dictated note~for this date of service dictated separately.~Patient seen individually. Discussed the patient with Nursing staff reviewed the chart.~Reviewed interim history and current functioning. Reviewed vital signs,~Labs/ Radiology~and current medications noted below. Continue current treatment with the changes noted in the dictated addendum note Assessment: Vital Signs: Vital Signs Date Time Temp Pulse Resp B/P (MAP) Pulse Ox O2 Delivery O2 Flow Rate FiO2 01/27/19 20:59 Room Air 01/27/19 15:50 97.6 84 20 108/72 (84) 95 01/26/19 05:45 2.0 I&O Intake and Output 01/27/19 06:59 Intake Total 1080 ml Balance 1080 ml Intake Oral 1080 ml # Voids 1 # Bowel Movements 1 Current Medications: Meds: Current Medications Acetaminophen (Tylenol) 650 mg PRN Q6HRS PRN PO PAIN / TEMP; Start 01/25/19 at 12:30; Stop 01/25/19 at 13:54; Status DC Multi-Ingredient Ointment (Analgesic Medora) 1 amy PRN QID PRN TP MUSCLE PAIN; Start 01/25/19 at 12:30 Al Hydroxide/Mg Hydroxide (Mylanta Plus Xs) 15 ml PRN AFTMEALHC PRN PO DYSPEPSIA; Start 01/25/19 at 12:30 Magnesium Hydroxide (Milk Of Magnesia) 2,400 mg PRN QHS PRN PO CONSTIPATION; Start 01/25/19 at 12:30 Acetaminophen (Tylenol) 650 mg PRN Q6HRS PRN PO PAIN / TEMP; Start 01/25/19 at 13:30 Albuterol Sulfate (Ventolin) 2.5 mg PRN Q6HRS PRN INH SHORTNESS OF BREATH; Start 01/25/19 at 13:30 Guaifenesin (Guaifenesin) 200 mg DAILY PO Last administered on 01/27/19at 08:15; Start 01/26/19 at 09:00 Albuterol/ Ipratropium (Duoneb) 3 ml QID NEB Last administered on 01/27/19at 20:53; Start 01/25/19 at 17:00 Levothyroxine Sodium (Synthroid) 137 mcg DAILY06 PO Last administered on 01/05 05:00; Start 01/26/19 at 06:00 Olanzapine (ZyPREXA ZYDIS) 2.5 mg PRN Q4HRS PRN PO ANXIETY / AGITATION; Start 01/25/19 at 13:30 Rivastigmine (Exelon 13.3mg) 1 patch DAILY TD Last administered on 01/27/19 08:15; Start 01/26/19 at 09:00 Sertraline HCl (Zoloft) 50 mg DAILY PO Last administered on 01/27/19 08:15; Start 01/26/19 at 09:00 Tamsulosin HCl (Flomax) 0.4 mg DAILY PO Last administered on 01/27/19 08:15; Start 01/26/19 at 09:00 Non-Formulary Medication (Budesonide (Pulmicort)) 0.5 mg RTBID NEB ; Start 01/25/19 at 20:00; Stop 01/25/19 at 20:00; Status DC Calcium/Vitamin D (Oscal D 500mg/ 200uts) 1 tab DAILY PO Last administered on 01/27/19 08:15; Start 01/26/19 at 09:00 Vitamin D (Vitamin D3) 50,000 unit WEEKLY PO ; Start 01/28/19 at 09:00 Divalproex Sodium (Depakote Sprinkles) 250 mg BID PO Last administered on 01/27/19 19:33; Start 01/25/19 at 21:00 Ferrous Sulfate (Feosol) 325 mg DAILYWBKFT PO Last administered on 01/27/19 08:15; Start 01/26/19 at 08:00 Glucosamine Sulfate (Glucosamine) 1,000 mg DAILY PO Last administered on 01/27/19 08:15; Start 01/26/19 at 09:00 Haloperidol Lactate (Haldol) 5 mg PRN Q4HRS PRN IM ANXIETY/AGITATION; Start 01/25/19 at 13:45 Lactobacillus Rhamnosus (Culturelle) 1 cap BID PO Last administered on 01/27 19:33; Start 01/25/19 at 21:00 Non-Formulary Medication (Mag Hydrox/Al Hydrox/Simeth (Advanced Antacid Liquid)) 15 ml PRN AFTMEALHC PRN PO DYSPEPSIA; Start 01/25/19 at 13:30; Stop 01/25/19 at 13:47; Status DC Non-Formulary Medication (Magnesium Hydroxide (Milk Of Magnesia)) 2,400 mg PRN QHS PRN PO CONSTIPATION; Start 01/25/19 at 13:30; Stop 01/25/19 at 13:47; Status DC Non-Formulary Medication (Methyl Salicylate/Menth/ Camph (Pain-Relief Cream)) 1 amy PRN BID PRN TP foot pain; Start 01/25/19 at 13:30; Stop 01/25/19 at 13:47; Status DC Multivitamins/ Calcium (Thera-M Plus) 1 tab DAILY PO Last administered on 01/27/19 08:16; Start 01/26/19 at 09:00 Nystatin/ Triamcinolone Acetonide (Mycolog Ii) 1 amy BID TP Last administered on 01/27/19 08:16; Start 01/25/19 at 21:00; Stop 01/27/19 at 17:01; Status DC Olanzapine (ZyPREXA ZYDIS) 10 mg QHS PO Last administered on 01/27/19 19:33; Start 01/25/19 at 21:00 Trazodone HCl (Desyrel) 150 mg QHS PO Last administered on 01/27/19 19:33; Start 01/25/19 at 21:00 Budesonide (Pulmicort) 0.5 mg RTBID NEB Last administered on 01/27/19at 20:53; Start 01/25/19 at 20:00 Mirtazapine (Remeron) 7.5 mg QHS PO Last administered on 01/27/19 19:33; Start 01/26/19 at 21:00 Nystatin/ Triamcinolone Acetonide (Mycolog Ii) 1 amy PRN BID PRN TP AFFECTED AREA; Start 01/27/19 at 21:00 Active Scripts Active Reported Haloperidol 5 Mg Tablet 5 Mg IM PRN Q4HRS PRN Zyprexa Zydis (Olanzapine) 10 Mg Tab.rapdis 10 Mg PO QHS Zyprexa Zydis (Olanzapine) 5 Mg Tab.rapdis 2.5 Mg PO PRN Q4HRS PRN Milk Of Magnesia (Magnesium Hydroxide) 2,400 Mg/10 Ml Oral.susp 2,400 Mg PO PRN QHS PRN Advanced Antacid Liquid (Mag Hydrox/Al Hydrox/Simeth) 355 Ml Oral.susp 15 Ml PO PRN AFTMEALHC PRN Culturelle (Lactobacillus Rhamnosus Gg) 1 Each Capsule 1 Each PO BID Duoneb 0.5-3(2.5) Mg/3 Ml (Albuterol/Ipratropium) 3 Ml Ampul.neb 3 Ml NEB QID Depakote Sprinkle (Divalproex Sodium) 125 Mg Cap.sprink 250 Mg PO BID Vitamin D3 (Cholecalciferol (Vitamin D3)) 5,000 Unit Tablet 50,000 Unit PO WEEKLY Calcium 500 + Vit D 400 Tablet (Calcium Carbonate/Vitamin D3) 1 Each Tablet 1 Each PO DAILY Pulmicort (Budesonide) 0.5 Mg/2 Ml Ampul.neb 0.5 Mg NEB RTBID Tylenol (Acetaminophen) 325 Mg Tablet 650 Mg PO PRN Q6HRS PRN Multivitamins (Multivitamin) 1 Each Tablet 1 Each PO DAILY Nystatin-Triamcinolone Cream (Nystatin/Triamcin) 15 Gm Cream..g. 1 Amy TP BID Guaifenesin 200 Mg Tablet 200 Mg PO DAILY Glucosamine (Glucosamine Sulfate 2KCL) 1,000 Mg Tablet 1,000 Mg PO DAILY Flomax (Tamsulosin Hcl) 0.4 Mg Cap.er.24h 0.4 Mg PO DAILY Zoloft (Sertraline Hcl) 50 Mg Tablet 50 Mg PO DAILY EXELON 13.3mg/24hr (Rivastigmine) 1 Each Patch.td24 1 Patch TD DAILY Pain-Relief Cream (Methyl Salicylate/Menth/Camph) 113.3 Gm Cream..g. 1 Amy TP PRN BID PRN Levothyroxine Sodium 137 Mcg Tablet 137 Mcg PO DAILYAC Ferrous Gluconate 324 Mg Tablet 324 Mg PO DAILY Proair Hfa Inhaler (Albuterol Sulfate) 8.5 Gm Hfa.aer.ad 1 Puff INH PRN Q6HRS PRN Trazodone Hcl 50 Mg Tablet 150 Mg PO QHS I have reviewed the current psychotropics carefully including drug interactions. Risk benefit ratio favors no change other than as noted in my dictated progress note. Diagnosis: Problems: (1) Anxiety disorder (2) Impulse control disorder (3) Dementia, vascular, with depression (4) Dementia, vascular, with delusions (5) Dementia in Alzheimer's disease with depression (6) Dementia in Alzheimer's disease with delusions (7) Acute and chronic respiratory failure with hypoxia (8) Obstructive sleep apnea (9) Dementia with behavioral disturbance MYLES SHORT MD January 27, 2019 22:33
[2019-01-28] MEDS: LEVOTHYROXINE 137 MCG TABLET PO SCH (04:54)
[2019-01-28] MEDS: IPRATRPIUM/ALBUTEROL 0.5/2.5MG 3 ML NEBU. NEB SCH ×4 (05:10→20:27)
[2019-01-28] MEDS: BUDESONIDE 0.5 MG/2 ML NEBU NEB SCH ×2 (05:10→20:27)
[2019-01-28 06:11] VITALS: BP 115/76
[2019-01-28] MEDS: GLUCOSAMINE 500 MG CAPSULE PO SCH (08:02)
[2019-01-28] MEDS: CALCIUM CARB/VIT D3 500/200 TABLET PO SCH (08:02)
[2019-01-28] MEDS: SERTRALINE 50 MG TABLET. PO SCH (08:02)
[2019-01-28] MEDS: DIVALPROEX 125 MG CAP.SPRINK PO SCH ×2 (08:02→19:28)
[2019-01-28] MEDS: RIVASTIGMINE 13.3MG PATCH. TD SCH (08:02)
[2019-01-28] MEDS: FERROUS SULFATE 325 MG TABLET. PO SCH (08:03)
[2019-01-28] MEDS: MULTIVITAMIN with MINERAL TABLET. PO SCH (08:03)
[2019-01-28] MEDS: TAMSULOSIN 0.4 MG CAP.ER.24H. PO SCH (08:03)
[2019-01-28] MEDS: LACTOBACILLUS RHAMNOSUS GG 1 CAPSULE. PO SCH ×2 (08:03→19:28)
[2019-01-28] MEDS: CHOLECALCIFEROL (VITAMIN D3) 50,000 UNIT CAPSULE PO SCH (08:05)
[2019-01-28 15:32] VITALS: BP 108/73
[2019-01-28] MEDS: traZODone 150 MG TABLET. PO SCH (19:28)
[2019-01-28] MEDS: MIRTAZAPINE 7.5 MG TABLET. PO SCH (19:28)
--- NOTE | 2019-01-28 22:27 | PDOC ---
Exam Note: Tony Note: Please also refer to the separate dictated note~for this date of service dictated separately.~Patient seen individually. Discussed the patient with Nursing staff reviewed the chart.~Reviewed interim history and current functioning. Reviewed vital signs,~Labs/ Radiology~and current medications noted below. Continue current treatment with the changes noted in the dictated addendum note Assessment: Vital Signs: Vital Signs Date Time Temp Pulse Resp B/P (MAP) Pulse Ox O2 Delivery O2 Flow Rate FiO2 01/28/19 20:30 Room Air 01/28/19 15:32 97.3 97 18 108/73 (85) 92 01/28/19 06:11 3.0 I&O Intake and Output 01/28/19 06:59 Intake Total 1080 ml Balance 1080 ml Intake Oral 1080 ml # Bowel Movements 1 Current Medications: Meds: Current Medications Acetaminophen (Tylenol) 650 mg PRN Q6HRS PRN PO PAIN / TEMP; Start 01/25/19 at 12:30; Stop 01/25/19 at 13:54; Status DC Multi-Ingredient Ointment (Analgesic [place]) 1 amy PRN QID PRN TP MUSCLE PAIN; Start 01/25/19 at 12:30 Al Hydroxide/Mg Hydroxide (Mylanta Plus Xs) 15 ml PRN AFTMEALHC PRN PO DYSPEPSIA; Start 01/25/19 at 12:30 Magnesium Hydroxide (Milk Of Magnesia) 2,400 mg PRN QHS PRN PO CONSTIPATION; Start 01/25/19 at 12:30 Acetaminophen (Tylenol) 650 mg PRN Q6HRS PRN PO PAIN / TEMP; Start 01/25/19 at 13:30 Albuterol Sulfate (Ventolin) 2.5 mg PRN Q6HRS PRN INH SHORTNESS OF BREATH; Start 01/25/19 at 13:30 Guaifenesin (Guaifenesin) 200 mg DAILY PO Last administered on 01/28/19at 08:03; Start 01/26/19 at 09:00 Albuterol/ Ipratropium (Duoneb) 3 ml QID NEB Last administered on 01/28/19at 20:27; Start 01/25/19 at 17:00 Levothyroxine Sodium (Synthroid) 137 mcg DAILY06 PO Last administered on 01/28/19at 04:54; Start 01/26/19 at 06:00 Olanzapine (ZyPREXA ZYDIS) 2.5 mg PRN Q4HRS PRN PO ANXIETY / AGITATION; Start 01/25/19 at 13:30 Rivastigmine (Exelon 13.3mg) 1 patch DAILY TD Last administered on 01/28/19 08:02; Start 01/26/19 at 09:00 Sertraline HCl (Zoloft) 50 mg DAILY PO Last administered on 01/28/19 08:02; Start 01/26/19 at 09:00 Tamsulosin HCl (Flomax) 0.4 mg DAILY PO Last administered on 01/28/19 08:03; Start 01/26/19 at 09:00 Non-Formulary Medication (Budesonide (Pulmicort)) 0.5 mg RTBID NEB ; Start 01/25/19 at 20:00; Stop 01/25/19 at 20:00; Status DC Calcium/Vitamin D (Oscal D 500mg/ 200uts) 1 tab DAILY PO Last administered on 01/28/19 08:02; Start 01/26/19 at 09:00 Vitamin D (Vitamin D3) 50,000 unit WEEKLY PO Last administered on 01/28/19 08:05; Start 01/28/19 at 09:00 Divalproex Sodium (Depakote Sprinkles) 250 mg BID PO Last administered on 01/28/19 19:28; Start 01/25/19 at 21:00 Ferrous Sulfate (Feosol) 325 mg DAILYWBKFT PO Last administered on 01/28/19 08:03; Start 01/26/19 at 08:00 Glucosamine Sulfate (Glucosamine) 1,000 mg DAILY PO Last administered on 01/28/19 08:02; Start 01/26/19 at 09:00 Haloperidol Lactate (Haldol) 5 mg PRN Q4HRS PRN IM ANXIETY/AGITATION; Start 01/25/19 at 13:45 Lactobacillus Rhamnosus (Culturelle) 1 cap BID PO Last administered on 01/28/19 19:28; Start 01/25/19 at 21:00 Non-Formulary Medication (Mag Hydrox/Al Hydrox/Simeth (Advanced Antacid Liquid)) 15 ml PRN AFTMEALHC PRN PO DYSPEPSIA; Start 01/25/19 at 13:30; Stop 01/25/19 at 13:47; Status DC Non-Formulary Medication (Magnesium Hydroxide (Milk Of Magnesia)) 2,400 mg PRN QHS PRN PO CONSTIPATION; Start 01/25/19 at 13:30; Stop 01/25/19 at 13:47; Status DC Non-Formulary Medication (Methyl Salicylate/Menth/ Camph (Pain-Relief Cream)) 1 amy PRN BID PRN TP foot pain; Start 01/25/19 at 13:30; Stop 01/25/19 at 13:47; Status DC Multivitamins/ Calcium (Thera-M Plus) 1 tab DAILY PO Last administered on 01/28/19 08:03; Start 01/26/19 at 09:00 Nystatin/ Triamcinolone Acetonide (Mycolog Ii) 1 amy BID TP Last administered on 01/27/19 08:16; Start 01/25/19 at 21:00; Stop 01/27/19 at 17:01; Status DC Olanzapine (ZyPREXA ZYDIS) 10 mg QHS PO Last administered on 01/28/19 19:28; Start 01/25/19 at 21:00 Trazodone HCl (Desyrel) 150 mg QHS PO Last administered on 01/28/19 19:28; Start 01/25/19 at 21:00 Budesonide (Pulmicort) 0.5 mg RTBID NEB Last administered on 01/28/19at 20:27; Start 01/25/19 at 20:00 Mirtazapine (Remeron) 7.5 mg QHS PO Last administered on 01/28/19 19:28; Start 01/26/19 at 21:00 Nystatin/ Triamcinolone Acetonide (Mycolog Ii) 1 amy PRN BID PRN TP AFFECTED AREA; Start 01/27/19 at 21:00 Active Scripts Active Reported Haloperidol 5 Mg Tablet 5 Mg IM PRN Q4HRS PRN Zyprexa Zydis (Olanzapine) 10 Mg Tab.rapdis 10 Mg PO QHS Zyprexa Zydis (Olanzapine) 5 Mg Tab.rapdis 2.5 Mg PO PRN Q4HRS PRN Milk Of Magnesia (Magnesium Hydroxide) 2,400 Mg/10 Ml Oral.susp 2,400 Mg PO PRN QHS PRN Advanced Antacid Liquid (Mag Hydrox/Al Hydrox/Simeth) 355 Ml Oral.susp 15 Ml PO PRN AFTMEALHC PRN Culturelle (Lactobacillus Rhamnosus Gg) 1 Each Capsule 1 Each PO BID Duoneb 0.5-3(2.5) Mg/3 Ml (Albuterol/Ipratropium) 3 Ml Ampul.neb 3 Ml NEB QID Depakote Sprinkle (Divalproex Sodium) 125 Mg Cap.sprink 250 Mg PO BID Vitamin D3 (Cholecalciferol (Vitamin D3)) 5,000 Unit Tablet 50,000 Unit PO WEEKLY Calcium 500 + Vit D 400 Tablet (Calcium Carbonate/Vitamin D3) 1 Each Tablet 1 Each PO DAILY Pulmicort (Budesonide) 0.5 Mg/2 Ml Ampul.neb 0.5 Mg NEB RTBID Tylenol (Acetaminophen) 325 Mg Tablet 650 Mg PO PRN Q6HRS PRN Multivitamins (Multivitamin) 1 Each Tablet 1 Each PO DAILY Nystatin-Triamcinolone Cream (Nystatin/Triamcin) 15 Gm Cream..g. 1 Amy TP BID Guaifenesin 200 Mg Tablet 200 Mg PO DAILY Glucosamine (Glucosamine Sulfate 2KCL) 1,000 Mg Tablet 1,000 Mg PO DAILY Flomax (Tamsulosin Hcl) 0.4 Mg Cap.er.24h 0.4 Mg PO DAILY Zoloft (Sertraline Hcl) 50 Mg Tablet 50 Mg PO DAILY EXELON 13.3mg/24hr (Rivastigmine) 1 Each Patch.td24 1 Patch TD DAILY Pain-Relief Cream (Methyl Salicylate/Menth/Camph) 113.3 Gm Cream..g. 1 Amy TP PRN BID PRN Levothyroxine Sodium 137 Mcg Tablet 137 Mcg PO DAILYAC Ferrous Gluconate 324 Mg Tablet 324 Mg PO DAILY Proair Hfa Inhaler (Albuterol Sulfate) 8.5 Gm Hfa.aer.ad 1 Puff INH PRN Q6HRS PRN Trazodone Hcl 50 Mg Tablet 150 Mg PO QHS I have reviewed the current psychotropics carefully including drug interactions. Risk benefit ratio favors no change other than as noted in my dictated progress note. Diagnosis: Problems: (1) Anxiety disorder (2) Impulse control disorder (3) Dementia, vascular, with depression (4) Dementia, vascular, with delusions (5) Dementia in Alzheimer's disease with depression (6) Dementia in Alzheimer's disease with delusions (7) Dementia with behavioral disturbance MYLES SHORT MD January 28, 2019 22:27
[2019-01-29] MEDS: LEVOTHYROXINE 137 MCG TABLET PO SCH (05:08)
[2019-01-29] MEDS: ACETAMINOPHEN 325 MG TABLET PO PRN (05:08)
[2019-01-29] MEDS: IPRATRPIUM/ALBUTEROL 0.5/2.5MG 3 ML NEBU. NEB SCH ×4 (05:39→20:09)
[2019-01-29 06:47] VITALS: BP 144/89
[2019-01-29] MEDS: MULTIVITAMIN with MINERAL TABLET. PO SCH (07:51)
[2019-01-29] MEDS: RIVASTIGMINE 13.3MG PATCH. TD SCH (07:51)
[2019-01-29] MEDS: CALCIUM CARB/VIT D3 500/200 TABLET PO SCH (07:51)
[2019-01-29] MEDS: FERROUS SULFATE 325 MG TABLET. PO SCH (07:51)
[2019-01-29] MEDS: SERTRALINE 50 MG TABLET. PO SCH (07:51)
[2019-01-29] MEDS: LACTOBACILLUS RHAMNOSUS GG 1 CAPSULE. PO SCH ×2 (07:51→19:41)
[2019-01-29] MEDS: GLUCOSAMINE 500 MG CAPSULE PO SCH (07:52)
[2019-01-29] MEDS: DIVALPROEX 125 MG CAP.SPRINK PO SCH ×2 (07:52→19:41)
[2019-01-29] MEDS: TAMSULOSIN 0.4 MG CAP.ER.24H. PO SCH (07:52)
[2019-01-29] MEDS: BUDESONIDE 0.5 MG/2 ML NEBU NEB SCH ×2 (10:25→20:09)
[2019-01-29 15:52] VITALS: BP 134/70
--- NOTE | 2019-01-29 19:24 | PN ---
DATE: 01/27/2019 PSYCHIATRIC PROGRESS NOTE This late entry 01/27/2019 covers elements not covered in my initial note. SUBJECTIVE: I met with the patient in the evening of 01/27/2019. The patient slept 5-1/4 hours previous night. He remains confused, more so in the evening, somewhat groggy after breakfast. REVIEW OF SYSTEMS: No CV, , pulmonary, eye, ENT system symptoms on review. Reliability poor. MENTAL STATUS EXAM: Oriented to himself. Insight, judgment, recent and remote memory, attention, concentration, fund of knowledge poor, consistent with his diagnosis mentioned in my initial note. PLAN: No change from initial note. Remeron was initiated 7.5 mg p.o. at bedtime and he slept well since then. MAN Leyla SHORT MD DR: RICHARD/ruiz JOB#: [id number] / [id number]
[2019-01-29] MEDS: traZODone 150 MG TABLET. PO SCH (19:41)
[2019-01-29] MEDS: MIRTAZAPINE 7.5 MG TABLET. PO SCH (19:41)
--- NOTE | 2019-01-29 22:20 | PDOC ---
Exam Note: Tony Note: Please also refer to the separate dictated note~for this date of service dictated separately.~Patient seen individually. Discussed the patient with Nursing staff reviewed the chart.~Reviewed interim history and current functioning. Reviewed vital signs,~Labs/ Radiology~and current medications noted below. Continue current treatment with the changes noted in the dictated addendum note Assessment: Vital Signs: Vital Signs Date Time Temp Pulse Resp B/P (MAP) Pulse Ox O2 Delivery O2 Flow Rate FiO2 01/29/19 20:12 Room Air 01/29/19 15:52 97.2 76 20 134/70 (91) 97 01/28/19 06:11 3.0 I&O Intake and Output 01/29/19 07:00 Intake Total 1200 ml Balance 1200 ml Intake Oral 1200 ml Current Medications: Meds: Current Medications Acetaminophen (Tylenol) 650 mg PRN Q6HRS PRN PO PAIN / TEMP; Start 01/25/19 at 12:30; Stop 01/25/19 at 13:54; Status DC Multi-Ingredient Ointment (Analgesic [place]) 1 amy PRN QID PRN TP MUSCLE PAIN; Start 01/25/19 at 12:30 Al Hydroxide/Mg Hydroxide (Mylanta Plus Xs) 15 ml PRN AFTMEALHC PRN PO DYSPEPS [place]; Start 01/25/19 at 12:30 Magnesium Hydroxide (Milk Of Magnesia) 2,400 mg PRN QHS PRN PO CONSTIPATION; Start 01/25/19 at 12:30 Acetaminophen (Tylenol) 650 mg PRN Q6HRS PRN PO PAIN / TEMP Last administered on 01/29/19at 05:08; Start 01/25/19 at 13:30 Albuterol Sulfate (Ventolin) 2.5 mg PRN Q6HRS PRN INH SHORTNESS OF BREATH; Start 01/25/19 at 13:30 Guaifenesin (Guaifenesin) 200 mg DAILY PO Last administered on 01/29/19at 07:51; Start 01/26/19 at 09:00 Albuterol/ Ipratropium (Duoneb) 3 ml QID NEB Last administered on 01/29/19at 20:09; Start 01/25/19 at 17:00 Levothyroxine Sodium (Synthroid) 137 mcg DAILY06 PO Last administered on 01/29/19at 05:08; Start 01/26/19 at 06:00 Olanzapine (ZyPREXA ZYDIS) 2.5 mg PRN Q4HRS PRN PO ANXIETY / AGITATION; Start 01/25/19 at 13:30 Rivastigmine (Exelon 13.3mg) 1 patch DAILY TD Last administered on 01/29/19 07:51; Start 01/26/19 at 09:00 Sertraline HCl (Zoloft) 50 mg DAILY PO Last administered on 01/29/19 07:51; Start 01/26/19 at 09:00 Tamsulosin HCl (Flomax) 0.4 mg DAILY PO Last administered on 01/29/19 07:52; Start 01/26/19 at 09:00 Non-Formulary Medication (Budesonide (Pulmicort)) 0.5 mg RTBID NEB ; Start 01/25/19 at 20:00; Stop 01/25/19 at 20:00; Status DC Calcium/Vitamin D (Oscal D 500mg/ 200uts) 1 tab DAILY PO Last administered on 01/29/19 07:51; Start 01/26/19 at 09:00 Vitamin D (Vitamin D3) 50,000 unit WEEKLY PO Last administered on 01/28/19 08:05; Start 01/28/19 at 09:00 Divalproex Sodium (Depakote Sprinkles) 250 mg BID PO Last administered on 01/29/19 19:41; Start 01/25/19 at 21:00 Ferrous Sulfate (Feosol) 325 mg DAILYWBKFT PO Last administered on 01/29/19 07:51; Start 01/26/19 at 08:00 Glucosamine Sulfate (Glucosamine) 1,000 mg DAILY PO Last administered on 01/29/19 07:52; Start 01/26/19 at 09:00 Haloperidol Lactate (Haldol) 5 mg PRN Q4HRS PRN IM ANXIETY/AGITATION; Start 01/25/19 at 13:45 Lactobacillus Rhamnosus (Culturelle) 1 cap BID PO Last administered on 01/29/19 19:41; Start 01/25/19 at 21:00 Non-Formulary Medication (Mag Hydrox/Al Hydrox/Simeth (Advanced Antacid Liquid)) 15 ml PRN AFTMEALHC PRN PO DYSPEPSIA; Start 01/25/19 at 13:30; Stop 01/25/19 at 13:47; Status DC Non-Formulary Medication (Magnesium Hydroxide (Milk Of Magnesia)) 2,400 mg PRN QHS PRN PO CONSTIPATION; Start 01/25/19 at 13:30; Stop 01/25/19 at 13:47; Status DC Non-Formulary Medication (Methyl Salicylate/Menth/ Camph (Pain-Relief Cream)) 1 amy PRN BID PRN TP foot pain; Start 01/25/19 at 13:30; Stop 01/25/19 at 13:47; Status DC Multivitamins/ Calcium (Thera-M Plus) 1 tab DAILY PO Last administered on 01/29/19at 07:51; Start 01/26/19 at 09:00 Nystatin/ Triamcinolone Acetonide (Mycolog Ii) 1 amy BID TP Last administered on 01/27/19at 08:16; Start 01/25/19 at 21:00; Stop 01/27/19 at 17:01; Status DC Olanzapine (ZyPREXA ZYDIS) 10 mg QHS PO Last administered on 01/29/19at 19:41; Start 01/25/19 at 21:00 Trazodone HCl (Desyrel) 150 mg QHS PO Last administered on 01/29/19 19:41; Start 01/25/19 at 21:00 Budesonide (Pulmicort) 0.5 mg RTBID NEB Last administered on 01/29/19at 20:09; Start 01/25/19 at 20:00 Mirtazapine (Remeron) 7.5 mg QHS PO Last administered on 01/29/19at 19:41; Start 01/26/19 at 21:00 Nystatin/ Triamcinolone Acetonide (Mycolog Ii) 1 amy PRN BID PRN TP AFFECTED AREA; Start 01/27/19 at 21:00 Active Scripts Active Reported Haloperidol 5 Mg Tablet 5 Mg IM PRN Q4HRS PRN Zyprexa Zydis (Olanzapine) 10 Mg Tab.rapdis 10 Mg PO QHS Zyprexa Zydis (Olanzapine) 5 Mg Tab.rapdis 2.5 Mg PO PRN Q4HRS PRN Milk Of Magnesia (Magnesium Hydroxide) 2,400 Mg/10 Ml Oral.susp 2,400 Mg PO PRN QHS PRN Advanced Antacid Liquid (Mag Hydrox/Al Hydrox/Simeth) 355 Ml Oral.susp 15 Ml PO PRN AFTMEALHC PRN Culturelle (Lactobacillus Rhamnosus Gg) 1 Each Capsule 1 Each PO BID Duoneb 0.5-3(2.5) Mg/3 Ml (Albuterol/Ipratropium) 3 Ml Ampul.neb 3 Ml NEB QID Depakote Sprinkle (Divalproex Sodium) 125 Mg Cap.sprink 250 Mg PO BID Vitamin D3 (Cholecalciferol (Vitamin D3)) 5,000 Unit Tablet 50,000 Unit PO WEEKLY Calcium 500 + Vit D 400 Tablet (Calcium Carbonate/Vitamin D3) 1 Each Tablet 1 Each PO DAILY Pulmicort (Budesonide) 0.5 Mg/2 Ml Ampul.neb 0.5 Mg NEB RTBID Tylenol (Acetaminophen) 325 Mg Tablet 650 Mg PO PRN Q6HRS PRN Multivitamins (Multivitamin) 1 Each Tablet 1 Each PO DAILY Nystatin-Triamcinolone Cream (Nystatin/Triamcin) 15 Gm Cream..g. 1 Amy TP BID Guaifenesin 200 Mg Tablet 200 Mg PO DAILY Glucosamine (Glucosamine Sulfate 2KCL) 1,000 Mg Tablet 1,000 Mg PO DAILY Flomax (Tamsulosin Hcl) 0.4 Mg Cap.er.24h 0.4 Mg PO DAILY Zoloft (Sertraline Hcl) 50 Mg Tablet 50 Mg PO DAILY EXELON 13.3mg/24hr (Rivastigmine) 1 Each Patch.td24 1 Patch TD DAILY Pain-Relief Cream (Methyl Salicylate/Menth/Camph) 113.3 Gm Cream..g. 1 Amy TP PRN BID PRN Levothyroxine Sodium 137 Mcg Tablet 137 Mcg PO DAILYAC Ferrous Gluconate 324 Mg Tablet 324 Mg PO DAILY Proair Hfa Inhaler (Albuterol Sulfate) 8.5 Gm Hfa.aer.ad 1 Puff INH PRN Q6HRS PRN Trazodone Hcl 50 Mg Tablet 150 Mg PO QHS I have reviewed the current psychotropics carefully including drug interactions. Risk benefit ratio favors no change other than as noted in my dictated progress note. Diagnosis: Problems: (1) Anxiety disorder (2) Impulse control disorder (3) Dementia, vascular, with depression (4) Dementia, vascular, with delusions (5) Dementia in Alzheimer's disease with depression (6) Dementia in Alzheimer's disease with delusions (7) Dementia with behavioral disturbance MYLES SHORT MD January 29, 2019 22:20
[2019-01-30] MEDS: LEVOTHYROXINE 137 MCG TABLET PO SCH (03:05)
[2019-01-30] MEDS: IPRATRPIUM/ALBUTEROL 0.5/2.5MG 3 ML NEBU. NEB SCH ×4 (05:49→21:11)
[2019-01-30] MEDS: BUDESONIDE 0.5 MG/2 ML NEBU NEB SCH ×2 (05:49→21:12)
[2019-01-30 06:07] VITALS: BP 152/96
[2019-01-30] MEDS: TAMSULOSIN 0.4 MG CAP.ER.24H. PO SCH (09:27)
[2019-01-30] MEDS: LACTOBACILLUS RHAMNOSUS GG 1 CAPSULE. PO SCH ×2 (09:28→20:11)
[2019-01-30] MEDS: DIVALPROEX 125 MG CAP.SPRINK PO SCH ×2 (09:28→20:12)
[2019-01-30] MEDS: CALCIUM CARB/VIT D3 500/200 TABLET PO SCH (09:28)
[2019-01-30] MEDS: RIVASTIGMINE 13.3MG PATCH. TD SCH (09:28)
[2019-01-30] MEDS: SERTRALINE 50 MG TABLET. PO SCH (09:28)
[2019-01-30] MEDS: GLUCOSAMINE 500 MG CAPSULE PO SCH (09:28)
[2019-01-30] MEDS: FERROUS SULFATE 325 MG TABLET. PO SCH (09:28)
[2019-01-30] MEDS: MULTIVITAMIN with MINERAL TABLET. PO SCH (09:28)
--- NOTE | 2019-01-30 11:50 | PN ---
DATE: 01/29/2019 PSYCHIATRIC PROGRESS NOTE This note covers elements not covered in my initial note of 01/29/2019. SUBJECTIVE: Met with the patient in evening of 01/29/2019. The patient slept 6-1/2 hours previous night. The patient fell previous night. No injury was noted. He remains confused, anxious during the day, but redirectable. REVIEW OF SYSTEMS: No CV, , pulmonary, eye, ENT system symptoms on review. Reliability is poor. MENTAL STATUS EXAM: Oriented to himself. Insight, judgment, recent and remote memory, attention, concentration, fund of knowledge is poor, consistent with his diagnoses mentioned in my initial note. PLAN: No change from initial note. MAN Leyla SHORT MD DR: RICHARD/ruiz JOB#: [id number] / [id number]
[2019-01-30 15:59] VITALS: BP 115/78
[2019-01-30] MEDS: ACETAMINOPHEN 325 MG TABLET PO PRN (18:06)
[2019-01-30] MEDS: MIRTAZAPINE 7.5 MG TABLET. PO SCH (20:11)
[2019-01-30] MEDS: traZODone 150 MG TABLET. PO SCH (20:12)
--- NOTE | 2019-01-30 22:26 | PDOC ---
Exam Note: Tony Note: Please also refer to the separate dictated note~for this date of service dictated separately.~Patient seen individually. Discussed the patient with Nursing staff reviewed the chart.~Reviewed interim history and current functioning. Reviewed vital signs,~Labs/ Radiology~and current medications noted below. Continue current treatment with the changes noted in the dictated addendum note Assessment: Vital Signs: Vital Signs Date Time Temp Pulse Resp B/P (MAP) Pulse Ox O2 Delivery O2 Flow Rate FiO2 01/30/19 21:14 Room Air 01/30/19 15:59 98.4 96 20 115/78 (90) 92 01/28/19 06:11 3.0 I&O Intake and Output 01/30/19 06:59 Intake Total 1440 ml Balance 1440 ml Intake Oral 1440 ml Current Medications: Meds: Current Medications Acetaminophen (Tylenol) 650 mg PRN Q6HRS PRN PO PAIN / TEMP; Start 01/25/19 at 12:30; Stop 01/25/19 at 13:54; Status DC Multi-Ingredient Ointment (Analgesic [place]) 1 amy PRN QID PRN TP MUSCLE PAIN; Start 01/25/19 at 12:30 Al Hydroxide/Mg Hydroxide (Mylanta Plus Xs) 15 ml PRN AFTMEALHC PRN PO DYSPEPS [place]; Start 01/25/19 at 12:30 Magnesium Hydroxide (Milk Of Magnesia) 2,400 mg PRN QHS PRN PO CONSTIPATION; Start 01/25/19 at 12:30 Acetaminophen (Tylenol) 650 mg PRN Q6HRS PRN PO PAIN / TEMP Last administered on 01/30/19at 18:06; Start 01/25/19 at 13:30 Albuterol Sulfate (Ventolin) 2.5 mg PRN Q6HRS PRN INH SHORTNESS OF BREATH; Start 01/25/19 at 13:30 Guaifenesin (Guaifenesin) 200 mg DAILY PO Last administered on 01/30/19at 09:30; Start 01/26/19 at 09:00 Albuterol/ Ipratropium (Duoneb) 3 ml QID NEB Last administered on 01/30/19at 21:11; Start 01/25/19 at 17:00 Levothyroxine Sodium (Synthroid) 137 mcg DAILY06 PO Last administered on 01/30/19 03:05; Start 01/26/19 at 06:00 Olanzapine (ZyPREXA ZYDIS) 2.5 mg PRN Q4HRS PRN PO ANXIETY / AGITATION; Start 01/25/19 at 13:30 Rivastigmine (Exelon 13.3mg) 1 patch DAILY TD Last administered on 01/30/19 09:28; Start 01/26/19 at 09:00 Sertraline HCl (Zoloft) 50 mg DAILY PO Last administered on 01/30/19 09:28; Start 01/26/19 at 09:00 Tamsulosin HCl (Flomax) 0.4 mg DAILY PO Last administered on 01/30/19 09:27; Start 01/26/19 at 09:00 Non-Formulary Medication (Budesonide (Pulmicort)) 0.5 mg RTBID NEB ; Start 01/25/19 at 20:00; Stop 01/25/19 at 20:00; Status DC Calcium/Vitamin D (Oscal D 500mg/ 200uts) 1 tab DAILY PO Last administered on 01/30/19 09:28; Start 01/26/19 at 09:00 Vitamin D (Vitamin D3) 50,000 unit WEEKLY PO Last administered on 01/28/19 08:05; Start 01/28/19 at 09:00 Divalproex Sodium (Depakote Sprinkles) 250 mg BID PO Last administered on 01/30/19 20:12; Start 01/25/19 at 21:00 Ferrous Sulfate (Feosol) 325 mg DAILYWBKFT PO Last administered on 01/30/19 09:28; Start 01/26/19 at 08:00 Glucosamine Sulfate (Glucosamine) 1,000 mg DAILY PO Last administered on 01/30/19 09:28; Start 01/26/19 at 09:00 Haloperidol Lactate (Haldol) 5 mg PRN Q4HRS PRN IM ANXIETY/AGITATION; Start 01/25/19 at 13:45 Lactobacillus Rhamnosus (Culturelle) 1 cap BID PO Last administered on 01/30/19 20:11; Start 01/25/19 at 21:00 Non-Formulary Medication (Mag Hydrox/Al Hydrox/Simeth (Advanced Antacid Liquid)) 15 ml PRN AFTMEALHC PRN PO DYSPEPSIA; Start 01/25/19 at 13:30; Stop 01/25/19 at 13:47; Status DC Non-Formulary Medication (Magnesium Hydroxide (Milk Of Magnesia)) 2,400 mg PRN QHS PRN PO CONSTIPATION; Start 01/25/19 at 13:30; Stop 01/25/19 at 13:47; Status DC Non-Formulary Medication (Methyl Salicylate/Menth/ Camph (Pain-Relief Cream)) 1 amy PRN BID PRN TP foot pain; Start 01/25/19 at 13:30; Stop 01/25/19 at 13:47; Status DC Multivitamins/ Calcium (Thera-M Plus) 1 tab DAILY PO Last administered on 01/30/19at 09:28; Start 01/26/19 at 09:00 Nystatin/ Triamcinolone Acetonide (Mycolog Ii) 1 amy BID TP Last administered on 01/27/19at 08:16; Start 01/25/19 at 21:00; Stop 01/27/19 at 17:01; Status DC Olanzapine (ZyPREXA ZYDIS) 10 mg QHS PO Last administered on 01/30/19at 20:12; Start 01/25/19 at 21:00 Trazodone HCl (Desyrel) 150 mg QHS PO Last administered on 01/30/19at 20:12; Start 01/25/19 at 21:00 Budesonide (Pulmicort) 0.5 mg RTBID NEB Last administered on 01/30/19at 21:12; Start 01/25/19 at 20:00 Mirtazapine (Remeron) 7.5 mg QHS PO Last administered on 01/30/19at 20:11; Start 01/26/19 at 21:00 Nystatin/ Triamcinolone Acetonide (Mycolog Ii) 1 amy PRN BID PRN TP AFFECTED AREA; Start 01/27/19 at 21:00 Active Scripts Active Reported Haloperidol 5 Mg Tablet 5 Mg IM PRN Q4HRS PRN Zyprexa Zydis (Olanzapine) 10 Mg Tab.rapdis 10 Mg PO QHS Zyprexa Zydis (Olanzapine) 5 Mg Tab.rapdis 2.5 Mg PO PRN Q4HRS PRN Milk Of Magnesia (Magnesium Hydroxide) 2,400 Mg/10 Ml Oral.susp 2,400 Mg PO PRN QHS PRN Advanced Antacid Liquid (Mag Hydrox/Al Hydrox/Simeth) 355 Ml Oral.susp 15 Ml PO PRN AFTMEALHC PRN Culturelle (Lactobacillus Rhamnosus Gg) 1 Each Capsule 1 Each PO BID Duoneb 0.5-3(2.5) Mg/3 Ml (Albuterol/Ipratropium) 3 Ml Ampul.neb 3 Ml NEB QID Depakote Sprinkle (Divalproex Sodium) 125 Mg Cap.sprink 250 Mg PO BID Vitamin D3 (Cholecalciferol (Vitamin D3)) 5,000 Unit Tablet 50,000 Unit PO WEEKLY Calcium 500 + Vit D 400 Tablet (Calcium Carbonate/Vitamin D3) 1 Each Tablet 1 Each PO DAILY Pulmicort (Budesonide) 0.5 Mg/2 Ml Ampul.neb 0.5 Mg NEB RTBID Tylenol (Acetaminophen) 325 Mg Tablet 650 Mg PO PRN Q6HRS PRN Multivitamins (Multivitamin) 1 Each Tablet 1 Each PO DAILY Nystatin-Triamcinolone Cream (Nystatin/Triamcin) 15 Gm Cream..g. 1 Amy TP BID Guaifenesin 200 Mg Tablet 200 Mg PO DAILY Glucosamine (Glucosamine Sulfate 2KCL) 1,000 Mg Tablet 1,000 Mg PO DAILY Flomax (Tamsulosin Hcl) 0.4 Mg Cap.er.24h 0.4 Mg PO DAILY Zoloft (Sertraline Hcl) 50 Mg Tablet 50 Mg PO DAILY EXELON 13.3mg/24hr (Rivastigmine) 1 Each Patch.td24 1 Patch TD DAILY Pain-Relief Cream (Methyl Salicylate/Menth/Camph) 113.3 Gm Cream..g. 1 Amy TP PRN BID PRN Levothyroxine Sodium 137 Mcg Tablet 137 Mcg PO DAILYAC Ferrous Gluconate 324 Mg Tablet 324 Mg PO DAILY Proair Hfa Inhaler (Albuterol Sulfate) 8.5 Gm Hfa.aer.ad 1 Puff INH PRN Q6HRS PRN Trazodone Hcl 50 Mg Tablet 150 Mg PO QHS I have reviewed the current psychotropics carefully including drug interactions. Risk benefit ratio favors no change other than as noted in my dictated progress note. Diagnosis: Problems: (1) Anxiety disorder (2) Impulse control disorder (3) Dementia, vascular, with depression (4) Dementia, vascular, with delusions (5) Dementia in Alzheimer's disease with depression (6) Dementia in Alzheimer's disease with delusions (7) Acute and chronic respiratory failure with hypoxia (8) Obstructive sleep apnea (9) Dementia with behavioral disturbance MYLES SHORT MD January 30, 2019 22:26
--- NOTE | 2019-01-30 22:50 | PN ---
DATE: 01/30/2019 PSYCHIATRIC PROGRESS NOTE This note covers elements not covered in my initial note 01/30/2019. SUBJECTIVE: The patient was seen individually evening of 01/30/2019. Per nursing report, the patient slept 6 hours previous night. I met with him in the evening of 01/30/2019. He has been wandering, exit seeking, confused, watching the door, oblivious of his surroundings. He followed me around the unit as I went on my rounds, quite oblivious of where he was. REVIEW OF SYSTEMS: No CV, , pulmonary, eye, ENT system symptoms on review. Reliability poor. MENTAL STATUS EXAM: Oriented to himself. Insight, judgment, recent and remote memory, attention, concentration, fund of knowledge poor, consistent with his diagnosis mentioned in my initial note. PLAN: No change from initial note. Check CBC, CMP, valproic acid, ammonia level in the morning, then adjust the Depakote thereafter. Rest unchanged. MAN Leyla SHORT MD DR: RICHARD/ruiz JOB#: [id number] / [id number]
--- NOTE | 2019-01-31 00:17 | PN ---
DATE: 01/28/2019 PSYCHIATRIC PROGRESS NOTE This late entry 01/28/2019 covers elements not covered in my initial note. SUBJECTIVE: I met with the patient in the evening of 01/28/2019. The patient slept 7-3/4 hours previous evening. He remains confused, wanders the hallways, oblivious of where he is. REVIEW OF SYSTEMS: No CV, , pulmonary, eye, ENT system symptoms on review. Reliability poor. MENTAL STATUS EXAM: Oriented to himself. Insight, judgment, recent and remote memory, attention, concentration, fund of knowledge poor, consistent with his diagnosis mentioned in my initial note. PLAN: No change from initial note. MAN Leyla SHORT MD DR: RICHARD/ruiz JOB#: [id number] / [id number]
[2019-01-31 05:54] VITALS: BP 160/94
[2019-01-31] MEDS: LEVOTHYROXINE 137 MCG TABLET PO SCH (06:16)
[2019-01-31] MEDS: IPRATRPIUM/ALBUTEROL 0.5/2.5MG 3 ML NEBU. NEB SCH ×4 (06:34→21:00)
[2019-01-31] MEDS: BUDESONIDE 0.5 MG/2 ML NEBU NEB SCH ×2 (06:35→20:00)
[2019-01-31 07:26] LABS: BASO % 1 % (0-3); EOS # 0.3 x10^3/uL (0.0-0.7); EOS % 6 % (0-3); HEMATOCRIT 36.3 % (39.0-53.0); HEMOGLOBIN 12.1 g/dL (13.0-17.5); LYMPH # 0.7 x10^3/uL (1.0-4.8); LYMPH % 16 % (24-48); MEAN CORPUSCULAR HEMOGLOBIN 31 pg (25-35); MEAN CORPUSCULAR HGB CONC 33 g/dL (31-37); MEAN CORPUSCULAR VOLUME 94 fL (79-100); MONO # 0.6 x10^3/uL (0.0-1.1); MONO % 14 % (0-9); NEUT # 2.9 x10^3uL (1.8-7.7); NEUT % 64 % (31-73); PLATELET COUNT 351 x10^3/uL (140-400); RED BLOOD COUNT 3.87 x10^6/uL (4.30-5.70); RED CELL DISTRIBUTION WIDTH 14.4 % (11.5-14.5); WHITE BLOOD COUNT 4.5 x10^3/uL (4.0-11.0)
[2019-01-31 07:46] LABS: ALBUMIN 2.7 g/dL (3.4-5.0); ALBUMIN/GLOBULIN RATIO 0.6 (1.0-1.7); ALK PHOS 70 U/L (46-116); ALT (SGPT) 36 U/L (16-63); ANION GAP 9 (6-14); AST (SGOT) 25 U/L (15-37); BLOOD UREA NITROGEN 23 mg/dL (8-26); BUN/CREATININE RATIO 16 (6-20); CALCIUM 8.8 mg/dL (8.5-10.1); CARBON DIOXIDE 30 mmol/L (21-32); CHLORIDE 104 mmol/L (98-107); CREATININE 1.4 mg/dL (0.7-1.3); GFR 48.5; GLUCOSE 87 mg/dL (70-99); POTASSIUM 4.2 mmol/L (3.5-5.1); SODIUM 143 mmol/L (136-145); TOTAL BILIRUBIN 0.3 mg/dL (0.2-1.0)
[2019-01-31 07:48] LABS: VAL ACID 32 mcg/mL (50-100)
[2019-01-31 07:53] VITALS: BP 111/79
[2019-01-31] MEDS: FERROUS SULFATE 325 MG TABLET. PO SCH (09:30)
[2019-01-31] MEDS: LACTOBACILLUS RHAMNOSUS GG 1 CAPSULE. PO SCH ×2 (09:30→20:29)
[2019-01-31] MEDS: GLUCOSAMINE 500 MG CAPSULE PO SCH (09:30)
[2019-01-31] MEDS: SERTRALINE 50 MG TABLET. PO SCH (09:30)
[2019-01-31] MEDS: TAMSULOSIN 0.4 MG CAP.ER.24H. PO SCH (09:30)
[2019-01-31] MEDS: MULTIVITAMIN with MINERAL TABLET. PO SCH (09:30)
[2019-01-31] MEDS: CALCIUM CARB/VIT D3 500/200 TABLET PO SCH (09:30)
[2019-01-31] MEDS: RIVASTIGMINE 13.3MG PATCH. TD SCH (09:31)
[2019-01-31] MEDS: DIVALPROEX 125 MG CAP.SPRINK PO SCH ×2 (09:31→20:30)
[2019-01-31 16:24] VITALS: BP 131/88
[2019-01-31] MEDS: MIRTAZAPINE 7.5 MG TABLET. PO SCH (20:30)
[2019-01-31] MEDS: traZODone 150 MG TABLET. PO SCH (20:38)
--- NOTE | 2019-01-31 22:30 | PN ---
DATE: 01/31/2019 PSYCHIATRIC PROGRESS NOTE This note covers elements not covered in my initial note 01/31/2019. SUBJECTIVE: I met with the patient in the evening. The patient slept 7-1/4 hours previous night. He remains anxious, confused, somewhat better than before. He is still checking the door repeatedly, received Zyprexa p.r.n. Slept 7-1/4 hours. REVIEW OF SYSTEMS: No CV, , pulmonary, eye, ENT system symptoms on review. Reliability poor. MENTAL STATUS EXAM: Oriented to himself. Insight, judgment, recent and remote memory, attention, concentration, fund of knowledge poor, consistent with his diagnosis mentioned in my initial note. PLAN: No change from initial note. MAN Leyla SHORT MD DR: RICHARD/ruiz JOB#: [id number] / [id number]
--- NOTE | 2019-01-31 22:30 | PDOC ---
Exam Note: Tony Note: Please also refer to the separate dictated note~for this date of service dictated separately.~Patient seen individually. Discussed the patient with Nursing staff reviewed the chart.~Reviewed interim history and current functioning. Reviewed vital signs,~Labs/ Radiology~and current medications noted below. Continue current treatment with the changes noted in the dictated addendum note Assessment: Vital Signs: Vital Signs Date Time Temp Pulse Resp B/P (MAP) Pulse Ox O2 Delivery O2 Flow Rate FiO2 01/31/19 21:10 Room Air 01/31/19 16:24 97.4 92 18 131/88 (102) 94 01/28/19 06:11 3.0 I&O Intake and Output 01/31/19 06:59 Intake Total 1200 ml Balance 1200 ml Intake Oral 1200 ml # Voids 1 Labs: Laboratory Tests Test 01/31/19 07:05 White Blood Count 4.5 x10^3/uL (4.0-11.0) Red Blood Count 3.87 x10^6/uL (4.30-5.70) L Hemoglobin 12.1 g/dL (13.0-17.5) L Hematocrit 36.3 % (39.0-53.0) L Mean Corpuscular Volume 94 fL (79-100) Mean Corpuscular Hemoglobin 31 pg (25-35) Mean Corpuscular Hemoglobin Concent 33 g/dL (31-37) Red Cell Distribution Width 14.4 % (11.5-14.5) Platelet Count 351 x10^3/uL (140-400) Neutrophils (%) (Auto) 64 % (31-73) Lymphocytes (%) (Auto) 16 % (24-48) L Monocytes (%) (Auto) 14 % (0-9) H Eosinophils (%) (Auto) 6 % (0-3) H Basophils (%) (Auto) 1 % (0-3) Neutrophils # (Auto) 2.9 x10^3uL (1.8-7.7) Lymphocytes # (Auto) 0.7 x10^3/uL (1.0-4.8) L Monocytes # (Auto) 0.6 x10^3/uL (0.0-1.1) Eosinophils # (Auto) 0.3 x10^3/uL (0.0-0.7) Basophils # (Auto) 0.0 x10^3/uL (0.0-0.2) Sodium Level 143 mmol/L (136-145) Potassium Level 4.2 mmol/L (3.5-5.1) Chloride Level 104 mmol/L (98-107) Carbon Dioxide Level 30 mmol/L (21-32) Anion Gap 9 (6-14) Blood Urea Nitrogen 23 mg/dL (8-26) Creatinine 1.4 mg/dL (0.7-1.3) H Estimated GFR (Cockcroft-Gault) 48.5 BUN/Creatinine Ratio 16 (6-20) Glucose Level 87 mg/dL (70-99) Calcium Level 8.8 mg/dL (8.5-10.1) Total Bilirubin 0.3 mg/dL (0.2-1.0) Aspartate Amino Transferase (AST) 25 U/L (15-37) Alanine Aminotransferase (ALT) 36 U/L (16-63) Alkaline Phosphatase 70 U/L (46-116) Ammonia 24 mcmol/L (11-34) Total Protein 7.0 g/dL (6.4-8.2) Albumin 2.7 g/dL (3.4-5.0) L Albumin/Globulin Ratio 0.6 (1.0-1.7) L Valproic Acid Level 32 mcg/mL (50-100) L Valproic Acid Last Dose Date 01/30/19 Valproic Acid Last Dose Time 2100 Current Medications: Meds: Current Medications Acetaminophen (Tylenol) 650 mg PRN Q6HRS PRN PO PAIN / TEMP; Start 01/25/19 at 12:30; Stop 01/25/19 at 13:54; Status DC Multi-Ingredient Ointment (Analgesic [place]) 1 amy PRN QID PRN TP MUSCLE PAIN; Start 01/25/19 at 12:30 Al Hydroxide/Mg Hydroxide (Mylanta Plus Xs) 15 ml PRN AFTMEALHC PRN PO DYSPEPSIA; Start 01/25/19 at 12:30 Magnesium Hydroxide (Milk Of Magnesia) 2,400 mg PRN QHS PRN PO CONSTIPATION; Start 01/25/19 at 12:30 Acetaminophen (Tylenol) 650 mg PRN Q6HRS PRN PO PAIN / TEMP Last administered on 01/30/19at 18:06; Start 01/25/19 at 13:30 Albuterol Sulfate (Ventolin) 2.5 mg PRN Q6HRS PRN INH SHORTNESS OF BREATH; Start 01/25/19 at 13:30 Guaifenesin (Guaifenesin) 200 mg DAILY PO Last administered on 01/31/19 09:41; Start 01/26/19 at 09:00 Albuterol/ Ipratropium (Duoneb) 3 ml QID NEB Last administered on 01/31/19 21:00; Start 01/25/19 at 17:00 Levothyroxine Sodium (Synthroid) 137 mcg DAILY06 PO Last administered on 01/31/19 06:16; Start 01/26/19 at 06:00 Olanzapine (ZyPREXA ZYDIS) 2.5 mg PRN Q4HRS PRN PO ANXIETY / AGITATION Last administered on 01/31/19 15:52; Start 01/25/19 at 13:30 Rivastigmine (Exelon 13.3mg) 1 patch DAILY TD Last administered on 01/31/19 09:31; Start 01/26/19 at 09:00 Sertraline HCl (Zoloft) 50 mg DAILY PO Last administered on 01/31/19 09:30; Start 01/26/19 at 09:00 Tamsulosin HCl (Flomax) 0.4 mg DAILY PO Last administered on 01/31/19 09:30; Start 01/26/19 at 09:00 Non-Formulary Medication (Budesonide (Pulmicort)) 0.5 mg RTBID NEB ; Start 01/25/19 at 20:00; Stop 01/25/19 at 20:00; Status DC Calcium/Vitamin D (Oscal D 500mg/ 200uts) 1 tab DAILY PO Last administered on 01/31/19 09:30; Start 01/26/19 at 09:00 Vitamin D (Vitamin D3) 50,000 unit WEEKLY PO Last administered on 01/28/19 08:05; Start 01/28/19 at 09:00 Divalproex Sodium (Depakote Sprinkles) 250 mg BID PO Last administered on 01/31/19 20:30; Start 01/25/19 at 21:00 Ferrous Sulfate (Feosol) 325 mg DAILYWBKFT PO Last administered on 01/31/19 09:30; Start 01/26/19 at 08:00 Glucosamine Sulfate (Glucosamine) 1,000 mg DAILY PO Last administered on 01/31/19 09:30; Start 01/26/19 at 09:00 Haloperidol Lactate (Haldol) 5 mg PRN Q4HRS PRN IM ANXIETY/AGITATION; Start 01/25/19 at 13:45 Lactobacillus Rhamnosus (Culturelle) 1 cap BID PO Last administered on 01/31/19 20:29; Start 01/25/19 at 21:00 Non-Formulary Medication (Mag Hydrox/Al Hydrox/Simeth (Advanced Antacid Liquid)) 15 ml PRN AFTMEALHC PRN PO DYSPEPSIA; Start 01/25/19 at 13:30; Stop 01/25/19 at 13:47; Status DC Non-Formulary Medication (Magnesium Hydroxide (Milk Of Magnesia)) 2,400 mg PRN QHS PRN PO CONSTIPATION; Start 01/25/19 at 13:30; Stop 01/25/19 at 13:47; Status DC Non-Formulary Medication (Methyl Salicylate/Menth/ Camph (Pain-Relief Cream)) 1 amy PRN BID PRN TP foot pain; Start 01/25/19 at 13:30; Stop 01/25/19 at 13:47; Status DC Multivitamins/ Calcium (Thera-M Plus) 1 tab DAILY PO Last administered on 01/31/19 09:30; Start 01/26/19 at 09:00 Nystatin/ Triamcinolone Acetonide (Mycolog Ii) 1 amy BID TP Last administered on 01/27/19 08:16; Start 01/25/19 at 21:00; Stop 01/27/19 at 17:01; Status DC Olanzapine (ZyPREXA ZYDIS) 10 mg QHS PO Last administered on 01/31/19 20:30; Start 01/25/19 at 21:00 Trazodone HCl (Desyrel) 150 mg QHS PO Last administered on 01/31/19 20:38; Start 01/25/19 at 21:00 Budesonide (Pulmicort) 0.5 mg RTBID NEB Last administered on 01/31/19 20:00; Start 5/22/19 at 20:00 Mirtazapine (Remeron) 7.5 mg QHS PO Last administered on 01/31/19at 20:30; Start 01/26/19 at 21:00 Nystatin/ Triamcinolone Acetonide (Mycolog Ii) 1 amy PRN BID PRN TP AFFECTED AREA; Start 01/27/19 at 21:00 Active Scripts Active Reported Haloperidol 5 Mg Tablet 5 Mg IM PRN Q4HRS PRN Zyprexa Zydis (Olanzapine) 10 Mg Tab.rapdis 10 Mg PO QHS Zyprexa Zydis (Olanzapine) 5 Mg Tab.rapdis 2.5 Mg PO PRN Q4HRS PRN Milk Of Magnesia (Magnesium Hydroxide) 2,400 Mg/10 Ml Oral.susp 2,400 Mg PO PRN QHS PRN Advanced Antacid Liquid (Mag Hydrox/Al Hydrox/Simeth) 355 Ml Oral.susp 15 Ml PO PRN AFTMEALHC PRN Culturelle (Lactobacillus Rhamnosus Gg) 1 Each Capsule 1 Each PO BID Duoneb 0.5-3(2.5) Mg/3 Ml (Albuterol/Ipratropium) 3 Ml Ampul.neb 3 Ml NEB QID Depakote Sprinkle (Divalproex Sodium) 125 Mg Cap.sprink 250 Mg PO BID Vitamin D3 (Cholecalciferol (Vitamin D3)) 5,000 Unit Tablet 50,000 Unit PO WEEKLY Calcium 500 + Vit D 400 Tablet (Calcium Carbonate/Vitamin D3) 1 Each Tablet 1 Each PO DAILY Pulmicort (Budesonide) 0.5 Mg/2 Ml Ampul.neb 0.5 Mg NEB RTBID Tylenol (Acetaminophen) 325 Mg Tablet 650 Mg PO PRN Q6HRS PRN Multivitamins (Multivitamin) 1 Each Tablet 1 Each PO DAILY Nystatin-Triamcinolone Cream (Nystatin/Triamcin) 15 Gm Cream..g. 1 Amy TP BID Guaifenesin 200 Mg Tablet 200 Mg PO DAILY Glucosamine (Glucosamine Sulfate 2KCL) 1,000 Mg Tablet 1,000 Mg PO DAILY Flomax (Tamsulosin Hcl) 0.4 Mg Cap.er.24h 0.4 Mg PO DAILY Zoloft (Sertraline Hcl) 50 Mg Tablet 50 Mg PO DAILY EXELON 13.3mg/24hr (Rivastigmine) 1 Each Patch.td24 1 Patch TD DAILY Pain-Relief Cream (Methyl Salicylate/Menth/Camph) 113.3 Gm Cream..g. 1 Amy TP PRN BID PRN Levothyroxine Sodium 137 Mcg Tablet 137 Mcg PO DAILYAC Ferrous Gluconate 324 Mg Tablet 324 Mg PO DAILY Proair Hfa Inhaler (Albuterol Sulfate) 8.5 Gm Hfa.aer.ad 1 Puff INH PRN Q6HRS PRN Trazodone Hcl 50 Mg Tablet 150 Mg PO QHS I have reviewed the current psychotropics carefully including drug interactions. Risk benefit ratio favors no change other than as noted in my dictated progress note. Diagnosis: Problems: (1) Anxiety disorder (2) Impulse control disorder (3) Dementia, vascular, with depression (4) Dementia, vascular, with delusions (5) Dementia in Alzheimer's disease with depression (6) Dementia in Alzheimer's disease with delusions (7) Dementia with behavioral disturbance MYLES SHORT MD January 31, 2019 22:30
[2019-02-01] MEDS: LEVOTHYROXINE 137 MCG TABLET PO SCH (05:47)
[2019-02-01] MEDS: IPRATRPIUM/ALBUTEROL 0.5/2.5MG 3 ML NEBU. NEB SCH ×4 (06:03→21:00)
[2019-02-01 06:27] VITALS: BP 116/78
[2019-02-01] MEDS: SERTRALINE 50 MG TABLET. PO SCH (07:53)
[2019-02-01] MEDS: CALCIUM CARB/VIT D3 500/200 TABLET PO SCH (07:53)
[2019-02-01] MEDS: MULTIVITAMIN with MINERAL TABLET. PO SCH (07:53)
[2019-02-01] MEDS: FERROUS SULFATE 325 MG TABLET. PO SCH (07:53)
[2019-02-01] MEDS: TAMSULOSIN 0.4 MG CAP.ER.24H. PO SCH (07:53)
[2019-02-01] MEDS: DIVALPROEX 125 MG CAP.SPRINK PO SCH ×2 (07:53→20:11)
[2019-02-01] MEDS: GLUCOSAMINE 500 MG CAPSULE PO SCH (07:53)
[2019-02-01] MEDS: LACTOBACILLUS RHAMNOSUS GG 1 CAPSULE. PO SCH ×2 (07:53→20:11)
[2019-02-01] MEDS: RIVASTIGMINE 13.3MG PATCH. TD SCH (07:53)
[2019-02-01] MEDS: BUDESONIDE 0.5 MG/2 ML NEBU NEB SCH ×2 (09:51→20:00)
[2019-02-01 16:16] VITALS: BP 108/80
[2019-02-01] MEDS: MIRTAZAPINE 7.5 MG TABLET. PO SCH (20:11)
[2019-02-01] MEDS: traZODone 150 MG TABLET. PO SCH (20:11)
--- NOTE | 2019-02-01 22:18 | PDOC ---
Exam Note: Tony Note: Please also refer to the separate dictated note~for this date of service dictated separately.~Patient seen individually. Discussed the patient with Nursing staff reviewed the chart.~Reviewed interim history and current functioning. Reviewed vital signs,~Labs/ Radiology~and current medications noted below. Continue current treatment with the changes noted in the dictated addendum note Assessment: Vital Signs: Vital Signs Date Time Temp Pulse Resp B/P (MAP) Pulse Ox O2 Delivery O2 Flow Rate FiO2 02/01/19 16:16 98.0 98 18 108/80 (89) 90 02/01/19 15:58 Room Air 01/28/19 06:11 3.0 I&O Intake and Output 02/01/19 07:00 Intake Total 1200 ml Balance 1200 ml Intake Oral 1200 ml Current Medications: Meds: Current Medications Acetaminophen (Tylenol) 650 mg PRN Q6HRS PRN PO PAIN / TEMP; Start 01/25/19 at 12:30; Stop 01/25/19 at 13:54; Status DC Multi-Ingredient Ointment (Analgesic [place]) 1 amy PRN QID PRN TP MUSCLE PAIN; Start 01/25/19 at 12:30 Al Hydroxide/Mg Hydroxide (Mylanta Plus Xs) 15 ml PRN AFTMEALHC PRN PO DYSPEPS [place]; Start 01/25/19 at 12:30 Magnesium Hydroxide (Milk Of Magnesia) 2,400 mg PRN QHS PRN PO CONSTIPATION; Start 01/25/19 at 12:30 Acetaminophen (Tylenol) 650 mg PRN Q6HRS PRN PO PAIN / TEMP Last administered on 01/30/19at 18:06; Start 01/25/19 at 13:30 Albuterol Sulfate (Ventolin) 2.5 mg PRN Q6HRS PRN INH SHORTNESS OF BREATH; Start 01/25/19 at 13:30 Guaifenesin (Guaifenesin) 200 mg DAILY PO Last administered on 02/01/19at 07:54; Start 01/26/19 at 09:00 Albuterol/ Ipratropium (Duoneb) 3 ml QID NEB Last administered on 02/01/19at 15:58; Start 01/25/19 at 17:00 Levothyroxine Sodium (Synthroid) 137 mcg DAILY06 PO Last administered on 02/01/19at 05:47; Start 01/26/19 at 06:00 Olanzapine (ZyPREXA ZYDIS) 2.5 mg PRN Q4HRS PRN PO ANXIETY / AGITATION Last administered on 01/31/19 15:52; Start 01/25/19 at 13:30 Rivastigmine (Exelon 13.3mg) 1 patch DAILY TD Last administered on 02/01/19 07:53; Start 01/26/19 at 09:00 Sertraline HCl (Zoloft) 50 mg DAILY PO Last administered on 02/01/19 07:53; Start 01/26/19 at 09:00; Stop 02/01/19 at 16:43; Status DC Tamsulosin HCl (Flomax) 0.4 mg DAILY PO Last administered on 02/01/19 07:53; Start 01/26/19 at 09:00 Non-Formulary Medication (Budesonide (Pulmicort)) 0.5 mg RTBID NEB ; Start 01/25/19 at 20:00; Stop 01/25/19 at 20:00; Status DC Calcium/Vitamin D (Oscal D 500mg/ 200uts) 1 tab DAILY PO Last administered on 02/01/19 07:53; Start 01/26/19 at 09:00 Vitamin D (Vitamin D3) 50,000 unit WEEKLY PO Last administered on 01/28/19 08:05; Start 01/28/19 at 09:00 Divalproex Sodium (Depakote Sprinkles) 250 mg BID PO Last administered on 02/01/19 20:11; Start 01/25/19 at 21:00 Ferrous Sulfate (Feosol) 325 mg DAILYWBKFT PO Last administered on 02/01/19 07:53; Start 01/26/19 at 08:00 Glucosamine Sulfate (Glucosamine) 1,000 mg DAILY PO Last administered on 02/01/19 07:53; Start 01/26/19 at 09:00 Haloperidol Lactate (Haldol) 5 mg PRN Q4HRS PRN IM ANXIETY/AGITATION; Start 01/25/19 at 13:45 Lactobacillus Rhamnosus (Culturelle) 1 cap BID PO Last administered on 02/01/19 20:11; Start 01/25/19 at 21:00 Non-Formulary Medication (Mag Hydrox/Al Hydrox/Simeth (Advanced Antacid Liquid)) 15 ml PRN AFTMEALHC PRN PO DYSPEPSIA; Start 01/25/19 at 13:30; Stop 01/25/19 at 13:47; Status DC Non-Formulary Medication (Magnesium Hydroxide (Milk Of Magnesia)) 2,400 mg PRN QHS PRN PO CONSTIPATION; Start 01/25/19 at 13:30; Stop 01/25/19 at 13:47; Status DC Non-Formulary Medication (Methyl Salicylate/Menth/ Camph (Pain-Relief Cream)) 1 amy PRN BID PRN TP foot pain; Start 01/25/19 at 13:30; Stop 01/25/19 at 13:47; Status DC Multivitamins/ Calcium (Thera-M Plus) 1 tab DAILY PO Last administered on 02/01/19at 07:53; Start 01/26/19 at 09:00 Nystatin/ Triamcinolone Acetonide (Mycolog Ii) 1 amy BID TP Last administered on 01/27/19 08:16; Start 01/25/19 at 21:00; Stop 01/27/19 at 17:01; Status DC Olanzapine (ZyPREXA ZYDIS) 10 mg QHS PO Last administered on 02/01/19 20:11; Start 01/25/19 at 21:00 Trazodone HCl (Desyrel) 150 mg QHS PO Last administered on 02/01/19 20:11; Start 01/25/19 at 21:00 Budesonide (Pulmicort) 0.5 mg RTBID NEB Last administered on 02/01/19at 09:51; Start 01/25/19 at 20:00 Mirtazapine (Remeron) 7.5 mg QHS PO Last administered on 02/01/19 20:11; Start 01/26/19 at 21:00 Nystatin/ Triamcinolone Acetonide (Mycolog Ii) 1 amy PRN BID PRN TP AFFECTED AREA; Start 01/27/19 at 21:00 Sertraline HCl (Zoloft) 75 mg DAILY PO ; Start 02/02/19 at 09:00 Active Scripts Active Reported Haloperidol 5 Mg Tablet 5 Mg IM PRN Q4HRS PRN Zyprexa Zydis (Olanzapine) 10 Mg Tab.rapdis 10 Mg PO QHS Zyprexa Zydis (Olanzapine) 5 Mg Tab.rapdis 2.5 Mg PO PRN Q4HRS PRN Milk Of Magnesia (Magnesium Hydroxide) 2,400 Mg/10 Ml Oral.susp 2,400 Mg PO PRN QHS PRN Advanced Antacid Liquid (Mag Hydrox/Al Hydrox/Simeth) 355 Ml Oral.susp 15 Ml PO PRN AFTMEALHC PRN Culturelle (Lactobacillus Rhamnosus Gg) 1 Each Capsule 1 Each PO BID Duoneb 0.5-3(2.5) Mg/3 Ml (Albuterol/Ipratropium) 3 Ml Ampul.neb 3 Ml NEB QID Depakote Sprinkle (Divalproex Sodium) 125 Mg Cap.sprink 250 Mg PO BID Vitamin D3 (Cholecalciferol (Vitamin D3)) 5,000 Unit Tablet 50,000 Unit PO WEEKLY Calcium 500 + Vit D 400 Tablet (Calcium Carbonate/Vitamin D3) 1 Each Tablet 1 Each PO DAILY Pulmicort (Budesonide) 0.5 Mg/2 Ml Ampul.neb 0.5 Mg NEB RTBID Tylenol (Acetaminophen) 325 Mg Tablet 650 Mg PO PRN Q6HRS PRN Multivitamins (Multivitamin) 1 Each Tablet 1 Each PO DAILY Nystatin-Triamcinolone Cream (Nystatin/Triamcin) 15 Gm Cream..g. 1 Amy TP BID Guaifenesin 200 Mg Tablet 200 Mg PO DAILY Glucosamine (Glucosamine Sulfate 2KCL) 1,000 Mg Tablet 1,000 Mg PO DAILY Flomax (Tamsulosin Hcl) 0.4 Mg Cap.er.24h 0.4 Mg PO DAILY Zoloft (Sertraline Hcl) 50 Mg Tablet 50 Mg PO DAILY EXELON 13.3mg/24hr (Rivastigmine) 1 Each Patch.td24 1 Patch TD DAILY Pain-Relief Cream (Methyl Salicylate/Menth/Camph) 113.3 Gm Cream..g. 1 Amy TP PRN BID PRN Levothyroxine Sodium 137 Mcg Tablet 137 Mcg PO DAILYAC Ferrous Gluconate 324 Mg Tablet 324 Mg PO DAILY Proair Hfa Inhaler (Albuterol Sulfate) 8.5 Gm Hfa.aer.ad 1 Puff INH PRN Q6HRS PRN Trazodone Hcl 50 Mg Tablet 150 Mg PO QHS I have reviewed the current psychotropics carefully including drug interactions. Risk benefit ratio favors no change other than as noted in my dictated progress note. Diagnosis: Problems: (1) Anxiety disorder (2) Impulse control disorder (3) Dementia, vascular, with depression (4) Dementia, vascular, with delusions (5) Dementia in Alzheimer's disease with depression (6) Dementia in Alzheimer's disease with delusions (7) Dementia with behavioral disturbance MYLES SHORT MD February 01, 2019 22:18
[2019-02-02] MEDS: ACETAMINOPHEN 325 MG TABLET PO PRN (00:53)
[2019-02-02 00:57] VITALS: BP 136/79
[2019-02-02] MEDS: IPRATRPIUM/ALBUTEROL 0.5/2.5MG 3 ML NEBU. NEB SCH ×4 (05:05→20:37)
[2019-02-02] MEDS: BUDESONIDE 0.5 MG/2 ML NEBU NEB SCH ×2 (05:05→20:38)
[2019-02-02] MEDS: LEVOTHYROXINE 137 MCG TABLET PO SCH (06:02)
[2019-02-02 06:10] VITALS: BP 106/80
[2019-02-02] MEDS: FERROUS SULFATE 325 MG TABLET. PO SCH (12:07)
[2019-02-02] MEDS: TAMSULOSIN 0.4 MG CAP.ER.24H. PO SCH (12:08)
[2019-02-02] MEDS: DIVALPROEX 125 MG CAP.SPRINK PO SCH ×2 (12:08→19:28)
[2019-02-02] MEDS: GLUCOSAMINE 500 MG CAPSULE PO SCH (12:09)
[2019-02-02] MEDS: MULTIVITAMIN with MINERAL TABLET. PO SCH (12:09)
[2019-02-02] MEDS: CALCIUM CARB/VIT D3 500/200 TABLET PO SCH (12:09)
[2019-02-02] MEDS: RIVASTIGMINE 13.3MG PATCH. TD SCH (12:10)
[2019-02-02] MEDS: LACTOBACILLUS RHAMNOSUS GG 1 CAPSULE. PO SCH ×2 (12:11→19:29)
[2019-02-02] MEDS: SERTRALINE 50 MG TABLET. PO SCH (12:12)
[2019-02-02 15:36] VITALS: BP 116/80
[2019-02-02] MEDS: MIRTAZAPINE 7.5 MG TABLET. PO SCH (19:29)
[2019-02-02] MEDS: traZODone 150 MG TABLET. PO SCH (19:29)
--- NOTE | 2019-02-02 22:14 | PDOC ---
Exam Note: Tony Note: Please also refer to the separate dictated note~for this date of service dictated separately.~Patient seen individually. Discussed the patient with Nursing staff reviewed the chart.~Reviewed interim history and current functioning. Reviewed vital signs,~Labs/ Radiology~and current medications noted below. Continue current treatment with the changes noted in the dictated addendum note Assessment: Vital Signs: Vital Signs Date Time Temp Pulse Resp B/P (MAP) Pulse Ox O2 Delivery O2 Flow Rate FiO2 02/02/19 16:16 Room Air 02/02/19 15:36 98.3 72 16 116/80 (92) 93 01/28/19 06:11 3.0 I&O Intake and Output 02/02/19 07:00 Intake Total 420 ml Balance 420 ml Intake Oral 420 ml # Voids 1 Current Medications: Meds: Current Medications Acetaminophen (Tylenol) 650 mg PRN Q6HRS PRN PO PAIN / TEMP; Start 01/25/19 at 12:30; Stop 01/25/19 at 13:54; Status DC Multi-Ingredient Ointment (Analgesic [place]) 1 amy PRN QID PRN TP MUSCLE PAIN; Start 01/25/19 at 12:30 Al Hydroxide/Mg Hydroxide (Mylanta Plus Xs) 15 ml PRN AFTMEALHC PRN PO DYSPEPSIA; Start 01/25/19 at 12:30 Magnesium Hydroxide (Milk Of Magnesia) 2,400 mg PRN QHS PRN PO CONSTIPATION; Start 01/25/19 at 12:30 Acetaminophen (Tylenol) 650 mg PRN Q6HRS PRN PO PAIN / TEMP Last administered on 02/02/19at 00:53; Start 01/25/19 at 13:30 Albuterol Sulfate (Ventolin) 2.5 mg PRN Q6HRS PRN INH SHORTNESS OF BREATH; Start 01/25/19 at 13:30 Guaifenesin (Guaifenesin) 200 mg DAILY PO Last administered on 02/02/19at 12:09; Start 01/26/19 at 09:00 Albuterol/ Ipratropium (Duoneb) 3 ml QID NEB Last administered on 02/02/19at 20:37; Start 01/25/19 at 17:00 Levothyroxine Sodium (Synthroid) 137 mcg DAILY06 PO Last administered on 02/02/19 06:02; Start 01/26/19 at 06:00 Olanzapine (ZyPREXA ZYDIS) 2.5 mg PRN Q4HRS PRN PO ANXIETY / AGITATION Last a dministered on 01/31/19 15:52; Start 01/25/19 at 13:30 Rivastigmine (Exelon 13.3mg) 1 patch DAILY TD Last administered on 02/02/19 12:10; Start 01/26/19 at 09:00 Sertraline HCl (Zoloft) 50 mg DAILY PO Last administered on 02/01/19 07:53; Start 01/26/19 at 09:00; Stop 02/01/19 at 16:43; Status DC Tamsulosin HCl (Flomax) 0.4 mg DAILY PO Last administered on 02/02/19 12:08; Start 01/26/19 at 09:00 Non-Formulary Medication (Budesonide (Pulmicort)) 0.5 mg RTBID NEB ; Start 01/25/19 at 20:00; Stop 01/25/19 at 20:00; Status DC Calcium/Vitamin D (Oscal D 500mg/ 200uts) 1 tab DAILY PO Last administered on 02/02/19 12:09; Start 01/26/19 at 09:00 Vitamin D (Vitamin D3) 50,000 unit WEEKLY PO Last administered on 01/28/19 08:05; Start 01/28/19 at 09:00 Divalproex Sodium (Depakote Sprinkles) 250 mg BID PO Last administered on 02/02/19 19:28; Start 01/25/19 at 21:00 Ferrous Sulfate (Feosol) 325 mg DAILYWBKFT PO Last administered on 02/02/19 12:07; Start 01/26/19 at 08:00 Glucosamine Sulfate (Glucosamine) 1,000 mg DAILY PO Last administered on 02/02/19 12:09; Start 01/26/19 at 09:00 Haloperidol Lactate (Haldol) 5 mg PRN Q4HRS PRN IM ANXIETY/AGITATION; Start 01/25/19 at 13:45 Lactobacillus Rhamnosus (Culturelle) 1 cap BID PO Last administered on 02/02/19 19:29; Start 01/25/19 at 21:00 Non-Formulary Medication (Mag Hydrox/Al Hydrox/Simeth (Advanced Antacid Liquid)) 15 ml PRN AFTMEALHC PRN PO DYSPEPSIA; Start 01/25/19 at 13:30; Stop 01/25/19 at 13:47; Status DC Non-Formulary Medication (Magnesium Hydroxide (Milk Of Magnesia)) 2,400 mg PRN QHS PRN PO CONSTIPATION; Start 01/25/19 at 13:30; Stop 01/25/19 at 13:47; Status DC Non-Formulary Medication (Methyl Salicylate/Menth/ Camph (Pain-Relief Cream)) 1 amy PRN BID PRN TP foot pain; Start 01/25/19 at 13:30; Stop 01/25/19 at 13:47; Status DC Multivitamins/ Calcium (Thera-M Plus) 1 tab DAILY PO Last administered on 02/02/19 12:09; Start 01/26/19 at 09:00 Nystatin/ Triamcinolone Acetonide (Mycolog Ii) 1 amy BID TP Last administered on 01/27/19 08:16; Start 01/25/19 at 21:00; Stop 01/27/19 at 17:01; Status DC Olanzapine (ZyPREXA ZYDIS) 10 mg QHS PO Last administered on 02/02/19 19:28; Start 01/25/19 at 21:00 Trazodone HCl (Desyrel) 150 mg QHS PO Last administered on 02/02/19 19:29; Start 01/25/19 at 21:00 Budesonide (Pulmicort) 0.5 mg RTBID NEB Last administered on 02/02/19 20:38; Start 01/25/19 at 20:00 Mirtazapine (Remeron) 7.5 mg QHS PO Last administered on 02/02/19 19:29; Start 01/26/19 at 21:00 Nystatin/ Triamcinolone Acetonide (Mycolog Ii) 1 amy PRN BID PRN TP AFFECTED AREA; Start 01/27/19 at 21:00 Sertraline HCl (Zoloft) 75 mg DAILY PO Last administered on 02/02/19at 12:12; Start 02/02/19 at 09:00 Active Scripts Active Reported Haloperidol 5 Mg Tablet 5 Mg IM PRN Q4HRS PRN Zyprexa Zydis (Olanzapine) 10 Mg Tab.rapdis 10 Mg PO QHS Zyprexa Zydis (Olanzapine) 5 Mg Tab.rapdis 2.5 Mg PO PRN Q4HRS PRN Milk Of Magnesia (Magnesium Hydroxide) 2,400 Mg/10 Ml Oral.susp 2,400 Mg PO PRN QHS PRN Advanced Antacid Liquid (Mag Hydrox/Al Hydrox/Simeth) 355 Ml Oral.susp 15 Ml PO PRN AFTMEALHC PRN Culturelle (Lactobacillus Rhamnosus Gg) 1 Each Capsule 1 Each PO BID Duoneb 0.5-3(2.5) Mg/3 Ml (Albuterol/Ipratropium) 3 Ml Ampul.neb 3 Ml NEB QID Depakote Sprinkle (Divalproex Sodium) 125 Mg Cap.sprink 250 Mg PO BID Vitamin D3 (Cholecalciferol (Vitamin D3)) 5,000 Unit Tablet 50,000 Unit PO WEEKLY Calcium 500 + Vit D 400 Tablet (Calcium Carbonate/Vitamin D3) 1 Each Tablet 1 Each PO DAILY Pulmicort (Budesonide) 0.5 Mg/2 Ml Ampul.neb 0.5 Mg NEB RTBID Tylenol (Acetaminophen) 325 Mg Tablet 650 Mg PO PRN Q6HRS PRN Multivitamins (Multivitamin) 1 Each Tablet 1 Each PO DAILY Nystatin-Triamcinolone Cream (Nystatin/Triamcin) 15 Gm Cream..g. 1 Amy TP BID Guaifenesin 200 Mg Tablet 200 Mg PO DAILY Glucosamine (Glucosamine Sulfate 2KCL) 1,000 Mg Tablet 1,000 Mg PO DAILY Flomax (Tamsulosin Hcl) 0.4 Mg Cap.er.24h 0.4 Mg PO DAILY Zoloft (Sertraline Hcl) 50 Mg Tablet 50 Mg PO DAILY EXELON 13.3mg/24hr (Rivastigmine) 1 Each Patch.td24 1 Patch TD DAILY Pain-Relief Cream (Methyl Salicylate/Menth/Camph) 113.3 Gm Cream..g. 1 Amy TP PRN BID PRN Levothyroxine Sodium 137 Mcg Tablet 137 Mcg PO DAILYAC Ferrous Gluconate 324 Mg Tablet 324 Mg PO DAILY Proair Hfa Inhaler (Albuterol Sulfate) 8.5 Gm Hfa.aer.ad 1 Puff INH PRN Q6HRS PRN Trazodone Hcl 50 Mg Tablet 150 Mg PO QHS I have reviewed the current psychotropics carefully including drug interactions. Risk benefit ratio favors no change other than as noted in my dictated progress note. Diagnosis: Problems: (1) Anxiety disorder (2) Impulse control disorder (3) Dementia, vascular, with depression (4) Dementia, vascular, with delusions (5) Dementia in Alzheimer's disease with depression (6) Dementia in Alzheimer's disease with delusions (7) Dementia with behavioral disturbance MYLES SHORT MD February 02, 2019 22:14
[2019-02-03] MEDS: IPRATRPIUM/ALBUTEROL 0.5/2.5MG 3 ML NEBU. NEB SCH ×4 (04:59→20:32)
[2019-02-03] MEDS: BUDESONIDE 0.5 MG/2 ML NEBU NEB SCH ×2 (04:59→20:33)
[2019-02-03 05:10] VITALS: BP 130/87
[2019-02-03] MEDS: LEVOTHYROXINE 137 MCG TABLET PO SCH (05:17)
[2019-02-03] MEDS: LACTOBACILLUS RHAMNOSUS GG 1 CAPSULE. PO SCH ×2 (08:55→19:31)
[2019-02-03] MEDS: RIVASTIGMINE 13.3MG PATCH. TD SCH (08:55)
[2019-02-03] MEDS: DIVALPROEX 125 MG CAP.SPRINK PO SCH ×2 (08:55→19:31)
[2019-02-03] MEDS: SERTRALINE 50 MG TABLET. PO SCH (08:56)
[2019-02-03] MEDS: TAMSULOSIN 0.4 MG CAP.ER.24H. PO SCH (08:57)
[2019-02-03] MEDS: FERROUS SULFATE 325 MG TABLET. PO SCH (08:57)
[2019-02-03] MEDS: MULTIVITAMIN with MINERAL TABLET. PO SCH (08:57)
[2019-02-03] MEDS: CALCIUM CARB/VIT D3 500/200 TABLET PO SCH (08:57)
[2019-02-03] MEDS: GLUCOSAMINE 500 MG CAPSULE PO SCH (08:57)
[2019-02-03] MEDS: ACETAMINOPHEN 325 MG TABLET PO PRN (13:08)
[2019-02-03 16:14] VITALS: BP 107/72
[2019-02-03] MEDS: MIRTAZAPINE 7.5 MG TABLET. PO SCH (19:31)
[2019-02-03] MEDS: traZODone 150 MG TABLET. PO SCH (19:33)
--- NOTE | 2019-02-03 22:25 | PDOC ---
Exam Note: Tony Note: Please also refer to the separate dictated note~for this date of service dictated separately.~Patient seen individually. Discussed the patient with Nursing staff reviewed the chart.~Reviewed interim history and current functioning. Reviewed vital signs,~Labs/ Radiology~and current medications noted below. Continue current treatment with the changes noted in the dictated addendum note Assessment: Vital Signs: Vital Signs Date Time Temp Pulse Resp B/P (MAP) Pulse Ox O2 Delivery O2 Flow Rate FiO2 02/03/19 20:36 Room Air 02/03/19 16:14 97.7 76 18 107/72 (84) 93 02/03/19 05:10 2.0 I&O Intake and Output 02/03/19 06:59 Intake Total 1500 ml Balance 1500 ml Intake Oral 1500 ml Current Medications: Meds: Current Medications Acetaminophen (Tylenol) 650 mg PRN Q6HRS PRN PO PAIN / TEMP; Start 01/25/19 at 12:30; Stop 01/25/19 at 13:54; Status DC Multi-Ingredient Ointment (Analgesic [place]) 1 amy PRN QID PRN TP MUSCLE PAIN; Start 01/25/19 at 12:30 Al Hydroxide/Mg Hydroxide (Mylanta Plus Xs) 15 ml PRN AFTMEALHC PRN PO DYSPEPS [place]; Start 01/25/19 at 12:30 Magnesium Hydroxide (Milk Of Magnesia) 2,400 mg PRN QHS PRN PO CONSTIPATION; Start 01/25/19 at 12:30 Acetaminophen (Tylenol) 650 mg PRN Q6HRS PRN PO PAIN / TEMP Last administered on 02/03/19at 13:08; Start 01/25/19 at 13:30 Albuterol Sulfate (Ventolin) 2.5 mg PRN Q6HRS PRN INH SHORTNESS OF BREATH; Start 01/25/19 at 13:30 Guaifenesin (Guaifenesin) 200 mg DAILY PO Last administered on 02/03/19at 08:58; Start 01/26/19 at 09:00 Albuterol/ Ipratropium (Duoneb) 3 ml QID NEB Last administered on 02/03/19at 20:32; Start 01/25/19 at 17:00 Levothyroxine Sodium (Synthroid) 137 mcg DAILY06 PO Last administered on 02/03/19at 05:17; Start 01/26/19 at 06:00 Olanzapine (ZyPREXA ZYDIS) 2.5 mg PRN Q4HRS PRN PO ANXIETY / AGITATION Last administered on 02/03/19 10:32; Start 01/25/19 at 13:30 Rivastigmine (Exelon 13.3mg) 1 patch DAILY TD Last administered on 02/03/19 08:55; Start 01/26/19 at 09:00 Sertraline HCl (Zoloft) 50 mg DAILY PO Last administered on 02/01/19 07:53; Start 01/26/19 at 09:00; Stop 02/01/19 at 16:43; Status DC Tamsulosin HCl (Flomax) 0.4 mg DAILY PO Last administered on 02/03/19 08:57; Start 01/26/19 at 09:00 Non-Formulary Medication (Budesonide (Pulmicort)) 0.5 mg RTBID NEB ; Start 01/25/19 at 20:00; Stop 01/25/19 at 20:00; Status DC Calcium/Vitamin D (Oscal D 500mg/ 200uts) 1 tab DAILY PO Last administered on 02/03/19 08:57; Start 01/26/19 at 09:00 Vitamin D (Vitamin D3) 50,000 unit WEEKLY PO Last administered on 01/28/19 08:05; Start 01/28/19 at 09:00 Divalproex Sodium (Depakote Sprinkles) 250 mg BID PO Last administered on 02/03/19 08:55; Start 01/25/19 at 21:00; Stop 02/03/19 at 16:42; Status DC Ferrous Sulfate (Feosol) 325 mg DAILYWBKFT PO Last administered on 02/03/19 08:57; Start 01/26/19 at 08:00 Glucosamine Sulfate (Glucosamine) 1,000 mg DAILY PO Last administered on 02/03/19 08:57; Start 01/26/19 at 09:00 Haloperidol Lactate (Haldol) 5 mg PRN Q4HRS PRN IM ANXIETY/AGITATION Last administered on 02/03/19 11:37; Start 01/25/19 at 13:45 Lactobacillus Rhamnosus (Culturelle) 1 cap BID PO Last administered on 02/03/19 19:31; Start 01/25/19 at 21:00 Non-Formulary Medication (Mag Hydrox/Al Hydrox/Simeth (Advanced Antacid Liquid)) 15 ml PRN AFTMEALHC PRN PO DYSPEPSIA; Start 01/25/19 at 13:30; Stop 01/25/19 at 13:47; Status DC Non-Formulary Medication (Magnesium Hydroxide (Milk Of Magnesia)) 2,400 mg PRN QHS PRN PO CONSTIPATION; Start 01/25/19 at 13:30; Stop 01/25/19 at 13:47; Status DC Non-Formulary Medication (Methyl Salicylate/Menth/ Camph (Pain-Relief Cream)) 1 amy PRN BID PRN TP foot pain; Start 01/25/19 at 13:30; Stop 01/25/19 at 13:47; Status DC Multivitamins/ Calcium (Thera-M Plus) 1 tab DAILY PO Last administered on 02/03/19 08:57; Start 01/26/19 at 09:00 Nystatin/ Triamcinolone Acetonide (Mycolog Ii) 1 amy BID TP Last administered on 01/27/19 08:16; Start 01/25/19 at 21:00; Stop 01/27/19 at 17:01; Status DC Olanzapine (ZyPREXA ZYDIS) 10 mg QHS PO Last administered on 02/03/19 19:31; Start 01/25/19 at 21:00 Trazodone HCl (Desyrel) 150 mg QHS PO Last administered on 02/03/19 19:33; Start 01/25/19 at 21:00 Budesonide (Pulmicort) 0.5 mg RTBID NEB Last administered on 02/03/19 20:33; Start 01/25/19 at 20:00 Mirtazapine (Remeron) 7.5 mg QHS PO Last administered on 02/03/19 19:31; Start 01/26/19 at 21:00 Nystatin/ Triamcinolone Acetonide (Mycolog Ii) 1 amy PRN BID PRN TP AFFECTED AREA; Start 01/27/19 at 21:00 Sertraline HCl (Zoloft) 75 mg DAILY PO Last administered on 02/03/19 08:56; Start 02/02/19 at 09:00 Divalproex Sodium (Depakote Sprinkles) 375 mg BID PO Last administered on 02/03/19at 19:31; Start 02/03/19 at 21:00 Active Scripts Active Reported Haloperidol 5 Mg Tablet 5 Mg IM PRN Q4HRS PRN Zyprexa Zydis (Olanzapine) 10 Mg Tab.rapdis 10 Mg PO QHS Zyprexa Zydis (Olanzapine) 5 Mg Tab.rapdis 2.5 Mg PO PRN Q4HRS PRN Milk Of Magnesia (Magnesium Hydroxide) 2,400 Mg/10 Ml Oral.susp 2,400 Mg PO PRN QHS PRN Advanced Antacid Liquid (Mag Hydrox/Al Hydrox/Simeth) 355 Ml Oral.susp 15 Ml PO PRN AFTMEALHC PRN Culturelle (Lactobacillus Rhamnosus Gg) 1 Each Capsule 1 Each PO BID Duoneb 0.5-3(2.5) Mg/3 Ml (Albuterol/Ipratropium) 3 Ml Ampul.neb 3 Ml NEB QID Depakote Sprinkle (Divalproex Sodium) 125 Mg Cap.sprink 250 Mg PO BID Vitamin D3 (Cholecalciferol (Vitamin D3)) 5,000 Unit Tablet 50,000 Unit PO WEEKLY Calcium 500 + Vit D 400 Tablet (Calcium Carbonate/Vitamin D3) 1 Each Tablet 1 Each PO DAILY Pulmicort (Budesonide) 0.5 Mg/2 Ml Ampul.neb 0.5 Mg NEB RTBID Tylenol (Acetaminophen) 325 Mg Tablet 650 Mg PO PRN Q6HRS PRN Multivitamins (Multivitamin) 1 Each Tablet 1 Each PO DAILY Nystatin-Triamcinolone Cream (Nystatin/Triamcin) 15 Gm Cream..g. 1 Amy TP BID Guaifenesin 200 Mg Tablet 200 Mg PO DAILY Glucosamine (Glucosamine Sulfate 2KCL) 1,000 Mg Tablet 1,000 Mg PO DAILY Flomax (Tamsulosin Hcl) 0.4 Mg Cap.er.24h 0.4 Mg PO DAILY Zoloft (Sertraline Hcl) 50 Mg Tablet 50 Mg PO DAILY EXELON 13.3mg/24hr (Rivastigmine) 1 Each Patch.td24 1 Patch TD DAILY Pain-Relief Cream (Methyl Salicylate/Menth/Camph) 113.3 Gm Cream..g. 1 Amy TP PRN BID PRN Levothyroxine Sodium 137 Mcg Tablet 137 Mcg PO DAILYAC Ferrous Gluconate 324 Mg Tablet 324 Mg PO DAILY Proair Hfa Inhaler (Albuterol Sulfate) 8.5 Gm Hfa.aer.ad 1 Puff INH PRN Q6HRS PRN Trazodone Hcl 50 Mg Tablet 150 Mg PO QHS I have reviewed the current psychotropics carefully including drug interactions. Risk benefit ratio favors no change other than as noted in my dictated progress note. Diagnosis: Problems: (1) Anxiety disorder (2) Impulse control disorder (3) Dementia, vascular, with depression (4) Dementia, vascular, with delusions (5) Dementia in Alzheimer's disease with depression (6) Dementia in Alzheimer's disease with delusions (7) Dementia with behavioral disturbance MYLES SHORT MD February 03, 2019 22:25
--- NOTE | 2019-02-03 23:05 | PN ---
DATE: 02/01/2019 PSYCHIATRIC PROGRESS NOTE This late entry 02/01/2019 covers elements not covered in my initial note. SUBJECTIVE: I met with the patient in the evening. The patient slept 7 hours previous night. He remains confused, somewhat exit seeking, wanting to go home to [place]. Valproic acid level is 32 on the 01/31/2019. REVIEW OF SYSTEMS: No CV, , pulmonary, eye, ENT system symptoms on review. Reliability poor. MENTAL STATUS EXAM: Oriented to himself. Insight, judgment, recent and remote memory, attention, concentration, fund of knowledge poor, consistent with his diagnosis mentioned in my initial note. PLAN: No change from initial note, but we will increase the Zoloft from 50 mg a day to 75 mg a day to help with his mood, anxiety, irritability symptoms. Continue rest unchanged. May need to increase Depakote to reach therapeutic level if mood lability persist despite all of this. MAN Leyla SHORT MD DR: RICHARD/ruiz JOB#: [id number] / [id number]
--- NOTE | 2019-02-03 23:07 | PN ---
DATE: 02/02/2019 PSYCHIATRIC PROGRESS NOTE This late entry 02/02/2019 covers elements not covered in my initial note. SUBJECTIVE: I met with the patient in the evening and staffed at a treatment team meeting with the entire team in the morning. The patient slept 7 hours, on average 5-1/4 hours, previous night. He remains confused. Addressed his history, diagnosis, placement at [facility] at the treatment team meeting. He is much more pleasant, less paranoid. Appetite 100%. REVIEW OF SYSTEMS: No CV, , pulmonary, eye, ENT system symptoms on review. Reliability poor. MENTAL STATUS EXAM: Oriented to himself. Insight, judgment, recent and remote memory, attention, concentration, fund of knowledge poor, consistent with his diagnosis mentioned in my initial note. PLAN: No change from initial note. Continue current psychotropics. May need to increase Depakote further to reach a therapeutic level, but we have just increased the Zoloft and we will see how he does with this before deciding on the next change. MAN Leyla SHORT MD DR: RICHARD/ruiz JOB#: [id number] / [id number]
[2019-02-04] MEDS: ACETAMINOPHEN 325 MG TABLET PO PRN (00:01)
[2019-02-04] MEDS: IPRATRPIUM/ALBUTEROL 0.5/2.5MG 3 ML NEBU. NEB SCH ×5 (05:06→20:20)
[2019-02-04] MEDS: BUDESONIDE 0.5 MG/2 ML NEBU NEB SCH ×3 (05:06→20:20)
[2019-02-04] MEDS: LEVOTHYROXINE 137 MCG TABLET PO SCH (05:07)
[2019-02-04 06:21] VITALS: BP 133/82
[2019-02-04] MEDS: LACTOBACILLUS RHAMNOSUS GG 1 CAPSULE. PO SCH ×2 (08:08→19:18)
[2019-02-04] MEDS: FERROUS SULFATE 325 MG TABLET. PO SCH (08:08)
[2019-02-04] MEDS: MULTIVITAMIN with MINERAL TABLET. PO SCH (08:09)
[2019-02-04] MEDS: CHOLECALCIFEROL (VITAMIN D3) 50,000 UNIT CAPSULE PO SCH (08:09)
[2019-02-04] MEDS: DIVALPROEX 125 MG CAP.SPRINK PO SCH ×2 (08:09→19:18)
[2019-02-04] MEDS: CALCIUM CARB/VIT D3 500/200 TABLET PO SCH (08:09)
[2019-02-04] MEDS: TAMSULOSIN 0.4 MG CAP.ER.24H. PO SCH (08:09)
[2019-02-04] MEDS: GLUCOSAMINE 500 MG CAPSULE PO SCH (08:09)
[2019-02-04] MEDS: RIVASTIGMINE 13.3MG PATCH. TD SCH (08:10)
[2019-02-04] MEDS: SERTRALINE 50 MG TABLET. PO SCH (08:10)
[2019-02-04 16:33] VITALS: BP 120/81
[2019-02-04 16:45] LABS: BACTERIA,URINE 0 /HPF (0-FEW); BILIRUBIN,URINE NEG (NEG); CLARITY,URINE HAZY; COLOR,URINE STRAW; GLUCOSE,URINE NEG (NEG); NITRITE,URINE NEG (NEG); RBC,URINE 0 /HPF (0-2); SQUAMOUS EPITHELIAL CELL,UR OCC /LPF; UROBILINOGEN,URINE 0.2 mg/dL (0.2 mg/dL); WBC,URINE OCC /HPF (0-4)
[2019-02-04] MEDS: traZODone 150 MG TABLET. PO SCH (19:16)
[2019-02-04] MEDS: MIRTAZAPINE 7.5 MG TABLET. PO SCH (19:18)
--- NOTE | 2019-02-04 22:27 | PDOC ---
Exam Note: Tony Note: Please also refer to the separate dictated note~for this date of service dictated separately.~Patient seen individually. Discussed the patient with Nursing staff reviewed the chart.~Reviewed interim history and current functioning. Reviewed vital signs,~Labs/ Radiology~and current medications noted below. Continue current treatment with the changes noted in the dictated addendum note Assessment: Vital Signs: Vital Signs Date Time Temp Pulse Resp B/P (MAP) Pulse Ox O2 Delivery O2 Flow Rate FiO2 02/04/19 20:25 Room Air 02/04/19 16:33 97.1 80 20 120/81 (94) 98 02/03/19 05:10 2.0 I&O Intake and Output 02/04/19 06:59 Intake Total 965 ml Balance 965 ml Intake Oral 965 ml # Voids 3 Labs: Laboratory Tests Test 02/04/19 16:18 Urine Collection Type Unknown Urine Color Straw Urine Clarity Hazy Urine pH 6.5 Urine Specific [place] 1.015 Urine Protein Neg (NEG-TRACE) Urine Glucose (UA) Neg mg/dL (NEG) Urine Ketones (Stick) Neg mg/dL (NEG) Urine Blood Neg (NEG) Urine Nitrite Neg (NEG) Urine Bilirubin Neg (NEG) Urine Urobilinogen Dipstick 0.2 mg/dL (0.2 mg/dL) Urine Leukocyte Esterase Trace (NEG) Urine RBC 0 /HPF (0-2) Urine WBC Occ /HPF (0-4) Urine Squamous Epithelial Cells Occ /LPF Urine Bacteria 0 /HPF (0-FEW) Current Medications: Meds: Current Medications Acetaminophen (Tylenol) 650 mg PRN Q6HRS PRN PO PAIN / TEMP; Start 01/25/19 at 12:30; Stop 01/25/19 at 13:54; Status DC Multi-Ingredient Ointment (Analgesic [place]) 1 amy PRN QID PRN TP MUSCLE PAIN; Start 01/25/19 at 12:30 Al Hydroxide/Mg Hydroxide (Mylanta Plus Xs) 15 ml PRN AFTMEALHC PRN PO DYSPEPSIA; Start 01/25/19 at 12:30 Magnesium Hydroxide (Milk Of Magnesia) 2,400 mg PRN QHS PRN PO CONSTIPATION; Start 01/25/19 at 12:30 Acetaminophen (Tylenol) 650 mg PRN Q6HRS PRN PO PAIN / TEMP Last administered on 02/04/19 00:01; Start 01/25/19 at 13:30 Albuterol Sulfate (Ventolin) 2.5 mg PRN Q6HRS PRN INH SHORTNESS OF BREATH; Start 01/25/19 at 13:30 Guaifenesin (Guaifenesin) 200 mg DAILY PO Last administered on 02/04/19 08:09; Start 01/26/19 at 09:00 Albuterol/ Ipratropium (Duoneb) 3 ml QID NEB Last administered on 02/04/19 20:20; Start 01/25/19 at 17:00 Levothyroxine Sodium (Synthroid) 137 mcg DAILY06 PO Last administered on 02/04/19 05:07; Start 01/26/19 at 06:00 Olanzapine (ZyPREXA ZYDIS) 2.5 mg PRN Q4HRS PRN PO ANXIETY / AGITATION Last administered on 02/04/19 18:39; Start 01/25/19 at 13:30 Rivastigmine (Exelon 13.3mg) 1 patch DAILY TD Last administered on 02/04/19 08:10; Start 01/26/19 at 09:00 Sertraline HCl (Zoloft) 50 mg DAILY PO Last administered on 02/01/19 07:53; Start 01/26/19 at 09:00; Stop 02/01/19 at 16:43; Status DC Tamsulosin HCl (Flomax) 0.4 mg DAILY PO Last administered on 02/04/19 08:09; Start 01/26/19 at 09:00 Non-Formulary Medication (Budesonide (Pulmicort)) 0.5 mg RTBID NEB ; Start 01/25/19 at 20:00; Stop 01/25/19 at 20:00; Status DC Calcium/Vitamin D (Oscal D 500mg/ 200uts) 1 tab DAILY PO Last administered on 02/04/19 08:09; Start 01/26/19 at 09:00 Vitamin D (Vitamin D3) 50,000 unit WEEKLY PO Last administered on 02/04/19 08:09; Start 01/28/19 at 09:00 Divalproex Sodium (Depakote Sprinkles) 250 mg BID PO Last administered on 02/03/19 08:55; Start 01/25/19 at 21:00; Stop 02/03/19 at 16:42; Status DC Ferrous Sulfate (Feosol) 325 mg DAILYWBKFT PO Last administered on 02/04/19 08:08; Start 01/26/19 at 08:00 Glucosamine Sulfate (Glucosamine) 1,000 mg DAILY PO Last administered on 02/04/19 08:09; Start 01/26/19 at 09:00 Haloperidol Lactate (Haldol) 5 mg PRN Q4HRS PRN IM ANXIETY/AGITATION Last administered on 02/03/19 11:37; Start 01/25/19 at 13:45 Lactobacillus Rhamnosus (Culturelle) 1 cap BID PO Last administered on 02/04/19 19:18; Start 01/25/19 at 21:00 Non-Formulary Medication (Mag Hydrox/Al Hydrox/Simeth (Advanced Antacid Liquid)) 15 ml PRN AFTMEALHC PRN PO DYSPEPSIA; Start 01/25/19 at 13:30; Stop 01/25/19 at 13:47; Status DC Non-Formulary Medication (Magnesium Hydroxide (Milk Of Magnesia)) 2,400 mg PRN QHS PRN PO CONSTIPATION; Start 01/25/19 at 13:30; Stop 01/25/19 at 13:47; Status DC Non-Formulary Medication (Methyl Salicylate/Menth/ Camph (Pain-Relief Cream)) 1 amy PRN BID PRN TP foot pain; Start 01/25/19 at 13:30; Stop 01/25/19 at 13:47; Status DC Multivitamins/ Calcium (Thera-M Plus) 1 tab DAILY PO Last administered on 02/04/19 08:09; Start 01/26/19 at 09:00 Nystatin/ Triamcinolone Acetonide (Mycolog Ii) 1 amy BID TP Last administered on 01/27/19 08:16; Start 01/25/19 at 21:00; Stop 01/27/19 at 17:01; Status DC Olanzapine (ZyPREXA ZYDIS) 10 mg QHS PO Last administered on 02/04/19 19:16; Start 01/25/19 at 21:00 Trazodone HCl (Desyrel) 150 mg QHS PO Last administered on 6/1/19at 19:16; Start 01/25/19 at 21:00 Budesonide (Pulmicort) 0.5 mg RTBID NEB Last administered on 02/04/19at 20:20; Start 01/25/19 at 20:00 Mirtazapine (Remeron) 7.5 mg QHS PO Last administered on 02/04/19at 19:18; Start 01/26/19 at 21:00 Nystatin/ Triamcinolone Acetonide (Mycolog Ii) 1 amy PRN BID PRN TP AFFECTED AREA; Start 01/27/19 at 21:00 Sertraline HCl (Zoloft) 75 mg DAILY PO Last administered on 02/04/19at 08:10; Start 02/02/19 at 09:00 Divalproex Sodium (Depakote Sprinkles) 375 mg BID PO Last administered on 02/04/19at 19:18; Start 02/03/19 at 21:00 Active Scripts Active Reported Haloperidol 5 Mg Tablet 5 Mg IM PRN Q4HRS PRN Zyprexa Zydis (Olanzapine) 10 Mg Tab.rapdis 10 Mg PO QHS Zyprexa Zydis (Olanzapine) 5 Mg Tab.rapdis 2.5 Mg PO PRN Q4HRS PRN Milk Of Magnesia (Magnesium Hydroxide) 2,400 Mg/10 Ml Oral.susp 2,400 Mg PO PRN QHS PRN Advanced Antacid Liquid (Mag Hydrox/Al Hydrox/Simeth) 355 Ml Oral.susp 15 Ml PO PRN AFTMEALHC PRN Culturelle (Lactobacillus Rhamnosus Gg) 1 Each Capsule 1 Each PO BID Duoneb 0.5-3(2.5) Mg/3 Ml (Albuterol/Ipratropium) 3 Ml Ampul.neb 3 Ml NEB QID Depakote Sprinkle (Divalproex Sodium) 125 Mg Cap.sprink 250 Mg PO BID Vitamin D3 (Cholecalciferol (Vitamin D3)) 5,000 Unit Tablet 50,000 Unit PO WE EKLY Calcium 500 + Vit D 400 Tablet (Calcium Carbonate/Vitamin D3) 1 Each Tablet 1 Each PO DAILY Pulmicort (Budesonide) 0.5 Mg/2 Ml Ampul.neb 0.5 Mg NEB RTBID Tylenol (Acetaminophen) 325 Mg Tablet 650 Mg PO PRN Q6HRS PRN Multivitamins (Multivitamin) 1 Each Tablet 1 Each PO DAILY Nystatin-Triamcinolone Cream (Nystatin/Triamcin) 15 Gm Cream..g. 1 Amy TP BID Guaifenesin 200 Mg Tablet 200 Mg PO DAILY Glucosamine (Glucosamine Sulfate 2KCL) 1,000 Mg Tablet 1,000 Mg PO DAILY Flomax (Tamsulosin Hcl) 0.4 Mg Cap.er.24h 0.4 Mg PO DAILY Zoloft (Sertraline Hcl) 50 Mg Tablet 50 Mg PO DAILY EXELON 13.3mg/24hr (Rivastigmine) 1 Each Patch.td24 1 Patch TD DAILY Pain-Relief Cream (Methyl Salicylate/Menth/Camph) 113.3 Gm Cream..g. 1 Amy TP PRN BID PRN Levothyroxine Sodium 137 Mcg Tablet 137 Mcg PO DAILYAC Ferrous Gluconate 324 Mg Tablet 324 Mg PO DAILY Proair Hfa Inhaler (Albuterol Sulfate) 8.5 Gm Hfa.aer.ad 1 Puff INH PRN Q6HRS PRN Trazodone Hcl 50 Mg Tablet 150 Mg PO QHS I have reviewed the current psychotropics carefully including drug interactions. Risk benefit ratio favors no change other than as noted in my dictated progress note. Diagnosis: Problems: (1) Anxiety disorder (2) Impulse control disorder (3) Dementia, vascular, with depression (4) Dementia, vascular, with delusions (5) Dementia in Alzheimer's disease with depression (6) Dementia in Alzheimer's disease with delusions (7) Acute and chronic respiratory failure with hypoxia (8) Obstructive sleep apnea (9) Dementia with behavioral disturbance MYLES SHORT MD Feb 04, 2019 22:27
[2019-02-05] MEDS: IPRATRPIUM/ALBUTEROL 0.5/2.5MG 3 ML NEBU. NEB SCH ×3 (04:50→20:08)
[2019-02-05] MEDS: LEVOTHYROXINE 137 MCG TABLET PO SCH (05:07)
[2019-02-05 05:55] VITALS: BP 133/96
[2019-02-05] MEDS: CALCIUM CARB/VIT D3 500/200 TABLET PO SCH (07:46)
[2019-02-05] MEDS: DIVALPROEX 125 MG CAP.SPRINK PO SCH ×2 (07:46→19:47)
[2019-02-05] MEDS: GLUCOSAMINE 500 MG CAPSULE PO SCH (07:47)
[2019-02-05] MEDS: FERROUS SULFATE 325 MG TABLET. PO SCH (07:47)
[2019-02-05] MEDS: LACTOBACILLUS RHAMNOSUS GG 1 CAPSULE. PO SCH ×2 (07:47→19:46)
[2019-02-05] MEDS: TAMSULOSIN 0.4 MG CAP.ER.24H. PO SCH (07:47)
[2019-02-05] MEDS: MULTIVITAMIN with MINERAL TABLET. PO SCH (07:48)
[2019-02-05] MEDS: RIVASTIGMINE 13.3MG PATCH. TD SCH (07:48)
[2019-02-05] MEDS: SERTRALINE 50 MG TABLET. PO SCH (07:48)
[2019-02-05 16:07] VITALS: BP 115/76
[2019-02-05] MEDS: MIRTAZAPINE 7.5 MG TABLET. PO SCH (19:46)
[2019-02-05] MEDS: traZODone 150 MG TABLET. PO SCH (19:47)
[2019-02-05] MEDS: BUDESONIDE 0.5 MG/2 ML NEBU NEB SCH (20:08)
--- NOTE | 2019-02-05 22:31 | PDOC ---
Exam Note: Tony Note: Please also refer to the separate dictated note~for this date of service dictated separately.~Patient seen individually. Discussed the patient with Nursing staff reviewed the chart.~Reviewed interim history and current functioning. Reviewed vital signs,~Labs/ Radiology~and current medications noted below. Continue current treatment with the changes noted in the dictated addendum note Assessment: Vital Signs: Vital Signs Date Time Temp Pulse Resp B/P (MAP) Pulse Ox O2 Delivery O2 Flow Rate FiO2 02/05/19 16:07 97.5 101 18 115/76 (89) 92 02/05/19 11:32 Room Air 02/03/19 05:10 2.0 I&O Intake and Output 02/05/19 06:59 Intake Total 1080 ml Balance 1080 ml Intake Oral 1080 ml Current Medications: Meds: Current Medications Acetaminophen (Tylenol) 650 mg PRN Q6HRS PRN PO PAIN / TEMP; Start 01/25/19 at 12:30; Stop 01/25/19 at 13:54; Status DC Multi-Ingredient Ointment (Analgesic [place]) 1 amy PRN QID PRN TP MUSCLE PAIN; Start 01/25/19 at 12:30 Al Hydroxide/Mg Hydroxide (Mylanta Plus Xs) 15 ml PRN AFTMEALHC PRN PO DYSPEPSIA; Start 01/25/19 at 12:30 Magnesium Hydroxide (Milk Of Magnesia) 2,400 mg PRN QHS PRN PO CONSTIPATION Last administered on 02/05/19at 05:07; Start 01/25/19 at 12:30 Acetaminophen (Tylenol) 650 mg PRN Q6HRS PRN PO PAIN / TEMP Last administered on 02/04/19at 00:01; Start 01/25/19 at 13:30 Albuterol Sulfate (Ventolin) 2.5 mg PRN Q6HRS PRN INH SHORTNESS OF BREATH; Start 01/25/19 at 13:30 Guaifenesin (Guaifenesin) 200 mg DAILY PO Last administered on 02/05/19at 07:48; Start 01/26/19 at 09:00 Albuterol/ Ipratropium (Duoneb) 3 ml QID NEB Last administered on 02/05/19at 04:50; Start 01/25/19 at 17:00 Levothyroxine Sodium (Synthroid) 137 mcg DAILY06 PO Last administered on 02/05/19 05:07; Start 01/26/19 at 06:00 Olanzapine (ZyPREXA ZYDIS) 2.5 mg PRN Q4HRS PRN PO ANXIETY / AGITATION Last administered on 02/04/19 18:39; Start 01/25/19 at 13:30 Rivastigmine (Exelon 13.3mg) 1 patch DAILY TD Last administered on 02/05/19 07:48; Start 01/26/19 at 09:00 Sertraline HCl (Zoloft) 50 mg DAILY PO Last administered on 02/01/19 07:53; Start 01/26/19 at 09:00; Stop 02/01/19 at 16:43; Status DC Tamsulosin HCl (Flomax) 0.4 mg DAILY PO Last administered on 02/05/19 07:47; Start 01/26/19 at 09:00 Non-Formulary Medication (Budesonide (Pulmicort)) 0.5 mg RTBID NEB ; Start 01/25/19 at 20:00; Stop 01/25/19 at 20:00; Status DC Calcium/Vitamin D (Oscal D 500mg/ 200uts) 1 tab DAILY PO Last administered on 02/05/19 07:46; Start 01/26/19 at 09:00 Vitamin D (Vitamin D3) 50,000 unit WEEKLY PO Last administered on 02/04/19 08:09; Start 01/28/19 at 09:00 Divalproex Sodium (Depakote Sprinkles) 250 mg BID PO Last administered on 02/03/19 08:55; Start 01/25/19 at 21:00; Stop 02/03/19 at 16:42; Status DC Ferrous Sulfate (Feosol) 325 mg DAILYWBKFT PO Last administered on 02/05/19 07:47; Start 01/26/19 at 08:00 Glucosamine Sulfate (Glucosamine) 1,000 mg DAILY PO Last administered on 02/05/19 07:47; Start 01/26/19 at 09:00 Haloperidol Lactate (Haldol) 5 mg PRN Q4HRS PRN IM ANXIETY/AGITATION Last administered on 02/03/19 11:37; Start 01/25/19 at 13:45 Lactobacillus Rhamnosus (Culturelle) 1 cap BID PO Last administered on 02/05/19 19:46; Start 01/25/19 at 21:00 Non-Formulary Medication (Mag Hydrox/Al Hydrox/Simeth (Advanced Antacid Liquid)) 15 ml PRN AFTMEALHC PRN PO DYSPEPSIA; Start 01/25/19 at 13:30; Stop 01/25/19 at 13:47; Status DC Non-Formulary Medication (Magnesium Hydroxide (Milk Of Magnesia)) 2,400 mg PRN QHS PRN PO CONSTIPATION; Start 01/25/19 at 13:30; Stop 01/25/19 at 13:47; Status DC Non-Formulary Medication (Methyl Salicylate/Menth/ Camph (Pain-Relief Cream)) 1 amy PRN BID PRN TP foot pain; Start 01/25/19 at 13:30; Stop 01/25/19 at 13:47; Status DC Multivitamins/ Calcium (Thera-M Plus) 1 tab DAILY PO Last administered on 02/05/19 07:48; Start 01/26/19 at 09:00 Nystatin/ Triamcinolone Acetonide (Mycolog Ii) 1 amy BID TP Last administered on 01/27/19 08:16; Start 01/25/19 at 21:00; Stop 01/27/19 at 17:01; Status DC Olanzapine (ZyPREXA ZYDIS) 10 mg QHS PO Last administered on 02/05/19 19:47; Start 01/25/19 at 21:00 Trazodone HCl (Desyrel) 150 mg QHS PO Last administered on 02/05/19 19:47; Start 01/25/19 at 21:00 Budesonide (Pulmicort) 0.5 mg RTBID NEB Last administered on 02/04/19 20:20; Start 01/25/19 at 20:00 Mirtazapine (Remeron) 7.5 mg QHS PO Last administered on 02/05/19 19:46; Start 01/26/19 at 21:00 Nystatin/ Triamcinolone Acetonide (Mycolog Ii) 1 amy PRN BID PRN TP AFFECTED AREA; Start 01/27/19 at 21:00 Sertraline HCl (Zoloft) 75 mg DAILY PO Last administered on 6/2/19at 07:48; Start 02/02/19 at 09:00 Divalproex Sodium (Depakote Sprinkles) 375 mg BID PO Last administered on 02/05/19at 19:47; Start 02/03/19 at 21:00 Active Scripts Active Reported Haloperidol 5 Mg Tablet 5 Mg IM PRN Q4HRS PRN Zyprexa Zydis (Olanzapine) 10 Mg Tab.rapdis 10 Mg PO QHS Zyprexa Zydis (Olanzapine) 5 Mg Tab.rapdis 2.5 Mg PO PRN Q4HRS PRN Milk Of Magnesia (Magnesium Hydroxide) 2,400 Mg/10 Ml Oral.susp 2,400 Mg PO PRN QHS PRN Advanced Antacid Liquid (Mag Hydrox/Al Hydrox/Simeth) 355 Ml Oral.susp 15 Ml PO PRN AFTMEALHC PRN Culturelle (Lactobacillus Rhamnosus Gg) 1 Each Capsule 1 Each PO BID Duoneb 0.5-3(2.5) Mg/3 Ml (Albuterol/Ipratropium) 3 Ml Ampul.neb 3 Ml NEB QID Depakote Sprinkle (Divalproex Sodium) 125 Mg Cap.sprink 250 Mg PO BID Vitamin D3 (Cholecalciferol (Vitamin D3)) 5,000 Unit Tablet 50,000 Unit PO WEEKLY Calcium 500 + Vit D 400 Tablet (Calcium Carbonate/Vitamin D3) 1 Each Tablet 1 E ach PO DAILY Pulmicort (Budesonide) 0.5 Mg/2 Ml Ampul.neb 0.5 Mg NEB RTBID Tylenol (Acetaminophen) 325 Mg Tablet 650 Mg PO PRN Q6HRS PRN Multivitamins (Multivitamin) 1 Each Tablet 1 Each PO DAILY Nystatin-Triamcinolone Cream (Nystatin/Triamcin) 15 Gm Cream..g. 1 Amy TP BID Guaifenesin 200 Mg Tablet 200 Mg PO DAILY Glucosamine (Glucosamine Sulfate 2KCL) 1,000 Mg Tablet 1,000 Mg PO DAILY Flomax (Tamsulosin Hcl) 0.4 Mg Cap.er.24h 0.4 Mg PO DAILY Zoloft (Sertraline Hcl) 50 Mg Tablet 50 Mg PO DAILY EXELON 13.3mg/24hr (Rivastigmine) 1 Each Patch.td24 1 Patch TD DAILY Pain-Relief Cream (Methyl Salicylate/Menth/Camph) 113.3 Gm Cream..g. 1 Amy TP PRN BID PRN Levothyroxine Sodium 137 Mcg Tablet 137 Mcg PO DAILYAC Ferrous Gluconate 324 Mg Tablet 324 Mg PO DAILY Proair Hfa Inhaler (Albuterol Sulfate) 8.5 Gm Hfa.aer.ad 1 Puff INH PRN Q6HRS PRN Trazodone Hcl 50 Mg Tablet 150 Mg PO QHS I have reviewed the current psychotropics carefully including drug interactions. Risk benefit ratio favors no change other than as noted in my dictated progress note. Diagnosis: Problems: (1) Anxiety disorder (2) Impulse control disorder (3) Dementia, vascular, with depression (4) Dementia, vascular, with delusions (5) Dementia in Alzheimer's disease with depression (6) Dementia in Alzheimer's disease with delusions (7) Dementia with behavioral disturbance MYLES SHORT MD Feb 05, 2019 22:31
[2019-02-06] MEDS: IPRATRPIUM/ALBUTEROL 0.5/2.5MG 3 ML NEBU. NEB SCH ×4 (05:20→20:43)
[2019-02-06] MEDS: LEVOTHYROXINE 137 MCG TABLET PO SCH (05:48)
--- NOTE | 2019-02-06 05:50 | PN ---
DATE: 02/03/2019 PSYCHIATRIC PROGRESS NOTE This late entry 02/03/2019 covers elements not covered in my initial note. SUBJECTIVE: I met with the patient in the evening. The patient slept 5-1/2 hours previous night. He was compliant with his morning medications, but at 10:30 a.m., anxious, restless, wanting to leave, asked for a chair and tried to climb the fence. He had to be put in the [facility] to remove him from stimuli and was slamming on the doors. He was also complaining of his back hurting, received Tylenol, and then did better. REVIEW OF SYSTEMS: No CV, , pulmonary, eye, ENT system symptoms on review. Reliability poor. MENTAL STATUS EXAM: Oriented to himself. Insight, judgment, recent and remote memory, attention, concentration, fund of knowledge poor, consistent with his diagnosis mentioned in my initial note. PLAN: Continue current psychotropics, but given his ongoing mood lability, agitation and valproic acid level subtherapeutic at 32 on Depakote 250 b.i.d., we will go ahead and increase the Depakote to 375 b.i.d. Check CBC, CMP, valproic acid level in 3 days. Continue rest unchanged. MYLES SHORT MD DR: RICHARD/ruiz JOB#: [id number] / [id number]
[2019-02-06 06:12] VITALS: BP 140/86
--- NOTE | 2019-02-06 06:46 | PN ---
DATE: 02/04/2019 PSYCHIATRIC PROGRESS NOTE This late entry 02/04/2019 covers elements not covered in my initial note. SUBJECTIVE: I met with the patient in the evening. The patient slept 4 hours previous night. Remains confused, wandering, otherwise calm, cooperative, interactive. Med-compliant, exit seeking x 1. REVIEW OF SYSTEMS: No CV, , pulmonary, eye, ENT system symptoms on review. Reliability poor. MENTAL STATUS EXAM: Oriented to himself. Insight, judgment, recent and remote memory, attention, concentration, fund of knowledge poor, consistent with his diagnosis mentioned in my initial note. PLAN: No change from initial note. MAN Leyla SHORT MD DR: RICHARD/ruiz JOB#: [id number] / [id number]
--- NOTE | 2019-02-06 07:26 | PN ---
DATE: 02/05/2019 PSYCHIATRIC PROGRESS NOTE This note covers elements not covered in my initial note 02/05/2019. SUBJECTIVE: I met with the patient in the evening of 02/05/2019. The patient slept 6 hours previous night. He has been wandering, confused. REVIEW OF SYSTEMS: No CV, , pulmonary, eye, ENT system symptoms on review. Reliability poor. MENTAL STATUS EXAM: Oriented to himself. Insight, judgment, recent and remote memory, attention, concentration, fund of knowledge poor, consistent with his diagnosis mentioned in my initial note. PLAN: No change from initial note. MAN Leyla SHORT MD DR: RICHARD/ruiz JOB#: [id number] / [id number]
[2019-02-06] MEDS: BUDESONIDE 0.5 MG/2 ML NEBU NEB SCH ×2 (08:00→20:00)
[2019-02-06] MEDS: RIVASTIGMINE 13.3MG PATCH. TD SCH (08:05)
[2019-02-06] MEDS: MULTIVITAMIN with MINERAL TABLET. PO SCH (08:05)
[2019-02-06] MEDS: LACTOBACILLUS RHAMNOSUS GG 1 CAPSULE. PO SCH ×2 (08:06→19:25)
[2019-02-06] MEDS: SERTRALINE 50 MG TABLET. PO SCH (08:06)
[2019-02-06] MEDS: TAMSULOSIN 0.4 MG CAP.ER.24H. PO SCH (08:06)
[2019-02-06] MEDS: DIVALPROEX 125 MG CAP.SPRINK PO SCH ×2 (08:06→19:26)
[2019-02-06] MEDS: FERROUS SULFATE 325 MG TABLET. PO SCH (08:06)
[2019-02-06] MEDS: GLUCOSAMINE 500 MG CAPSULE PO SCH (08:07)
[2019-02-06] MEDS: CALCIUM CARB/VIT D3 500/200 TABLET PO SCH (08:10)
[2019-02-06 15:57] VITALS: BP 108/70
[2019-02-06] MEDS: MIRTAZAPINE 7.5 MG TABLET. PO SCH (19:25)
[2019-02-06] MEDS: traZODone 150 MG TABLET. PO SCH (19:25)
--- NOTE | 2019-02-06 22:17 | PDOC ---
Exam Note: Tony Note: Please also refer to the separate dictated note~for this date of service dictated separately.~Patient seen individually. Discussed the patient with Nursing staff reviewed the chart.~Reviewed interim history and current functioning. Reviewed vital signs,~Labs/ Radiology~and current medications noted below. Continue current treatment with the changes noted in the dictated addendum note Assessment: Vital Signs: Vital Signs Date Time Temp Pulse Resp B/P (MAP) Pulse Ox O2 Delivery O2 Flow Rate FiO2 02/06/19 15:57 98.0 101 17 108/70 (83) 98 02/06/19 15:50 Room Air 02/03/19 05:10 2.0 I&O Intake and Output 02/06/19 07:00 Intake Total 2175 ml Balance 2175 ml Intake Oral 2175 ml # Bowel Movements 1 Current Medications: Meds: Current Medications Acetaminophen (Tylenol) 650 mg PRN Q6HRS PRN PO PAIN / TEMP; Start 01/25/19 at 12:30; Stop 01/25/19 at 13:54; Status DC Multi-Ingredient Ointment (Analgesic [place]) 1 amy PRN QID PRN TP MUSCLE PAIN; Start 01/25/19 at 12:30 Al Hydroxide/Mg Hydroxide (Mylanta Plus Xs) 15 ml PRN AFTMEALHC PRN PO DYSPEPSIA; Start 01/25/19 at 12:30 Magnesium Hydroxide (Milk Of Magnesia) 2,400 mg PRN QHS PRN PO CONSTIPATION Las t administered on 02/05/19at 05:07; Start 01/25/19 at 12:30 Acetaminophen (Tylenol) 650 mg PRN Q6HRS PRN PO PAIN / TEMP Last administered on 02/04/19at 00:01; Start 01/25/19 at 13:30 Albuterol Sulfate (Ventolin) 2.5 mg PRN Q6HRS PRN INH SHORTNESS OF BREATH; Start 01/25/19 at 13:30 Guaifenesin (Guaifenesin) 200 mg DAILY PO Last administered on 02/06/19at 08:10; Start 01/26/19 at 09:00 Albuterol/ Ipratropium (Duoneb) 3 ml QID NEB Last administered on 02/06/19at 15:50; Start 01/25/19 at 17:00 Levothyroxine Sodium (Synthroid) 137 mcg DAILY06 PO Last administered on 02/06/19 05:48; Start 01/26/19 at 06:00 Olanzapine (ZyPREXA ZYDIS) 2.5 mg PRN Q4HRS PRN PO ANXIETY / AGITATION Last administered on 02/04/19 18:39; Start 01/25/19 at 13:30 Rivastigmine (Exelon 13.3mg) 1 patch DAILY TD Last administered on 02/06/19 08:05; Start 01/26/19 at 09:00 Sertraline HCl (Zoloft) 50 mg DAILY PO Last administered on 02/01/19 07:53; Start 01/26/19 at 09:00; Stop 02/01/19 at 16:43; Status DC Tamsulosin HCl (Flomax) 0.4 mg DAILY PO Last administered on 02/06/19 08:06; Start 01/26/19 at 09:00 Non-Formulary Medication (Budesonide (Pulmicort)) 0.5 mg RTBID NEB ; Start 01/25/19 at 20:00; Stop 01/25/19 at 20:00; Status DC Calcium/Vitamin D (Oscal D 500mg/ 200uts) 1 tab DAILY PO Last administered on 02/06/19 08:10; Start 01/26/19 at 09:00 Vitamin D (Vitamin D3) 50,000 unit WEEKLY PO Last administered on 02/04/19 08:09; Start 01/28/19 at 09:00 Divalproex Sodium (Depakote Sprinkles) 250 mg BID PO Last administered on 02/03/19 08:55; Start 01/25/19 at 21:00; Stop 02/03/19 at 16:42; Status DC Ferrous Sulfate (Feosol) 325 mg DAILYWBKFT PO Last administered on 02/06/19 08:06; Start 01/26/19 at 08:00 Glucosamine Sulfate (Glucosamine) 1,000 mg DAILY PO Last administered on 02/06/19 08:07; Start 01/26/19 at 09:00 Haloperidol Lactate (Haldol) 5 mg PRN Q4HRS PRN IM ANXIETY/AGITATION Last administered on 02/03/19 11:37; Start 01/25/19 at 13:45 Lactobacillus Rhamnosus (Culturelle) 1 cap BID PO Last administered on 02/06/19 19:25; Start 01/25/19 at 21:00 Non-Formulary Medication (Mag Hydrox/Al Hydrox/Simeth (Advanced Antacid Liquid)) 15 ml PRN AFTMEALHC PRN PO DYSPEPSIA; Start 01/25/19 at 13:30; Stop 01/25/19 at 13:47; Status DC Non-Formulary Medication (Magnesium Hydroxide (Milk Of Magnesia)) 2,400 mg PRN QHS PRN PO CONSTIPATION; Start 01/25/19 at 13:30; Stop 01/25/19 at 13:47; Status DC Non-Formulary Medication (Methyl Salicylate/Menth/ Camph (Pain-Relief Cream)) 1 amy PRN BID PRN TP foot pain; Start 01/25/19 at 13:30; Stop 01/25/19 at 13:47; Status DC Multivitamins/ Calcium (Thera-M Plus) 1 tab DAILY PO Last administered on 02/06/19 08:05; Start 01/26/19 at 09:00 Nystatin/ Triamcinolone Acetonide (Mycolog Ii) 1 amy BID TP Last administered on 01/27/19at 08:16; Start 01/25/19 at 21:00; Stop 01/27/19 at 17:01; Status DC Olanzapine (ZyPREXA ZYDIS) 10 mg QHS PO Last administered on 02/06/19 19:26; Start 01/25/19 at 21:00 Trazodone HCl (Desyrel) 150 mg QHS PO Last administered on 02/06/19 19:25; Start 01/25/19 at 21:00 Budesonide (Pulmicort) 0.5 mg RTBID NEB Last administered on 02/06/19 08:00; Start 01/25/19 at 20:00 Mirtazapine (Remeron) 7.5 mg QHS PO Last administered on 02/06/19 19:25; Start 01/26/19 at 21:00 Nystatin/ Triamcinolone Acetonide (Mycolog Ii) 1 amy PRN BID PRN TP AFFECTED AREA; Start 01/27/19 at 21:00 Sertraline HCl (Zoloft) 75 mg DAILY PO Last administered on 02/06/19at 08:06; Start 02/02/19 at 09:00 Divalproex Sodium (Depakote Sprinkles) 375 mg BID PO Last administered on 02/06/19at 19:26; Start 02/03/19 at 21:00 Active Scripts Active Reported Haloperidol 5 Mg Tablet 5 Mg IM PRN Q4HRS PRN Zyprexa Zydis (Olanzapine) 10 Mg Tab.rapdis 10 Mg PO QHS Zyprexa Zydis (Olanzapine) 5 Mg Tab.rapdis 2.5 Mg PO PRN Q4HRS PRN Milk Of Magnesia (Magnesium Hydroxide) 2,400 Mg/10 Ml Oral.susp 2,400 Mg PO PRN QHS PRN Advanced Antacid Liquid (Mag Hydrox/Al Hydrox/Simeth) 355 Ml Oral.susp 15 Ml PO PRN AFTMEALHC PRN Culturelle (Lactobacillus Rhamnosus Gg) 1 Each Capsule 1 Each PO BID Duoneb 0.5-3(2.5) Mg/3 Ml (Albuterol/Ipratropium) 3 Ml Ampul.neb 3 Ml NEB QID Depakote Sprinkle (Divalproex Sodium) 125 Mg Cap.sprink 250 Mg PO BID Vitamin D3 (Cholecalciferol (Vitamin D3)) 5,000 Unit Tablet 50,000 Unit PO WEEKLY Calcium 500 + Vit D 400 Tablet (Calcium Carbonate/Vitamin D3) 1 Each Tablet 1 Each PO DAILY Pulmicort (Budesonide) 0.5 Mg/2 Ml Ampul.neb 0.5 Mg NEB RTBID Tylenol (Acetaminophen) 325 Mg Tablet 650 Mg PO PRN Q6HRS PRN Multivitamins (Multivitamin) 1 Each Tablet 1 Each PO DAILY Nystatin-Triamcinolone Cream (Nystatin/Triamcin) 15 Gm Cream..g. 1 Amy TP BID Guaifenesin 200 Mg Tablet 200 Mg PO DAILY Glucosamine (Glucosamine Sulfate 2KCL) 1,000 Mg Tablet 1,000 Mg PO DAILY Flomax (Tamsulosin Hcl) 0.4 Mg Cap.er.24h 0.4 Mg PO DAILY Zoloft (Sertraline Hcl) 50 Mg Tablet 50 Mg PO DAILY EXELON 13.3mg/24hr (Rivastigmine) 1 Each Patch.td24 1 Patch TD DAILY Pain-Relief Cream (Methyl Salicylate/Menth/Camph) 113.3 Gm Cream..g. 1 Amy TP PRN BID PRN Levothyroxine Sodium 137 Mcg Tablet 137 Mcg PO DAILYAC Ferrous Gluconate 324 Mg Tablet 324 Mg PO DAILY Proair Hfa Inhaler (Albuterol Sulfate) 8.5 Gm Hfa.aer.ad 1 Puff INH PRN Q6HRS PRN Trazodone Hcl 50 Mg Tablet 150 Mg PO QHS I have reviewed the current psychotropics carefully including drug interactions. Risk benefit ratio favors no change other than as noted in my dictated progress note. Diagnosis: Problems: (1) Anxiety disorder (2) Impulse control disorder (3) Dementia, vascular, with depression (4) Dementia, vascular, with delusions (5) Dementia in Alzheimer's disease with depression (6) Dementia in Alzheimer's disease with delusions (7) Dementia with behavioral disturbance MYLES SHORT MD Feb 06, 2019 22:17
[2019-02-07] MEDS: ALBUTEROL SULFATE 2.5 MG/3 ML NEBU. INH PRN (02:47)
[2019-02-07] MEDS: LEVOTHYROXINE 137 MCG TABLET PO SCH (02:49)
[2019-02-07] MEDS: BUDESONIDE 0.5 MG/2 ML NEBU NEB SCH ×2 (05:07→20:00)
[2019-02-07] MEDS: IPRATRPIUM/ALBUTEROL 0.5/2.5MG 3 ML NEBU. NEB SCH ×4 (05:07→20:54)
[2019-02-07 05:38] VITALS: BP 127/83
[2019-02-07] MEDS: GLUCOSAMINE 500 MG CAPSULE PO SCH (08:04)
[2019-02-07] MEDS: TAMSULOSIN 0.4 MG CAP.ER.24H. PO SCH (08:04)
[2019-02-07] MEDS: DIVALPROEX 125 MG CAP.SPRINK PO SCH ×2 (08:04→19:27)
[2019-02-07] MEDS: CALCIUM CARB/VIT D3 500/200 TABLET PO SCH (08:04)
[2019-02-07] MEDS: FERROUS SULFATE 325 MG TABLET. PO SCH (08:05)
[2019-02-07] MEDS: SERTRALINE 50 MG TABLET. PO SCH (08:05)
[2019-02-07] MEDS: LACTOBACILLUS RHAMNOSUS GG 1 CAPSULE. PO SCH ×2 (08:05→19:27)
[2019-02-07] MEDS: RIVASTIGMINE 13.3MG PATCH. TD SCH (08:05)
[2019-02-07] MEDS: MULTIVITAMIN with MINERAL TABLET. PO SCH (08:05)
[2019-02-07 09:35] LABS: BASO % 1 % (0-3); EOS # 0.2 x10^3/uL (0.0-0.7); EOS % 4 % (0-3); HEMATOCRIT 39.8 % (39.0-53.0); HEMOGLOBIN 12.9 g/dL (13.0-17.5); LYMPH # 0.9 x10^3/uL (1.0-4.8); LYMPH % 17 % (24-48); MEAN CORPUSCULAR HEMOGLOBIN 31 pg (25-35); MEAN CORPUSCULAR HGB CONC 33 g/dL (31-37); MEAN CORPUSCULAR VOLUME 94 fL (79-100); MONO # 0.7 x10^3/uL (0.0-1.1); MONO % 13 % (0-9); NEUT # 3.5 x10^3uL (1.8-7.7); NEUT % 66 % (31-73); PLATELET COUNT 363 x10^3/uL (140-400); RED BLOOD COUNT 4.23 x10^6/uL (4.30-5.70); RED CELL DISTRIBUTION WIDTH 14.3 % (11.5-14.5); WHITE BLOOD COUNT 5.3 x10^3/uL (4.0-11.0)
[2019-02-07 09:54] LABS: ALBUMIN 2.9 g/dL (3.4-5.0); ALBUMIN/GLOBULIN RATIO 0.7 (1.0-1.7); CALCIUM 9.1 mg/dL (8.5-10.1); CREATININE 1.5 mg/dL (0.7-1.3); GFR 44.8; POTASSIUM 4.3 mmol/L (3.5-5.1); TOTAL BILIRUBIN 0.3 mg/dL (0.2-1.0); TOTAL PROTEIN 7.1 g/dL (6.4-8.2)
[2019-02-07 10:00] LABS: VAL ACID 48 mcg/mL (50-100)
[2019-02-07 16:22] VITALS: BP 110/71
[2019-02-07] MEDS: MIRTAZAPINE 7.5 MG TABLET. PO SCH (19:27)
[2019-02-07] MEDS: traZODone 150 MG TABLET. PO SCH (19:27)
--- NOTE | 2019-02-07 21:18 | PN ---
DATE: 02/06/2019 PSYCHIATRIC PROGRESS NOTE This late entry 02/06/2019 covers elements not covered in my initial note. SUBJECTIVE: I met with the patient in the evening of 03/05/2019. The patient slept 6-1/2 hours previous night. He remains confused, oblivious of his surroundings, but has been wandering less more redirectable, seems calmer, less anxious. REVIEW OF SYSTEMS: No CV, , pulmonary, eye, ENT system symptoms on review. Reliability poor. MENTAL STATUS EXAM: Oriented to himself. Insight, judgment, recent and remote memory, attention, concentration, fund of knowledge poor, consistent with his diagnosis mentioned in my initial note. PLAN: No change from initial note. MAN Leyla SHORT MD DR: RICHARD/ruiz JOB#: [id number] / [id number]
--- NOTE | 2019-02-07 22:32 | PDOC ---
Exam Note: Tony Note: Please also refer to the separate dictated note~for this date of service dictated separately.~Patient seen individually. Discussed the patient with Nursing staff reviewed the chart.~Reviewed interim history and current functioning. Reviewed vital signs,~Labs/ Radiology~and current medications noted below. Continue current treatment with the changes noted in the dictated addendum note Assessment: Vital Signs: Vital Signs Date Time Temp Pulse Resp B/P (MAP) Pulse Ox O2 Delivery O2 Flow Rate FiO2 02/07/19 20:58 Room Air 02/07/19 16:22 98.2 84 20 110/71 (84) 94 02/03/19 05:10 2.0 I&O Intake and Output 02/07/19 06:59 Intake Total 1080 ml Balance 1080 ml Intake Oral 1080 ml # Voids 1 Labs: Laboratory Tests Test 02/07/19 09:18 White Blood Count 5.3 x10^3/uL (4.0-11.0) Red Blood Count 4.23 x10^6/uL (4.30-5.70) L Hemoglobin 12.9 g/dL (13.0-17.5) L Hematocrit 39.8 % (39.0-53.0) Mean Corpuscular Volume 94 fL (79-100) Mean Corpuscular Hemoglobin 31 pg (25-35) Mean Corpuscular Hemoglobin Concent 33 g/dL (31-37) Red Cell Distribution Width 14.3 % (11.5-14.5) Platelet Count 363 x10^3/uL (140-400) Neutrophils (%) (Auto) 66 % (31-73) Lymphocytes (%) (Auto) 17 % (24-48) L Monocytes (%) (Auto) 13 % (0-9) H Eosinophils (%) (Auto) 4 % (0-3) H Basophils (%) (Auto) 1 % (0-3) Neutrophils # (Auto) 3.5 x10^3uL (1.8-7.7) Lymphocytes # (Auto) 0.9 x10^3/uL (1.0-4.8) L Monocytes # (Auto) 0.7 x10^3/uL (0.0-1.1) Eosinophils # (Auto) 0.2 x10^3/uL (0.0-0.7) Basophils # (Auto) 0.0 x10^3/uL (0.0-0.2) Sodium Level 143 mmol/L (136-145) Potassium Level 4.3 mmol/L (3.5-5.1) Chloride Level 105 mmol/L (98-107) Carbon Dioxide Level 30 mmol/L (21-32) Anion Gap 8 (6-14) Blood Urea Nitrogen 27 mg/dL (8-26) H Creatinine 1.5 mg/dL (0.7-1.3) H Estimated GFR (Cockcroft-Gault) 44.8 BUN/Creatinine Ratio 18 (6-20) Glucose Level 78 mg/dL (70-99) Calcium Level 9.1 mg/dL (8.5-10.1) Total Bilirubin 0.3 mg/dL (0.2-1.0) Aspartate Amino Transferase (AST) 22 U/L (15-37) Alanine Aminotransferase (ALT) 30 U/L (16-63) Alkaline Phosphatase 70 U/L (46-116) Total Protein 7.1 g/dL (6.4-8.2) Albumin 2.9 g/dL (3.4-5.0) L Albumin/Globulin Ratio 0.7 (1.0-1.7) L Valproic Acid Level 48 mcg/mL (50-100) L Valproic Acid Last Dose Date 02/06/19 Valproic Acid Last Dose Time 2100 Current Medications: Meds: Current Medications Acetaminophen (Tylenol) 650 mg PRN Q6HRS PRN PO PAIN / TEMP; Start 01/25/19 at 12:30; Stop 01/25/19 at 13:54; Status DC Multi-Ingredient Ointment (Analgesic [place]) 1 amy PRN QID PRN TP MUSCLE PAIN; Start 01/25/19 at 12:30 Al Hydroxide/Mg Hydroxide (Mylanta Plus Xs) 15 ml PRN AFTMEALHC PRN PO DYSPEPSIA; Start 01/25/19 at 12:30 Magnesium Hydroxide (Milk Of Magnesia) 2,400 mg PRN QHS PRN PO CONSTIPATION Last administered on 02/05/19at 05:07; Start 01/25/19 at 12:30 Acetaminophen (Tylenol) 650 mg PRN Q6HRS PRN PO PAIN / TEMP Last administered on 02/04/19at 00:01; Start 01/25/19 at 13:30 Albuterol Sulfate (Ventolin) 2.5 mg PRN Q6HRS PRN INH SHORTNESS OF BREATH Last administered on 02/07/19 02:47; Start 01/25/19 at 13:30 Guaifenesin (Guaifenesin) 200 mg DAILY PO Last administered on 02/07/19 08:06; Start 01/26/19 at 09:00 Albuterol/ Ipratropium (Duoneb) 3 ml QID NEB Last administered on 02/07/19 20:54; Start 01/25/19 at 17:00 Levothyroxine Sodium (Synthroid) 137 mcg DAILY06 PO Last administered on 02/07/19 02:49; Start 01/26/19 at 06:00 Olanzapine (ZyPREXA ZYDIS) 2.5 mg PRN Q4HRS PRN PO ANXIETY / AGITATION Last administered on 02/07/19 02:49; Start 01/25/19 at 13:30 Rivastigmine (Exelon 13.3mg) 1 patch DAILY TD Last administered on 02/07/19 08:05; Start 01/26/19 at 09:00 Sertraline HCl (Zoloft) 50 mg DAILY PO Last administered on 02/01/19 07:53; Start 01/26/19 at 09:00; Stop 02/01/19 at 16:43; Status DC Tamsulosin HCl (Flomax) 0.4 mg DAILY PO Last administered on 02/07/19 08:04; Start 01/26/19 at 09:00 Non-Formulary Medication (Budesonide (Pulmicort)) 0.5 mg RTBID NEB ; Start 01/25/19 at 20:00; Stop 01/25/19 at 20:00; Status DC Calcium/Vitamin D (Oscal D 500mg/ 200uts) 1 tab DAILY PO Last administered on 02/07/19 08:04; Start 01/26/19 at 09:00 Vitamin D (Vitamin D3) 50,000 unit WEEKLY PO Last administered on 02/04/19 08:09; Start 01/28/19 at 09:00 Divalproex Sodium (Depakote Sprinkles) 250 mg BID PO Last administered on 5/31/19at 08:55; Start 01/25/19 at 21:00; Stop 02/03/19 at 16:42; Status DC Ferrous Sulfate (Feosol) 325 mg DAILYWBKFT PO Last administered on 02/07/19 08:05; Start 01/26/19 at 08:00 Glucosamine Sulfate (Glucosamine) 1,000 mg DAILY PO Last administered on 02/07/19 08:04; Start 01/26/19 at 09:00 Haloperidol Lactate (Haldol) 5 mg PRN Q4HRS PRN IM ANXIETY/AGITATION Last administered on 02/03/19 11:37; Start 01/25/19 at 13:45 Lactobacillus Rhamnosus (Culturelle) 1 cap BID PO Last administered on 02/07/19 19:27; Start 01/25/19 at 21:00 Non-Formulary Medication (Mag Hydrox/Al Hydrox/Simeth (Advanced Antacid Liquid)) 15 ml PRN AFTMEALHC PRN PO DYSPEPSIA; Start 01/25/19 at 13:30; Stop 01/25/19 at 13:47; Status DC Non-Formulary Medication (Magnesium Hydroxide (Milk Of Magnesia)) 2,400 mg PRN QHS PRN PO CONSTIPATION; Start 01/25/19 at 13:30; Stop 01/25/19 at 13:47; Status DC Non-Formulary Medication (Methyl Salicylate/Menth/ Camph (Pain-Relief Cream)) 1 amy PRN BID PRN TP foot pain; Start 01/25/19 at 13:30; Stop 01/25/19 at 13:47; Status DC Multivitamins/ Calcium (Thera-M Plus) 1 tab DAILY PO Last administered on 02/07/19 08:05; Start 01/26/19 at 09:00 Nystatin/ Triamcinolone Acetonide (Mycolog Ii) 1 amy BID TP Last administered on 01/27/19 08:16; Start 01/25/19 at 21:00; Stop 01/27/19 at 17:01; Status DC Olanzapine (ZyPREXA ZYDIS) 10 mg QHS PO Last administered on 02/07/19 19:27; Start 01/25/19 at 21:00 Trazodone HCl (Desyrel) 150 mg QHS PO Last administered on 6/4/19at 19:27; Start 01/25/19 at 21:00 Budesonide (Pulmicort) 0.5 mg RTBID NEB Last administered on 02/07/19at 20:00; Start 01/25/19 at 20:00 Mirtazapine (Remeron) 7.5 mg QHS PO Last administered on 02/07/19 19:27; Start 01/26/19 at 21:00 Nystatin/ Triamcinolone Acetonide (Mycolog Ii) 1 amy PRN BID PRN TP AFFECTED AREA; Start 01/27/19 at 21:00 Sertraline HCl (Zoloft) 75 mg DAILY PO Last administered on 02/07/19 08:05; Start 02/02/19 at 09:00 Divalproex Sodium (Depakote Sprinkles) 375 mg BID PO Last administered on 02/07/19 19:27; Start 02/03/19 at 21:00 Active Scripts Active Reported Haloperidol 5 Mg Tablet 5 Mg IM PRN Q4HRS PRN Zyprexa Zydis (Olanzapine) 10 Mg Tab.rapdis 10 Mg PO QHS Zyprexa Zydis (Olanzapine) 5 Mg Tab.rapdis 2.5 Mg PO PRN Q4HRS PRN Milk Of Magnesia (Magnesium Hydroxide) 2,400 Mg/10 Ml Oral.susp 2,400 Mg PO PRN QHS PRN Advanced Antacid Liquid (Mag Hydrox/Al Hydrox/Simeth) 355 Ml Oral.susp 15 Ml PO PRN AFTMEALHC PRN Culturelle (Lactobacillus Rhamnosus Gg) 1 Each Capsule 1 Each PO BID Duoneb 0.5-3(2.5) Mg/3 Ml (Albuterol/Ipratropium) 3 Ml Ampul.neb 3 Ml NEB QID Depakote Sprinkle (Divalproex Sodium) 125 Mg Cap.sprink 250 Mg PO BID Vitamin D3 (Cholecalciferol (Vitamin D3)) 5,000 Unit Tablet 50,000 Unit PO WEEKLY Calcium 500 + Vit D 400 Tablet (Calcium Carbonate/Vitamin D3) 1 Each Tablet 1 Each PO DAILY Pulmicort (Budesonide) 0.5 Mg/2 Ml Ampul.neb 0.5 Mg NEB RTBID Tylenol (Acetaminophen) 325 Mg Tablet 650 Mg PO PRN Q6HRS PRN Multivitamins (Multivitamin) 1 Each Tablet 1 Each PO DAILY Nystatin-Triamcinolone Cream (Nystatin/Triamcin) 15 Gm Cream..g. 1 Amy TP BID Guaifenesin 200 Mg Tablet 200 Mg PO DAILY Glucosamine (Glucosamine Sulfate 2KCL) 1,000 Mg Tablet 1,000 Mg PO DAILY Flomax (Tamsulosin Hcl) 0.4 Mg Cap.er.24h 0.4 Mg PO DAILY Zoloft (Sertraline Hcl) 50 Mg Tablet 50 Mg PO DAILY EXELON 13.3mg/24hr (Rivastigmine) 1 Each Patch.td24 1 Patch TD DAILY Pain-Relief Cream (Methyl Salicylate/Menth/Camph) 113.3 Gm Cream..g. 1 Amy TP PRN BID PRN Levothyroxine Sodium 137 Mcg Tablet 137 Mcg PO DAILYAC Ferrous Gluconate 324 Mg Tablet 324 Mg PO DAILY Proair Hfa Inhaler (Albuterol Sulfate) 8.5 Gm Hfa.aer.ad 1 Puff INH PRN Q6HRS PRN Trazodone Hcl 50 Mg Tablet 150 Mg PO QHS I have reviewed the current psychotropics carefully including drug interactions. Risk benefit ratio favors no change other than as noted in my dictated progress note. Diagnosis: Problems: (1) Anxiety disorder (2) Impulse control disorder (3) Dementia, vascular, with depression (4) Dementia, vascular, with delusions (5) Dementia in Alzheimer's disease with depression (6) Dementia in Alzheimer's disease with delusions (7) Dementia with behavioral disturbance MYLES SHORT MD Feb 07, 2019 22:32
[2019-02-08] MEDS: ALBUTEROL SULFATE 2.5 MG/3 ML NEBU. INH PRN (02:10)
[2019-02-08] MEDS: LEVOTHYROXINE 137 MCG TABLET PO SCH (05:13)
[2019-02-08] MEDS: IPRATRPIUM/ALBUTEROL 0.5/2.5MG 3 ML NEBU. NEB SCH ×4 (05:16→20:43)
[2019-02-08] MEDS: BUDESONIDE 0.5 MG/2 ML NEBU NEB SCH ×2 (05:16→20:43)
[2019-02-08 05:46] VITALS: BP 136/84
[2019-02-08] MEDS: TAMSULOSIN 0.4 MG CAP.ER.24H. PO SCH (08:44)
[2019-02-08] MEDS: GLUCOSAMINE 500 MG CAPSULE PO SCH (08:44)
[2019-02-08] MEDS: DIVALPROEX 125 MG CAP.SPRINK PO SCH ×2 (08:44→19:14)
[2019-02-08] MEDS: CALCIUM CARB/VIT D3 500/200 TABLET PO SCH (08:45)
[2019-02-08] MEDS: LACTOBACILLUS RHAMNOSUS GG 1 CAPSULE. PO SCH ×2 (08:45→19:14)
[2019-02-08] MEDS: MULTIVITAMIN with MINERAL TABLET. PO SCH (08:45)
[2019-02-08] MEDS: RIVASTIGMINE 13.3MG PATCH. TD SCH (08:45)
[2019-02-08] MEDS: FERROUS SULFATE 325 MG TABLET. PO SCH (08:45)
[2019-02-08] MEDS: SERTRALINE 50 MG TABLET. PO SCH (08:45)
[2019-02-08 16:34] VITALS: BP 104/68
[2019-02-08] MEDS: MIRTAZAPINE 7.5 MG TABLET. PO SCH (19:13)
[2019-02-08] MEDS: traZODone 150 MG TABLET. PO SCH (19:13)
--- NOTE | 2019-02-08 21:05 | PN ---
DATE: 02/07/2019 PSYCHIATRIC PROGRESS NOTE This late entry 02/07/2019 covers elements not covered in my initial note 02/07/2019. SUBJECTIVE: I met with the patient in the evening. The patient slept 6-3/4 hours previous night. He remains confused, calm, compliant, wandering, oblivious of his surroundings. Occasionally, he checks the doors for exit. He does redirect. REVIEW OF SYSTEMS: No CV, , pulmonary, eye, ENT system symptoms on review. Reliability poor. MENTAL STATUS EXAM: Oriented to himself. Insight, judgment, recent and remote memory, attention, concentration, fund of knowledge poor, consistent with his diagnosis mentioned in my initial note. PLAN: No change from initial note. MAN Leyla SHORT MD DR: RICHARD/ruiz JOB#: [id number] / [id number]
--- NOTE | 2019-02-08 22:30 | PDOC ---
Exam Note: Tony Note: Please also refer to the separate dictated note~for this date of service dictated separately.~Patient seen individually. Discussed the patient with Nursing staff reviewed the chart.~Reviewed interim history and current functioning. Reviewed vital signs,~Labs/ Radiology~and current medications noted below. Continue current treatment with the changes noted in the dictated addendum note Assessment: Vital Signs: Vital Signs Date Time Temp Pulse Resp B/P (MAP) Pulse Ox O2 Delivery O2 Flow Rate FiO2 02/08/19 20:47 Nasal Cannula 2.0 02/08/19 16:34 98.2 78 16 104/68 (80) 92 I&O Intake and Output 02/08/19 06:59 Intake Total 1200 ml Balance 1200 ml Intake Oral 1200 ml # Voids 1 Current Medications: Meds: Current Medications Acetaminophen (Tylenol) 650 mg PRN Q6HRS PRN PO PAIN / TEMP; Start 01/25/19 at 12:30; Stop 01/25/19 at 13:54; Status DC Multi-Ingredient Ointment (Analgesic [place]) 1 amy PRN QID PRN TP MUSCLE PAIN; Start 01/25/19 at 12:30 Al Hydroxide/Mg Hydroxide (Mylanta Plus Xs) 15 ml PRN AFTMEALHC PRN PO DYSPEPSIA; Start 01/25/19 at 12:30 Magnesium Hydroxide (Milk Of Magnesia) 2,400 mg PRN QHS PRN PO CONSTIPATION Last administered on 02/05/19at 05:07; Start 01/25/19 at 12:30 Acetaminophen (Tylenol) 650 mg PRN Q6HRS PRN PO PAIN / TEMP Last administered on 02/04/19at 00:01; Start 01/25/19 at 13:30 Albuterol Sulfate (Ventolin) 2.5 mg PRN Q6HRS PRN INH SHORTNESS OF BREATH Last administered on 02/08/19at 02:10; Start 01/25/19 at 13:30 Guaifenesin (Guaifenesin) 200 mg DAILY PO Last administered on 02/08/19at 08:44; Start 01/26/19 at 09:00 Albuterol/ Ipratropium (Duoneb) 3 ml QID NEB Last administered on 02/08/19at 20:43; Start 01/25/19 at 17:00 Levothyroxine Sodium (Synthroid) 137 mcg DAILY06 PO Last administered on 02/08/19 05:13; Start 01/26/19 at 06:00 Olanzapine (ZyPREXA ZYDIS) 2.5 mg PRN Q4HRS PRN PO ANXIETY / AGITATION Last administered on 02/08/19 21:27; Start 01/25/19 at 13:30 Rivastigmine (Exelon 13.3mg) 1 patch DAILY TD Last administered on 02/08/19 08:45; Start 01/26/19 at 09:00 Sertraline HCl (Zoloft) 50 mg DAILY PO Last administered on 02/01/19 07:53; Start 01/26/19 at 09:00; Stop 02/01/19 at 16:43; Status DC Tamsulosin HCl (Flomax) 0.4 mg DAILY PO Last administered on 02/08/19 08:44; Start 01/26/19 at 09:00 Non-Formulary Medication (Budesonide (Pulmicort)) 0.5 mg RTBID NEB ; Start 01/25/19 at 20:00; Stop 01/25/19 at 20:00; Status DC Calcium/Vitamin D (Oscal D 500mg/ 200uts) 1 tab DAILY PO Last administered on 02/08/19 08:45; Start 01/26/19 at 09:00 Vitamin D (Vitamin D3) 50,000 unit WEEKLY PO Last administered on 02/04/19 08:09; Start 01/28/19 at 09:00 Divalproex Sodium (Depakote Sprinkles) 250 mg BID PO Last administered on 02/03/19 08:55; Start 01/25/19 at 21:00; Stop 02/03/19 at 16:42; Status DC Ferrous Sulfate (Feosol) 325 mg DAILYWBKFT PO Last administered on 02/08/19 08:45; Start 01/26/19 at 08:00 Glucosamine Sulfate (Glucosamine) 1,000 mg DAILY PO Last administered on 02/08/19 08:44; Start 01/26/19 at 09:00 Haloperidol Lactate (Haldol) 5 mg PRN Q4HRS PRN IM ANXIETY/AGITATION Last administered on 02/03/19 11:37; Start 01/25/19 at 13:45 Lactobacillus Rhamnosus (Culturelle) 1 cap BID PO Last administered on 02/08/19 19:14; Start 01/25/19 at 21:00 Non-Formulary Medication (Mag Hydrox/Al Hydrox/Simeth (Advanced Antacid Liquid)) 15 ml PRN AFTMEALHC PRN PO DYSPEPSIA; Start 01/25/19 at 13:30; Stop 01/25/19 at 13:47; Status DC Non-Formulary Medication (Magnesium Hydroxide (Milk Of Magnesia)) 2,400 mg PRN QHS PRN PO CONSTIPATION; Start 01/25/19 at 13:30; Stop 01/25/19 at 13:47; Status DC Non-Formulary Medication (Methyl Salicylate/Menth/ Camph (Pain-Relief Cream)) 1 amy PRN BID PRN TP foot pain; Start 01/25/19 at 13:30; Stop 01/25/19 at 13:47; Status DC Multivitamins/ Calcium (Thera-M Plus) 1 tab DAILY PO Last administered on 02/08/19at 08:45; Start 01/26/19 at 09:00 Nystatin/ Triamcinolone Acetonide (Mycolog Ii) 1 amy BID TP Last administered on 01/27/19at 08:16; Start 01/25/19 at 21:00; Stop 01/27/19 at 17:01; Status DC Olanzapine (ZyPREXA ZYDIS) 10 mg QHS PO Last administered on 02/08/19 19:14; Start 01/25/19 at 21:00 Trazodone HCl (Desyrel) 150 mg QHS PO Last administered on 02/08/19 19:13; Start 01/25/19 at 21:00 Budesonide (Pulmicort) 0.5 mg RTBID NEB Last administered on 02/08/19 20:43; Start 01/25/19 at 20:00 Mirtazapine (Remeron) 7.5 mg QHS PO Last administered on 02/08/19 19:13; Start 01/26/19 at 21:00 Nystatin/ Triamcinolone Acetonide (Mycolog Ii) 1 amy PRN BID PRN TP AFFECTED AREA; Start 01/27/19 at 21:00 Sertraline HCl (Zoloft) 75 mg DAILY PO Last administered on 02/08/19at 08:45; Start 02/02/19 at 09:00 Divalproex Sodium (Depakote Sprinkles) 375 mg BID PO Last administered on 02/08/19at 19:14; Start 02/03/19 at 21:00 Active Scripts Active Reported Haloperidol 5 Mg Tablet 5 Mg IM PRN Q4HRS PRN Zyprexa Zydis (Olanzapine) 10 Mg Tab.rapdis 10 Mg PO QHS Zyprexa Zydis (Olanzapine) 5 Mg Tab.rapdis 2.5 Mg PO PRN Q4HRS PRN Milk Of Magnesia (Magnesium Hydroxide) 2,400 Mg/10 Ml Oral.susp 2,400 Mg PO PRN QHS PRN Advanced Antacid Liquid (Mag Hydrox/Al Hydrox/Simeth) 355 Ml Oral.susp 15 Ml PO PRN AFTMEALHC PRN Culturelle (Lactobacillus Rhamnosus Gg) 1 Each Capsule 1 Each PO BID Duoneb 0.5-3(2.5) Mg/3 Ml (Albuterol/Ipratropium) 3 Ml Ampul.neb 3 Ml NEB QID Depakote Sprinkle (Divalproex Sodium) 125 Mg Cap.sprink 250 Mg PO BID Vitamin D3 (Cholecalciferol (Vitamin D3)) 5,000 Unit Tablet 50,000 Unit PO WEEKLY Calcium 500 + Vit D 400 Tablet (Calcium Carbonate/Vitamin D3) 1 Each Tablet 1 Each PO DAILY Pulmicort (Budesonide) 0.5 Mg/2 Ml Ampul.neb 0.5 Mg NEB RTBID Tylenol (Acetaminophen) 325 Mg Tablet 650 Mg PO PRN Q6HRS PRN Multivitamins (Multivitamin) 1 Each Tablet 1 Each PO DAILY Nystatin-Triamcinolone Cream (Nystatin/Triamcin) 15 Gm Cream..g. 1 Amy TP BID Guaifenesin 200 Mg Tablet 200 Mg PO DAILY Glucosamine (Glucosamine Sulfate 2KCL) 1,000 Mg Tablet 1,000 Mg PO DAILY Flomax (Tamsulosin Hcl) 0.4 Mg Cap.er.24h 0.4 Mg PO DAILY Zoloft (Sertraline Hcl) 50 Mg Tablet 50 Mg PO DAILY EXELON 13.3mg/24hr (Rivastigmine) 1 Each Patch.td24 1 Patch TD DAILY Pain-Relief Cream (Methyl Salicylate/Menth/Camph) 113.3 Gm Cream..g. 1 Amy TP PRN BID PRN Levothyroxine Sodium 137 Mcg Tablet 137 Mcg PO DAILYAC Ferrous Gluconate 324 Mg Tablet 324 Mg PO DAILY Proair Hfa Inhaler (Albuterol Sulfate) 8.5 Gm Hfa.aer.ad 1 Puff INH PRN Q6HRS PRN Trazodone Hcl 50 Mg Tablet 150 Mg PO QHS I have reviewed the current psychotropics carefully including drug interactions. Risk benefit ratio favors no change other than as noted in my dictated progress note. Diagnosis: Problems: (1) Anxiety disorder (2) Impulse control disorder (3) Dementia, vascular, with depression (4) Dementia, vascular, with delusions (5) Dementia in Alzheimer's disease with depression (6) Dementia in Alzheimer's disease with delusions (7) Dementia with behavioral disturbance MYLES SHORT MD Feb 08, 2019 22:30
[2019-02-09] MEDS: BUDESONIDE 0.5 MG/2 ML NEBU NEB SCH ×2 (05:41→20:00)
[2019-02-09] MEDS: IPRATRPIUM/ALBUTEROL 0.5/2.5MG 3 ML NEBU. NEB SCH ×4 (05:41→20:00)
[2019-02-09 05:57] VITALS: BP 148/86
[2019-02-09] MEDS: LEVOTHYROXINE 137 MCG TABLET PO SCH (05:57)
[2019-02-09] MEDS: GLUCOSAMINE 500 MG CAPSULE PO SCH (07:43)
[2019-02-09] MEDS: LACTOBACILLUS RHAMNOSUS GG 1 CAPSULE. PO SCH ×2 (07:44→19:46)
[2019-02-09] MEDS: SERTRALINE 50 MG TABLET. PO SCH (07:44)
[2019-02-09] MEDS: DIVALPROEX 125 MG CAP.SPRINK PO SCH ×2 (07:44→19:46)
[2019-02-09] MEDS: CALCIUM CARB/VIT D3 500/200 TABLET PO SCH (07:45)
[2019-02-09] MEDS: FERROUS SULFATE 325 MG TABLET. PO SCH (07:45)
[2019-02-09] MEDS: TAMSULOSIN 0.4 MG CAP.ER.24H. PO SCH (07:45)
[2019-02-09] MEDS: MULTIVITAMIN with MINERAL TABLET. PO SCH (07:45)
[2019-02-09] MEDS: RIVASTIGMINE 13.3MG PATCH. TD SCH (07:46)
[2019-02-09 15:38] VITALS: BP 108/74
[2019-02-09] MEDS: MIRTAZAPINE 7.5 MG TABLET. PO SCH (19:46)
[2019-02-09] MEDS: traZODone 150 MG TABLET. PO SCH (19:46)
--- NOTE | 2019-02-09 22:39 | PDOC ---
Exam Note: Tony Note: Please also refer to the separate dictated note~for this date of service dictated separately.~Patient seen individually. Discussed the patient with Nursing staff reviewed the chart.~Reviewed interim history and current functioning. Reviewed vital signs,~Labs/ Radiology~and current medications noted below. Continue current treatment with the changes noted in the dictated addendum note Assessment: Vital Signs: Vital Signs Date Time Temp Pulse Resp B/P (MAP) Pulse Ox O2 Delivery O2 Flow Rate FiO2 02/09/19 20:03 Room Air 02/09/19 15:38 97.6 75 16 108/74 (85) 92 02/09/19 05:45 2.0 I&O Intake and Output 02/09/19 07:00 Intake Total 960 ml Balance 960 ml Intake Oral 960 ml # Voids 1 # Bowel Movements 1 Current Medications: Meds: Current Medications Acetaminophen (Tylenol) 650 mg PRN Q6HRS PRN PO PAIN / TEMP; Start 01/25/19 at 12:30; Stop 01/25/19 at 13:54; Status DC Multi-Ingredient Ointment (Analgesic [place]) 1 amy PRN QID PRN TP MUSCLE PAIN; Start 01/25/19 at 12:30 Al Hydroxide/Mg Hydroxide (Mylanta Plus Xs) 15 ml PRN AFTMEALHC PRN PO DYSPEPSIA; Start 01/25/19 at 12:30 Magnesium Hydroxide (Milk Of Magnesia) 2,400 mg PRN QHS PRN PO CONSTIPATION Last administered on 02/05/19 05:07; Start 01/25/19 at 12:30 Acetaminophen (Tylenol) 650 mg PRN Q6HRS PRN PO PAIN / TEMP Last administered on 02/04/19at 00:01; Start 01/25/19 at 13:30 Albuterol Sulfate (Ventolin) 2.5 mg PRN Q6HRS PRN INH SHORTNESS OF BREATH Last administered on 02/08/19at 02:10; Start 01/25/19 at 13:30 Guaifenesin (Guaifenesin) 200 mg DAILY PO Last administered on 02/09/19at 07:45; Start 01/26/19 at 09:00 Albuterol/ Ipratropium (Duoneb) 3 ml QID NEB Last administered on 02/09/19at 20:00; Start 01/25/19 at 17:00 Levothyroxine Sodium (Synthroid) 137 mcg DAILY06 PO Last administered on 02/09/19 05:57; Start 01/26/19 at 06:00 Olanzapine (ZyPREXA ZYDIS) 2.5 mg PRN Q4HRS PRN PO ANXIETY / AGITATION Last administered on 02/08/19 21:27; Start 01/25/19 at 13:30 Rivastigmine (Exelon 13.3mg) 1 patch DAILY TD Last administered on 02/09/19 07:46; Start 01/26/19 at 09:00 Sertraline HCl (Zoloft) 50 mg DAILY PO Last administered on 02/01/19 07:53; Start 01/26/19 at 09:00; Stop 02/01/19 at 16:43; Status DC Tamsulosin HCl (Flomax) 0.4 mg DAILY PO Last administered on 02/09/19 07:45; Start 01/26/19 at 09:00 Non-Formulary Medication (Budesonide (Pulmicort)) 0.5 mg RTBID NEB ; Start 01/25/19 at 20:00; Stop 01/25/19 at 20:00; Status DC Calcium/Vitamin D (Oscal D 500mg/ 200uts) 1 tab DAILY PO Last administered on 02/09/19 07:45; Start 01/26/19 at 09:00 Vitamin D (Vitamin D3) 50,000 unit WEEKLY PO Last administered on 02/04/19 08:09; Start 01/28/19 at 09:00 Divalproex Sodium (Depakote Sprinkles) 250 mg BID PO Last administered on 02/03/19 08:55; Start 01/25/19 at 21:00; Stop 02/03/19 at 16:42; Status DC Ferrous Sulfate (Feosol) 325 mg DAILYWBKFT PO Last administered on 02/09/19 07:45; Start 01/26/19 at 08:00 Glucosamine Sulfate (Glucosamine) 1,000 mg DAILY PO Last administered on 02/09/19 07:43; Start 01/26/19 at 09:00 Haloperidol Lactate (Haldol) 5 mg PRN Q4HRS PRN IM ANXIETY/AGITATION Last administered on 02/03/19 11:37; Start 01/25/19 at 13:45 Lactobacillus Rhamnosus (Culturelle) 1 cap BID PO Last administered on 02/09/19 19:46; Start 01/25/19 at 21:00 Non-Formulary Medication (Mag Hydrox/Al Hydrox/Simeth (Advanced Antacid Liquid)) 15 ml PRN AFTMEALHC PRN PO DYSPEPSIA; Start 01/25/19 at 13:30; Stop 01/25/19 at 13:47; Status DC Non-Formulary Medication (Magnesium Hydroxide (Milk Of Magnesia)) 2,400 mg PRN QHS PRN PO CONSTIPATION; Start 01/25/19 at 13:30; Stop 01/25/19 at 13:47; Status DC Non-Formulary Medication (Methyl Salicylate/Menth/ Camph (Pain-Relief Cream)) 1 amy PRN BID PRN TP foot pain; Start 01/25/19 at 13:30; Stop 01/25/19 at 13:47; Status DC Multivitamins/ Calcium (Thera-M Plus) 1 tab DAILY PO Last administered on 02/09/19 07:45; Start 01/26/19 at 09:00 Nystatin/ Triamcinolone Acetonide (Mycolog Ii) 1 amy BID TP Last administered on 01/27/19 08:16; Start 01/25/19 at 21:00; Stop 01/27/19 at 17:01; Status DC Olanzapine (ZyPREXA ZYDIS) 10 mg QHS PO Last administered on 02/09/19 19:46; Start 01/25/19 at 21:00 Trazodone HCl (Desyrel) 150 mg QHS PO Last administered on 02/09/19 19:46; S tart 01/25/19 at 21:00 Budesonide (Pulmicort) 0.5 mg RTBID NEB Last administered on 02/09/19 20:00; Start 01/25/19 at 20:00 Mirtazapine (Remeron) 7.5 mg QHS PO Last administered on 02/09/19 19:46; Start 01/26/19 at 21:00 Nystatin/ Triamcinolone Acetonide (Mycolog Ii) 1 amy PRN BID PRN TP AFFECTED AREA; Start 01/27/19 at 21:00 Sertraline HCl (Zoloft) 75 mg DAILY PO Last administered on 02/09/19at 07:44; Start 02/02/19 at 09:00 Divalproex Sodium (Depakote Sprinkles) 375 mg BID PO Last administered on 02/09/19at 19:46; Start 02/03/19 at 21:00 Active Scripts Active Reported Haloperidol 5 Mg Tablet 5 Mg IM PRN Q4HRS PRN Zyprexa Zydis (Olanzapine) 10 Mg Tab.rapdis 10 Mg PO QHS Zyprexa Zydis (Olanzapine) 5 Mg Tab.rapdis 2.5 Mg PO PRN Q4HRS PRN Milk Of Magnesia (Magnesium Hydroxide) 2,400 Mg/10 Ml Oral.susp 2,400 Mg PO PRN QHS PRN Advanced Antacid Liquid (Mag Hydrox/Al Hydrox/Simeth) 355 Ml Oral.susp 15 Ml PO PRN AFTMEALHC PRN Culturelle (Lactobacillus Rhamnosus Gg) 1 Each Capsule 1 Each PO BID Duoneb 0.5-3(2.5) Mg/3 Ml (Albuterol/Ipratropium) 3 Ml Ampul.neb 3 Ml NEB QID Depakote Sprinkle (Divalproex Sodium) 125 Mg Cap.sprink 250 Mg PO BID Vitamin D3 (Cholecalciferol (Vitamin D3)) 5,000 Unit Tablet 50,000 Unit PO WEEKLY Calcium 500 + Vit D 400 Tablet (Calcium Carbonate/Vitamin D3) 1 Each Tablet 1 Each PO DAILY Pulmicort (Budesonide) 0.5 Mg/2 Ml Ampul.neb 0.5 Mg NEB RTBID Tylenol (Acetaminophen) 325 Mg Tablet 650 Mg PO PRN Q6HRS PRN Multivitamins (Multivitamin) 1 Each Tablet 1 Each PO DAILY Nystatin-Triamcinolone Cream (Nystatin/Triamcin) 15 Gm Cream..g. 1 Amy TP BID Guaifenesin 200 Mg Tablet 200 Mg PO DAILY Glucosamine (Glucosamine Sulfate 2KCL) 1,000 Mg Tablet 1,000 Mg PO DAILY Flomax (Tamsulosin Hcl) 0.4 Mg Cap.er.24h 0.4 Mg PO DAILY Zoloft (Sertraline Hcl) 50 Mg Tablet 50 Mg PO DAILY EXELON 13.3mg/24hr (Rivastigmine) 1 Each Patch.td24 1 Patch TD DAILY Pain-Relief Cream (Methyl Salicylate/Menth/Camph) 113.3 Gm Cream..g. 1 Amy TP PRN BID PRN Levothyroxine Sodium 137 Mcg Tablet 137 Mcg PO DAILYAC Ferrous Gluconate 324 Mg Tablet 324 Mg PO DAILY Proair Hfa Inhaler (Albuterol Sulfate) 8.5 Gm Hfa.aer.ad 1 Puff INH PRN Q6HRS PRN Trazodone Hcl 50 Mg Tablet 150 Mg PO QHS I have reviewed the current psychotropics carefully including drug interactions. Risk benefit ratio favors no change other than as noted in my dictated progress note. Diagnosis: Problems: (1) Anxiety disorder (2) Impulse control disorder (3) Dementia, vascular, with depression (4) Dementia, vascular, with delusions (5) Dementia in Alzheimer's disease with depression (6) Dementia in Alzheimer's disease with delusions (7) Dementia with behavioral disturbance MYLES SHORT MD Feb 09, 2019 22:39
--- NOTE | 2019-02-09 23:59 | PN ---
DATE: 02/08/2019 PSYCHIATRIC PROGRESS NOTE This is a late entry, date of service 02/08/2019 covers elements not covered in my initial note. SUBJECTIVE: I met with the patient evening of 02/08/2019. The patient slept 6-3/4 hours previous night. He remains confused, wandering the hallways, has not needed any PRNs. REVIEW OF SYSTEMS: No CV, , pulmonary, eye, ENT system symptoms on review. Reliability poor. MENTAL STATUS EXAM: Oriented to himself. Insight, judgment, recent and remote memory, attention, concentration, fund of knowledge poor, consistent with his diagnosis. PLAN: Continue psychotropics from initial note for now. As I met with him, he is pointing that he wanted to go out on the patio and wanted to jump over the fence, but was redirected as I interacted with him. MAN Leyla SHORT MD DR: RICHARD/ruiz JOB#: [id number] / [id number]
[2019-02-10] MEDS: ALBUTEROL SULFATE 2.5 MG/3 ML NEBU. INH PRN (04:39)
[2019-02-10] MEDS: LEVOTHYROXINE 137 MCG TABLET PO SCH (06:11)
[2019-02-10 06:22] VITALS: BP 153/82
[2019-02-10] MEDS: RIVASTIGMINE 13.3MG PATCH. TD SCH (08:30)
[2019-02-10] MEDS: CALCIUM CARB/VIT D3 500/200 TABLET PO SCH (08:31)
[2019-02-10] MEDS: TAMSULOSIN 0.4 MG CAP.ER.24H. PO SCH (08:31)
[2019-02-10] MEDS: GLUCOSAMINE 500 MG CAPSULE PO SCH (08:31)
[2019-02-10] MEDS: SERTRALINE 50 MG TABLET. PO SCH (08:31)
[2019-02-10] MEDS: MULTIVITAMIN with MINERAL TABLET. PO SCH (08:31)
[2019-02-10] MEDS: LACTOBACILLUS RHAMNOSUS GG 1 CAPSULE. PO SCH ×2 (08:31→20:12)
[2019-02-10] MEDS: FERROUS SULFATE 325 MG TABLET. PO SCH (08:32)
[2019-02-10] MEDS: DIVALPROEX 125 MG CAP.SPRINK PO SCH ×2 (08:32→20:11)
[2019-02-10] MEDS: BUDESONIDE 0.5 MG/2 ML NEBU NEB SCH ×2 (10:45→20:00)
[2019-02-10] MEDS: IPRATRPIUM/ALBUTEROL 0.5/2.5MG 3 ML NEBU. NEB SCH ×4 (10:45→21:00)
[2019-02-10 16:08] VITALS: BP 101/66
[2019-02-10] MEDS: MIRTAZAPINE 7.5 MG TABLET. PO SCH (20:12)
[2019-02-10] MEDS: traZODone 150 MG TABLET. PO SCH (20:12)
--- NOTE | 2019-02-10 22:24 | PDOC ---
Exam Note: Tony Note: Please also refer to the separate dictated note~for this date of service dictated separately.~Patient seen individually. Discussed the patient with Nursing staff reviewed the chart.~Reviewed interim history and current functioning. Reviewed vital signs,~Labs/ Radiology~and current medications noted below. Continue current treatment with the changes noted in the dictated addendum note Assessment: Vital Signs: Vital Signs Date Time Temp Pulse Resp B/P (MAP) Pulse Ox O2 Delivery O2 Flow Rate FiO2 02/10/19 21:27 Room Air 02/10/19 16:08 97.4 92 18 101/66 (78) 96 02/10/19 06:22 2.0 I&O Intake and Output 02/10/19 07:00 Intake Total 920 ml Balance 920 ml Intake Oral 920 ml # Voids 1 Current Medications: Meds: Current Medications Acetaminophen (Tylenol) 650 mg PRN Q6HRS PRN PO PAIN / TEMP; Start 01/25/19 at 12:30; Stop 01/25/19 at 13:54; Status DC Multi-Ingredient Ointment (Analgesic [place]) 1 amy PRN QID PRN TP MUSCLE PAIN; Start 01/25/19 at 12:30 Al Hydroxide/Mg Hydroxide (Mylanta Plus Xs) 15 ml PRN AFTMEALHC PRN PO DY SPEPSIA; Start 01/25/19 at 12:30 Magnesium Hydroxide (Milk Of Magnesia) 2,400 mg PRN QHS PRN PO CONSTIPATION Last administered on 02/05/19at 05:07; Start 01/25/19 at 12:30 Acetaminophen (Tylenol) 650 mg PRN Q6HRS PRN PO PAIN / TEMP Last administered on 02/04/19at 00:01; Start 01/25/19 at 13:30 Albuterol Sulfate (Ventolin) 2.5 mg PRN Q6HRS PRN INH SHORTNESS OF BREATH Last administered on 02/10/19at 04:39; Start 01/25/19 at 13:30 Guaifenesin (Guaifenesin) 200 mg DAILY PO Last administered on 02/10/19at 08:32; Start 01/26/19 at 09:00 Albuterol/ Ipratropium (Duoneb) 3 ml QID NEB Last administered on 02/10/19at 21:00; Start 01/25/19 at 17:00 Levothyroxine Sodium (Synthroid) 137 mcg DAILY06 PO Last administered on 02/10/19 06:11; Start 01/26/19 at 06:00 Olanzapine (ZyPREXA ZYDIS) 2.5 mg PRN Q4HRS PRN PO ANXIETY / AGITATION Last administered on 02/08/19 21:27; Start 01/25/19 at 13:30 Rivastigmine (Exelon 13.3mg) 1 patch DAILY TD Last administered on 02/10/19 08:30; Start 01/26/19 at 09:00 Sertraline HCl (Zoloft) 50 mg DAILY PO Last administered on 02/01/19 07:53; Start 01/26/19 at 09:00; Stop 02/01/19 at 16:43; Status DC Tamsulosin HCl (Flomax) 0.4 mg DAILY PO Last administered on 02/10/19 08:31; Start 01/26/19 at 09:00 Non-Formulary Medication (Budesonide (Pulmicort)) 0.5 mg RTBID NEB ; Start 01/25/19 at 20:00; Stop 01/25/19 at 20:00; Status DC Calcium/Vitamin D (Oscal D 500mg/ 200uts) 1 tab DAILY PO Last administered on 02/10/19 08:31; Start 01/26/19 at 09:00 Vitamin D (Vitamin D3) 50,000 unit WEEKLY PO Last administered on 02/04/19 08:09; Start 01/28/19 at 09:00 Divalproex Sodium (Depakote Sprinkles) 250 mg BID PO Last administered on 02/03/19 08:55; Start 01/25/19 at 21:00; Stop 02/03/19 at 16:42; Status DC Ferrous Sulfate (Feosol) 325 mg DAILYWBKFT PO Last administered on 02/10/19 08:32; Start 01/26/19 at 08:00 Glucosamine Sulfate (Glucosamine) 1,000 mg DAILY PO Last administered on 02/10/19 08:31; Start 01/26/19 at 09:00 Haloperidol Lactate (Haldol) 5 mg PRN Q4HRS PRN IM ANXIETY/AGITATION Last administered on 02/03/19 11:37; Start 01/25/19 at 13:45 Lactobacillus Rhamnosus (Culturelle) 1 cap BID PO Last administered on 02/10/19 20:12; Start 01/25/19 at 21:00 Non-Formulary Medication (Mag Hydrox/Al Hydrox/Simeth (Advanced Antacid Liquid)) 15 ml PRN AFTMEALHC PRN PO DYSPEPSIA; Start 01/25/19 at 13:30; Stop 01/25/19 at 13:47; Status DC Non-Formulary Medication (Magnesium Hydroxide (Milk Of Magnesia)) 2,400 mg PRN QHS PRN PO CONSTIPATION; Start 01/25/19 at 13:30; Stop 01/25/19 at 13:47; Status DC Non-Formulary Medication (Methyl Salicylate/Menth/ Camph (Pain-Relief Cream)) 1 amy PRN BID PRN TP foot pain; Start 01/25/19 at 13:30; Stop 01/25/19 at 13:47; Status DC Multivitamins/ Calcium (Thera-M Plus) 1 tab DAILY PO Last administered on 02/10/19 08:31; Start 01/26/19 at 09:00 Nystatin/ Triamcinolone Acetonide (Mycolog Ii) 1 amy BID TP Last administered on 01/27/19 08:16; Start 01/25/19 at 21:00; Stop 01/27/19 at 17:01; Status DC Olanzapine (ZyPREXA ZYDIS) 10 mg QHS PO Last administered on 02/10/19 20:12; Start 01/25/19 at 21:00 Trazodone HCl (Desyrel) 150 mg QHS PO Last administered on 02/10/19 20:12; Start 01/25/19 at 21:00 Budesonide (Pulmicort) 0.5 mg RTBID NEB Last administered on 02/10/19 20:00; Start 01/25/19 at 20:00 Mirtazapine (Remeron) 7.5 mg QHS PO Last administered on 02/10/19 20:12; Start 01/26/19 at 21:00 Nystatin/ Triamcinolone Acetonide (Mycolog Ii) 1 amy PRN BID PRN TP AFFECTED AREA; Start 5/24/19 at 21:00 Sertraline HCl (Zoloft) 75 mg DAILY PO Last administered on 02/10/19at 08:31; Start 02/02/19 at 09:00 Divalproex Sodium (Depakote Sprinkles) 375 mg BID PO Last administered on 02/10/19at 20:11; Start 02/03/19 at 21:00 Active Scripts Active Reported Haloperidol 5 Mg Tablet 5 Mg IM PRN Q4HRS PRN Zyprexa Zydis (Olanzapine) 10 Mg Tab.rapdis 10 Mg PO QHS Zyprexa Zydis (Olanzapine) 5 Mg Tab.rapdis 2.5 Mg PO PRN Q4HRS PRN Milk Of Magnesia (Magnesium Hydroxide) 2,400 Mg/10 Ml Oral.susp 2,400 Mg PO PRN QHS PRN Advanced Antacid Liquid (Mag Hydrox/Al Hydrox/Simeth) 355 Ml Oral.susp 15 Ml PO PRN AFTMEALHC PRN Culturelle (Lactobacillus Rhamnosus Gg) 1 Each Capsule 1 Each PO BID Duoneb 0.5-3(2.5) Mg/3 Ml (Albuterol/Ipratropium) 3 Ml Ampul.neb 3 Ml NEB QID Depakote Sprinkle (Divalproex Sodium) 125 Mg Cap.sprink 250 Mg PO BID Vitamin D3 (Cholecalciferol (Vitamin D3)) 5,000 Unit Tablet 50,000 Unit PO WEEKLY Calcium 500 + Vit D 400 Tablet (Calcium Carbonate/Vitamin D3) 1 Each Tablet 1 Each PO DAILY Pulmicort (Budesonide) 0.5 Mg/2 Ml Ampul.neb 0.5 Mg NEB RTBID Tylenol (Acetaminophen) 325 Mg Tablet 650 Mg PO PRN Q6HRS PRN Multivitamins (Multivitamin) 1 Each Tablet 1 Each PO DAILY Nystatin-Triamcinolone Cream (Nystatin/Triamcin) 15 Gm Cream..g. 1 Amy TP BID Guaifenesin 200 Mg Tablet 200 Mg PO DAILY Glucosamine (Glucosamine Sulfate 2KCL) 1,000 Mg Tablet 1,000 Mg PO DAILY Flomax (Tamsulosin Hcl) 0.4 Mg Cap.er.24h 0.4 Mg PO DAILY Zoloft (Sertraline Hcl) 50 Mg Tablet 50 Mg PO DAILY EXELON 13.3mg/24hr (Rivastigmine) 1 Each Patch.td24 1 Patch TD DAILY Pain-Relief Cream (Methyl Salicylate/Menth/Camph) 113.3 Gm Cream..g. 1 Amy TP PRN BID PRN Levothyroxine Sodium 137 Mcg Tablet 137 Mcg PO DAILYAC Ferrous Gluconate 324 Mg Tablet 324 Mg PO DAILY Proair Hfa Inhaler (Albuterol Sulfate) 8.5 Gm Hfa.aer.ad 1 Puff INH PRN Q6HRS PRN Trazodone Hcl 50 Mg Tablet 150 Mg PO QHS I have reviewed the current psychotropics carefully including drug interactions. Risk benefit ratio favors no change other than as noted in my dictated progress note. Diagnosis: Problems: (1) Anxiety disorder (2) Impulse control disorder (3) Dementia, vascular, with depression (4) Dementia, vascular, with delusions (5) Dementia in Alzheimer's disease with depression (6) Dementia in Alzheimer's disease with delusions (7) Dementia with behavioral disturbance MYLES SHORT MD Feb 10, 2019 22:24
[2019-02-11] MEDS: BUDESONIDE 0.5 MG/2 ML NEBU NEB SCH ×2 (04:57→20:00)
[2019-02-11] MEDS: IPRATRPIUM/ALBUTEROL 0.5/2.5MG 3 ML NEBU. NEB SCH ×4 (04:58→21:00)
[2019-02-11 06:41] VITALS: BP 132/82
[2019-02-11] MEDS: LEVOTHYROXINE 137 MCG TABLET PO SCH (06:44)
[2019-02-11] MEDS: DIVALPROEX 125 MG CAP.SPRINK PO SCH ×2 (07:50→20:29)
[2019-02-11] MEDS: MULTIVITAMIN with MINERAL TABLET. PO SCH (07:51)
[2019-02-11] MEDS: CALCIUM CARB/VIT D3 500/200 TABLET PO SCH (07:51)
[2019-02-11] MEDS: GLUCOSAMINE 500 MG CAPSULE PO SCH (07:52)
[2019-02-11] MEDS: SERTRALINE 50 MG TABLET. PO SCH (07:52)
[2019-02-11] MEDS: TAMSULOSIN 0.4 MG CAP.ER.24H. PO SCH (07:52)
[2019-02-11] MEDS: FERROUS SULFATE 325 MG TABLET. PO SCH (07:53)
[2019-02-11] MEDS: LACTOBACILLUS RHAMNOSUS GG 1 CAPSULE. PO SCH ×2 (07:53→20:30)
[2019-02-11] MEDS: RIVASTIGMINE 13.3MG PATCH. TD SCH (07:54)
[2019-02-11] MEDS: CHOLECALCIFEROL (VITAMIN D3) 50,000 UNIT CAPSULE PO SCH (07:56)
--- NOTE | 2019-02-11 14:32 | PN ---
DATE: 02/09/2019 PSYCHIATRIC PROGRESS NOTE This late entry 02/09/2019 covers elements not covered in my initial note. SUBJECTIVE: I met with the patient in the evening of 02/09/2019 and staffed a treatment team meeting with the entire team in the morning. Reviewed his history, diagnoses, medications, progress, discharge plans at length. The patient slept 6 hours. Appetite 100%. He was up the previous evening, not withdrawn to his room and was in the dayroom until about 4:30 during the day. He remains confused ____ REVIEW OF SYSTEMS: No CV, , pulmonary, eye, ENT system symptoms on review. Reliability poor. MENTAL STATUS EXAM: Oriented to himself. Insight, judgment, remote memory, attention, concentration, fund of knowledge poor consistent with his diagnosis mentioned in my initial note. PLAN: No change from initial note. MAN Leyla SHORT MD DR: RICHARD/ruiz JOB#: [id number] / [id number]
[2019-02-11 16:06] VITALS: BP 106/77
--- NOTE | 2019-02-11 16:19 | PN ---
DATE: 02/10/2019 PSYCHIATRIC PROGRESS NOTE This late entry of 02/10/2019 covers elements not covered in my initial note. SUBJECTIVE: I met with the patient in the evening. The patient slept 7 hours previous night. At night, he was up in the day room until about 4:30 a.m. somewhat confused. REVIEW OF SYSTEMS: No CV, , pulmonary, eye, ENT system symptoms on review. Reliability poor. MENTAL STATUS EXAM: Oriented to himself. Insight, judgment, recent and remote memory, attention, concentration, fund of knowledge poor consistent with his diagnosis mentioned in my initial note. PLAN: No change from initial note. MAN Leyla SHORT MD DR: RICHARD/ruiz JOB#: [id number] / [id number]
[2019-02-11] MEDS: ACETAMINOPHEN 325 MG TABLET PO PRN (17:41)
[2019-02-11] MEDS: MIRTAZAPINE 7.5 MG TABLET. PO SCH (20:29)
[2019-02-11] MEDS: traZODone 150 MG TABLET. PO SCH (20:30)
--- NOTE | 2019-02-11 20:40 | PDOC ---
Exam Note: Tony Note: Please also refer to the separate dictated note~for this date of service dictated separately.~Patient seen individually. Discussed the patient with Nursing staff reviewed the chart.~Reviewed interim history and current functioning. Reviewed vital signs,~Labs/ Radiology~and current medications noted below. Continue current treatment with the changes noted in the dictated addendum note Assessment: Vital Signs: Vital Signs Date Time Temp Pulse Resp B/P (MAP) Pulse Ox O2 Delivery O2 Flow Rate FiO2 02/11/19 16:06 98.0 86 20 106/77 (87) 97 Room Air 02/11/19 05:02 2.0 I&O Intake and Output 02/11/19 07:00 Intake Total 960 ml Balance 960 ml Intake Oral 960 ml # Voids 2 # Bowel Movements 1 Current Medications: Meds: Current Medications Acetaminophen (Tylenol) 650 mg PRN Q6HRS PRN PO PAIN / TEMP; Start 01/25/19 at 12:30; Stop 01/25/19 at 13:54; Status DC Multi-Ingredient Ointment (Analgesic [place]) 1 amy PRN QID PRN TP MUSCLE PAIN; Start 01/25/19 at 12:30 Al Hydroxide/Mg Hydroxide (Mylanta Plus Xs) 15 ml PRN AFTMEALHC PRN PO DYS PEPSIA; Start 01/25/19 at 12:30 Magnesium Hydroxide (Milk Of Magnesia) 2,400 mg PRN QHS PRN PO CONSTIPATION Last administered on 02/05/19 05:07; Start 01/25/19 at 12:30 Acetaminophen (Tylenol) 650 mg PRN Q6HRS PRN PO PAIN / TEMP Last administered on 02/11/19at 17:41; Start 01/25/19 at 13:30 Albuterol Sulfate (Ventolin) 2.5 mg PRN Q6HRS PRN INH SHORTNESS OF BREATH Last administered on 02/10/19 04:39; Start 01/25/19 at 13:30 Guaifenesin (Guaifenesin) 200 mg DAILY PO Last administered on 02/11/19 07:53; Start 01/26/19 at 09:00 Albuterol/ Ipratropium (Duoneb) 3 ml QID NEB Last administered on 02/11/19at 15:48; Start 01/25/19 at 17:00 Levothyroxine Sodium (Synthroid) 137 mcg DAILY06 PO Last administered on 02/11/19 06:44; Start 01/26/19 at 06:00 Olanzapine (ZyPREXA ZYDIS) 2.5 mg PRN Q4HRS PRN PO ANXIETY / AGITATION Last administered on 02/08/19 21:27; Start 01/25/19 at 13:30 Rivastigmine (Exelon 13.3mg) 1 patch DAILY TD Last administered on 02/11/19 07:54; Start 01/26/19 at 09:00 Sertraline HCl (Zoloft) 50 mg DAILY PO Last administered on 02/01/19 07:53; Start 01/26/19 at 09:00; Stop 02/01/19 at 16:43; Status DC Tamsulosin HCl (Flomax) 0.4 mg DAILY PO Last administered on 02/11/19 07:52; Start 01/26/19 at 09:00 Non-Formulary Medication (Budesonide (Pulmicort)) 0.5 mg RTBID NEB ; Start 01/25/19 at 20:00; Stop 01/25/19 at 20:00; Status DC Calcium/Vitamin D (Oscal D 500mg/ 200uts) 1 tab DAILY PO Last administered on 02/11/19 07:51; Start 01/26/19 at 09:00 Vitamin D (Vitamin D3) 50,000 unit WEEKLY PO Last administered on 02/11/19 07:56; Start 01/28/19 at 09:00 Divalproex Sodium (Depakote Sprinkles) 250 mg BID PO Last administered on 02/03/19 08:55; Start 01/25/19 at 21:00; Stop 02/03/19 at 16:42; Status DC Ferrous Sulfate (Feosol) 325 mg DAILYWBKFT PO Last administered on 02/11/19 07:53; Start 01/26/19 at 08:00 Glucosamine Sulfate (Glucosamine) 1,000 mg DAILY PO Last administered on 02/11/19 07:52; Start 01/26/19 at 09:00 Haloperidol Lactate (Haldol) 5 mg PRN Q4HRS PRN IM ANXIETY/AGITATION Last administered on 5/31/19at 11:37; Start 01/25/19 at 13:45 Lactobacillus Rhamnosus (Culturelle) 1 cap BID PO Last administered on 02/11/19 20:30; Start 01/25/19 at 21:00 Non-Formulary Medication (Mag Hydrox/Al Hydrox/Simeth (Advanced Antacid Liquid)) 15 ml PRN AFTMEALHC PRN PO DYSPEPSIA; Start 01/25/19 at 13:30; Stop 01/25/19 at 13:47; Status DC Non-Formulary Medication (Magnesium Hydroxide (Milk Of Magnesia)) 2,400 mg PRN QHS PRN PO CONSTIPATION; Start 01/25/19 at 13:30; Stop 01/25/19 at 13:47; Status DC Non-Formulary Medication (Methyl Salicylate/Menth/ Camph (Pain-Relief Cream)) 1 amy PRN BID PRN TP foot pain; Start 01/25/19 at 13:30; Stop 01/25/19 at 13:47; Status DC Multivitamins/ Calcium (Thera-M Plus) 1 tab DAILY PO Last administered on 02/11/19 07:51; Start 01/26/19 at 09:00 Nystatin/ Triamcinolone Acetonide (Mycolog Ii) 1 amy BID TP Last administered on 01/27/19 08:16; Start 01/25/19 at 21:00; Stop 01/27/19 at 17:01; Status DC Olanzapine (ZyPREXA ZYDIS) 10 mg QHS PO Last administered on 02/11/19 20:30; Start 01/25/19 at 21:00 Trazodone HCl (Desyrel) 150 mg QHS PO Last administered on 02/11/19 20:30; Start 01/25/19 at 21:00 Budesonide (Pulmicort) 0.5 mg RTBID NEB Last administered on 02/11/19 04:57; Start 01/25/19 at 20:00 Mirtazapine (Remeron) 7.5 mg QHS PO Last administered on 02/11/19 20:29; Start 01/26/19 at 21:00 Nystatin/ Triamcinolone Acetonide (Mycolog Ii) 1 amy PRN BID PRN TP AFFECTED AREA; Start 01/27/19 at 21:00 Sertraline HCl (Zoloft) 75 mg DAILY PO Last administered on 02/11/19at 07:52; Start 02/02/19 at 09:00 Divalproex Sodium (Depakote Sprinkles) 375 mg BID PO Last administered on 02/11/19at 20:29; Start 02/03/19 at 21:00 Active Scripts Active Reported Haloperidol 5 Mg Tablet 5 Mg IM PRN Q4HRS PRN Zyprexa Zydis (Olanzapine) 10 Mg Tab.rapdis 10 Mg PO QHS Zyprexa Zydis (Olanzapine) 5 Mg Tab.rapdis 2.5 Mg PO PRN Q4HRS PRN Milk Of Magnesia (Magnesium Hydroxide) 2,400 Mg/10 Ml Oral.susp 2,400 Mg PO PRN QHS PRN Advanced Antacid Liquid (Mag Hydrox/Al Hydrox/Simeth) 355 Ml Oral.susp 15 Ml PO PRN AFTMEALHC PRN Culturelle (Lactobacillus Rhamnosus Gg) 1 Each Capsule 1 Each PO BID Duoneb 0.5-3(2.5) Mg/3 Ml (Albuterol/Ipratropium) 3 Ml Ampul.neb 3 Ml NEB QID Depakote Sprinkle (Divalproex Sodium) 125 Mg Cap.sprink 250 Mg PO BID Vitamin D3 (Cholecalciferol (Vitamin D3)) 5,000 Unit Tablet 50,000 Unit PO WEEKLY Calcium 500 + Vit D 400 Tablet (Calcium Carbonate/Vitamin D3) 1 Each Tablet 1 Each PO DAILY Pulmicort (Budesonide) 0.5 Mg/2 Ml Ampul.neb 0.5 Mg NEB RTBID Tylenol (Acetaminophen) 325 Mg Tablet 650 Mg PO PRN Q6HRS PRN Multivitamins (Multivitamin) 1 Each Tablet 1 Each PO DAILY Nystatin-Triamcinolone Cream (Nystatin/Triamcin) 15 Gm Cream..g. 1 Amy TP BID Guaifenesin 200 Mg Tablet 200 Mg PO DAILY Glucosamine (Glucosamine Sulfate 2KCL) 1,000 Mg Tablet 1,000 Mg PO DAILY Flomax (Tamsulosin Hcl) 0.4 Mg Cap.er.24h 0.4 Mg PO DAILY Zoloft (Sertraline Hcl) 50 Mg Tablet 50 Mg PO DAILY EXELON 13.3mg/24hr (Rivastigmine) 1 Each Patch.td24 1 Patch TD DAILY Pain-Relief Cream (Methyl Salicylate/Menth/Camph) 113.3 Gm Cream..g. 1 Amy TP PRN BID PRN Levothyroxine Sodium 137 Mcg Tablet 137 Mcg PO DAILYAC Ferrous Gluconate 324 Mg Tablet 324 Mg PO DAILY Proair Hfa Inhaler (Albuterol Sulfate) 8.5 Gm Hfa.aer.ad 1 Puff INH PRN Q6HRS PRN Trazodone Hcl 50 Mg Tablet 150 Mg PO QHS I have reviewed the current psychotropics carefully including drug interactions. Risk benefit ratio favors no change other than as noted in my dictated progress note. Diagnosis: Problems: (1) Anxiety disorder (2) Impulse control disorder (3) Dementia, vascular, with depression (4) Dementia, vascular, with delusions (5) Dementia in Alzheimer's disease with depression (6) Dementia in Alzheimer's disease with delusions (7) Acute and chronic respiratory failure with hypoxia (8) Obstructive sleep apnea (9) Dementia with behavioral disturbance MYLES SHORT MD Feb 11, 2019 20:40
[2019-02-12] MEDS: IPRATRPIUM/ALBUTEROL 0.5/2.5MG 3 ML NEBU. NEB SCH ×4 (05:18→20:33)
[2019-02-12] MEDS: BUDESONIDE 0.5 MG/2 ML NEBU NEB SCH ×2 (05:18→20:33)
[2019-02-12] MEDS: LEVOTHYROXINE 137 MCG TABLET PO SCH (05:28)
[2019-02-12 05:54] VITALS: BP 144/82
[2019-02-12] MEDS: RIVASTIGMINE 13.3MG PATCH. TD SCH (08:15)
[2019-02-12] MEDS: DIVALPROEX 125 MG CAP.SPRINK PO SCH ×2 (08:15→19:58)
[2019-02-12] MEDS: CALCIUM CARB/VIT D3 500/200 TABLET PO SCH (08:16)
[2019-02-12] MEDS: SERTRALINE 50 MG TABLET. PO SCH (08:16)
[2019-02-12] MEDS: TAMSULOSIN 0.4 MG CAP.ER.24H. PO SCH (08:16)
[2019-02-12] MEDS: FERROUS SULFATE 325 MG TABLET. PO SCH (08:16)
[2019-02-12] MEDS: MULTIVITAMIN with MINERAL TABLET. PO SCH (08:16)
[2019-02-12] MEDS: LACTOBACILLUS RHAMNOSUS GG 1 CAPSULE. PO SCH ×2 (08:17→19:58)
[2019-02-12] MEDS: GLUCOSAMINE 500 MG CAPSULE PO SCH (08:17)
--- NOTE | 2019-02-12 12:17 | PN ---
DATE: 02/11/2019 PSYCHIATRIC PROGRESS NOTE This late entry 02/11/2019 covers elements not covered in my initial note. SUBJECTIVE: I met with the patient in the evening of 02/11/2019. The patient slept 7-1/2 hours previous night. He remains confused, wandering, somewhat sleepy, generally had a good day, redirectable. REVIEW OF SYSTEMS: No CV, , pulmonary, eye, ENT system symptoms on review. Reliability poor. MENTAL STATUS EXAM: Oriented to himself. Insight, judgment, recent and remote memory, attention, concentration, fund of knowledge poor consistent with his diagnosis mentioned in my initial note. IMPRESSION: Unchanged from initial note. PLAN: No change from initial note. Valproic acid level 48, slightly subtherapeutic, but clinically adequate for now. MAN Leyla SHORT MD DR: RICHARD/ruiz JOB#: [id number] / [id number]
[2019-02-12 15:44] VITALS: BP 108/70
[2019-02-12] MEDS: traZODone 150 MG TABLET. PO SCH (19:58)
[2019-02-12] MEDS: MIRTAZAPINE 7.5 MG TABLET. PO SCH (19:58)
--- NOTE | 2019-02-12 22:42 | PDOC ---
Exam Note: Tony Note: Please also refer to the separate dictated note~for this date of service dictated separately.~Patient seen individually. Discussed the patient with Nursing staff reviewed the chart.~Reviewed interim history and current functioning. Reviewed vital signs,~Labs/ Radiology~and current medications noted below. Continue current treatment with the changes noted in the dictated addendum note Assessment: Vital Signs: Vital Signs Date Time Temp Pulse Resp B/P (MAP) Pulse Ox O2 Delivery O2 Flow Rate FiO2 02/12/19 20:37 Room Air 02/12/19 15:44 97.5 82 14 108/70 (83) 94 02/11/19 05:02 2.0 I&O Intake and Output 02/12/19 06:59 Intake Total 840 ml Balance 840 ml Intake Oral 840 ml # Voids 1 Current Medications: Meds: Current Medications Acetaminophen (Tylenol) 650 mg PRN Q6HRS PRN PO PAIN / TEMP; Start 01/25/19 at 12:30; Stop 01/25/19 at 13:54; Status DC Multi-Ingredient Ointment (Analgesic [place]) 1 amy PRN QID PRN TP MUSCLE PAIN; Start 01/25/19 at 12:30 Al Hydroxide/Mg Hydroxide (Mylanta Plus Xs) 15 ml PRN AFTMEALHC PRN PO DY SPEPSIA; Start 01/25/19 at 12:30 Magnesium Hydroxide (Milk Of Magnesia) 2,400 mg PRN QHS PRN PO CONSTIPATION Last administered on 02/05/19 05:07; Start 01/25/19 at 12:30 Acetaminophen (Tylenol) 650 mg PRN Q6HRS PRN PO PAIN / TEMP Last administered on 02/11/19at 17:41; Start 01/25/19 at 13:30 Albuterol Sulfate (Ventolin) 2.5 mg PRN Q6HRS PRN INH SHORTNESS OF BREATH Last administered on 02/10/19 04:39; Start 01/25/19 at 13:30 Guaifenesin (Guaifenesin) 200 mg DAILY PO Last administered on 02/12/19 08:24; Start 01/26/19 at 09:00 Albuterol/ Ipratropium (Duoneb) 3 ml QID NEB Last administered on 02/12/19at 20:33; Start 01/25/19 at 17:00 Levothyroxine Sodium (Synthroid) 137 mcg DAILY06 PO Last administered on 02/12/19 05:28; Start 01/26/19 at 06:00 Olanzapine (ZyPREXA ZYDIS) 2.5 mg PRN Q4HRS PRN PO ANXIETY / AGITATION Last administered on 02/12/19 00:18; Start 01/25/19 at 13:30 Rivastigmine (Exelon 13.3mg) 1 patch DAILY TD Last administered on 02/12/19 08:15; Start 01/26/19 at 09:00 Sertraline HCl (Zoloft) 50 mg DAILY PO Last administered on 02/01/19 07:53; Start 01/26/19 at 09:00; Stop 02/01/19 at 16:43; Status DC Tamsulosin HCl (Flomax) 0.4 mg DAILY PO Last administered on 02/12/19 08:16; Start 01/26/19 at 09:00 Non-Formulary Medication (Budesonide (Pulmicort)) 0.5 mg RTBID NEB ; Start 01/25/19 at 20:00; Stop 01/25/19 at 20:00; Status DC Calcium/Vitamin D (Oscal D 500mg/ 200uts) 1 tab DAILY PO Last administered on 02/12/19 08:16; Start 01/26/19 at 09:00 Vitamin D (Vitamin D3) 50,000 unit WEEKLY PO Last administered on 02/11/19 07:56; Start 01/28/19 at 09:00 Divalproex Sodium (Depakote Sprinkles) 250 mg BID PO Last administered on 02/03/19 08:55; Start 01/25/19 at 21:00; Stop 02/03/19 at 16:42; Status DC Ferrous Sulfate (Feosol) 325 mg DAILYWBKFT PO Last administered on 02/12/19 08:16; Start 01/26/19 at 08:00 Glucosamine Sulfate (Glucosamine) 1,000 mg DAILY PO Last administered on 02/12/19 08:17; Start 01/26/19 at 09:00 Haloperidol Lactate (Haldol) 5 mg PRN Q4HRS PRN IM ANXIETY/AGITATION Last administered on 02/03/19 11:37; Start 01/25/19 at 13:45 Lactobacillus Rhamnosus (Culturelle) 1 cap BID PO Last administered on 02/12/19 19:58; Start 01/25/19 at 21:00 Non-Formulary Medication (Mag Hydrox/Al Hydrox/Simeth (Advanced Antacid Liquid)) 15 ml PRN AFTMEALHC PRN PO DYSPEPSIA; Start 01/25/19 at 13:30; Stop 01/25/19 at 13:47; Status DC Non-Formulary Medication (Magnesium Hydroxide (Milk Of Magnesia)) 2,400 mg PRN QHS PRN PO CONSTIPATION; Start 01/25/19 at 13:30; Stop 01/25/19 at 13:47; Status DC Non-Formulary Medication (Methyl Salicylate/Menth/ Camph (Pain-Relief Cream)) 1 amy PRN BID PRN TP foot pain; Start 01/25/19 at 13:30; Stop 01/25/19 at 13:47; Status DC Multivitamins/ Calcium (Thera-M Plus) 1 tab DAILY PO Last administered on 02/12/19 08:16; Start 01/26/19 at 09:00 Nystatin/ Triamcinolone Acetonide (Mycolog Ii) 1 amy BID TP Last administered on 01/27/19 08:16; Start 01/25/19 at 21:00; Stop 01/27/19 at 17:01; Status DC Olanzapine (ZyPREXA ZYDIS) 10 mg QHS PO Last administered on 02/12/19 19:58; Start 01/25/19 at 21:00 Trazodone HCl (Desyrel) 150 mg QHS PO Last administered on 02/12/19 19:58; Start 01/25/19 at 21:00 Budesonide (Pulmicort) 0.5 mg RTBID NEB Last administered on 02/12/19 20:33; Start 01/25/19 at 20:00 Mirtazapine (Remeron) 7.5 mg QHS PO Last administered on 02/12/19 19:58; Start 01/26/19 at 21:00 Nystatin/ Triamcinolone Acetonide (Mycolog Ii) 1 amy PRN BID PRN TP AFFECTED AREA; Start 5/24/19 at 21:00 Sertraline HCl (Zoloft) 75 mg DAILY PO Last administered on 02/12/19at 08:16; Start 02/02/19 at 09:00 Divalproex Sodium (Depakote Sprinkles) 375 mg BID PO Last administered on 02/12/19at 19:58; Start 02/03/19 at 21:00 Active Scripts Active Reported Haloperidol 5 Mg Tablet 5 Mg IM PRN Q4HRS PRN Zyprexa Zydis (Olanzapine) 10 Mg Tab.rapdis 10 Mg PO QHS Zyprexa Zydis (Olanzapine) 5 Mg Tab.rapdis 2.5 Mg PO PRN Q4HRS PRN Milk Of Magnesia (Magnesium Hydroxide) 2,400 Mg/10 Ml Oral.susp 2,400 Mg PO PRN QHS PRN Advanced Antacid Liquid (Mag Hydrox/Al Hydrox/Simeth) 355 Ml Oral.susp 15 Ml PO PRN AFTMEALHC PRN Culturelle (Lactobacillus Rhamnosus Gg) 1 Each Capsule 1 Each PO BID Duoneb 0.5-3(2.5) Mg/3 Ml (Albuterol/Ipratropium) 3 Ml Ampul.neb 3 Ml NEB QID Depakote Sprinkle (Divalproex Sodium) 125 Mg Cap.sprink 250 Mg PO BID Vitamin D3 (Cholecalciferol (Vitamin D3)) 5,000 Unit Tablet 50,000 Unit PO WEEKLY Calcium 500 + Vit D 400 Tablet (Calcium Carbonate/Vitamin D3) 1 Each Tablet 1 Each PO DAILY Pulmicort (Budesonide) 0.5 Mg/2 Ml Ampul.neb 0.5 Mg NEB RTBID Tylenol (Acetaminophen) 325 Mg Tablet 650 Mg PO PRN Q6HRS PRN Multivitamins (Multivitamin) 1 Each Tablet 1 Each PO DAILY Nystatin-Triamcinolone Cream (Nystatin/Triamcin) 15 Gm Cream..g. 1 Amy TP BID Guaifenesin 200 Mg Tablet 200 Mg PO DAILY Glucosamine (Glucosamine Sulfate 2KCL) 1,000 Mg Tablet 1,000 Mg PO DAILY Flomax (Tamsulosin Hcl) 0.4 Mg Cap.er.24h 0.4 Mg PO DAILY Zoloft (Sertraline Hcl) 50 Mg Tablet 50 Mg PO DAILY EXELON 13.3mg/24hr (Rivastigmine) 1 Each Patch.td24 1 Patch TD DAILY Pain-Relief Cream (Methyl Salicylate/Menth/Camph) 113.3 Gm Cream..g. 1 Amy TP PRN BID PRN Levothyroxine Sodium 137 Mcg Tablet 137 Mcg PO DAILYAC Ferrous Gluconate 324 Mg Tablet 324 Mg PO DAILY Proair Hfa Inhaler (Albuterol Sulfate) 8.5 Gm Hfa.aer.ad 1 Puff INH PRN Q6HRS PRN Trazodone Hcl 50 Mg Tablet 150 Mg PO QHS I have reviewed the current psychotropics carefully including drug interactions. Risk benefit ratio favors no change other than as noted in my dictated progress note. Diagnosis: Problems: (1) Anxiety disorder (2) Impulse control disorder (3) Dementia, vascular, with depression (4) Dementia, vascular, with delusions (5) Dementia in Alzheimer's disease with depression (6) Dementia in Alzheimer's disease with delusions (7) Dementia with behavioral disturbance MYLES SHORT MD Feb 12, 2019 22:42
[2019-02-13] MEDS: BUDESONIDE 0.5 MG/2 ML NEBU NEB SCH ×2 (05:14→20:30)
[2019-02-13] MEDS: IPRATRPIUM/ALBUTEROL 0.5/2.5MG 3 ML NEBU. NEB SCH ×4 (05:14→20:30)
[2019-02-13] MEDS: LEVOTHYROXINE 137 MCG TABLET PO SCH (05:40)
[2019-02-13 05:54] VITALS: BP 162/93
[2019-02-13 07:28] LABS: BASO % 1 % (0-3); EOS # 0.2 x10^3/uL (0.0-0.7); EOS % 5 % (0-3); HEMATOCRIT 38.4 % (39.0-53.0); HEMOGLOBIN 12.8 g/dL (13.0-17.5); LYMPH # 0.7 x10^3/uL (1.0-4.8); LYMPH % 15 % (24-48); MEAN CORPUSCULAR HEMOGLOBIN 31 pg (25-35); MEAN CORPUSCULAR HGB CONC 33 g/dL (31-37); MEAN CORPUSCULAR VOLUME 94 fL (79-100); MONO # 0.6 x10^3/uL (0.0-1.1); MONO % 14 % (0-9); NEUT # 2.9 x10^3uL (1.8-7.7); NEUT % 65 % (31-73); PLATELET COUNT 242 x10^3/uL (140-400); RED CELL DISTRIBUTION WIDTH 14.7 % (11.5-14.5); WHITE BLOOD COUNT 4.5 x10^3/uL (4.0-11.0)
[2019-02-13 08:01] LABS: ALBUMIN 2.9 g/dL (3.4-5.0); ALBUMIN/GLOBULIN RATIO 0.7 (1.0-1.7); CALCIUM 8.7 mg/dL (8.5-10.1); CREATININE 1.5 mg/dL (0.7-1.3); GFR 44.8; POTASSIUM 4.3 mmol/L (3.5-5.1); TOTAL BILIRUBIN 0.3 mg/dL (0.2-1.0); TOTAL PROTEIN 6.8 g/dL (6.4-8.2)
[2019-02-13] MEDS: RIVASTIGMINE 13.3MG PATCH. TD SCH (08:52)
[2019-02-13] MEDS: CALCIUM CARB/VIT D3 500/200 TABLET PO SCH (08:53)
[2019-02-13] MEDS: FERROUS SULFATE 325 MG TABLET. PO SCH (08:54)
[2019-02-13] MEDS: DIVALPROEX 125 MG CAP.SPRINK PO SCH ×2 (08:54→19:22)
[2019-02-13] MEDS: MULTIVITAMIN with MINERAL TABLET. PO SCH (08:55)
[2019-02-13] MEDS: GLUCOSAMINE 500 MG CAPSULE PO SCH (08:55)
[2019-02-13] MEDS: TAMSULOSIN 0.4 MG CAP.ER.24H. PO SCH (08:55)
[2019-02-13] MEDS: LACTOBACILLUS RHAMNOSUS GG 1 CAPSULE. PO SCH ×2 (08:55→19:21)
[2019-02-13] MEDS: SERTRALINE 50 MG TABLET. PO SCH (08:55)
--- NOTE | 2019-02-13 11:22 | PN ---
DATE: 02/12/2019 PSYCHIATRIC PROGRESS NOTE This late entry, 02/12/2019, covers elements not covered in my initial note. SUBJECTIVE: I met with the patient in the evening. The patient slept 5-1/4 hours previous night. The patient remains confused, pleasant, has been wandering in the unit, less obsessed with eloping. No PRNs have been used. REVIEW OF SYSTEMS: No CV, , pulmonary, eye, ENT system symptoms on review. Reliability poor. MENTAL STATUS EXAM: Oriented to himself. Insight, judgment, recent and remote memory, attention, concentration, fund of knowledge poor, consistent with his diagnosis mentioned in my initial note. PLAN: No change from initial note. Valproic acid level subtherapeutic, but he is doing well enough with the slightly lower dosage, tolerating it well without side effects. If behaviors resurface, we may need to increase the Depakote to reach therapeutic level. MYLES SHORT MD DR: RICHARD/ruiz JOB#: [id number] / [id number]
[2019-02-13 15:44] VITALS: BP 107/73
[2019-02-13] MEDS: traZODone 150 MG TABLET. PO SCH (19:21)
[2019-02-13] MEDS: MIRTAZAPINE 7.5 MG TABLET. PO SCH (19:21)
--- NOTE | 2019-02-13 22:34 | PDOC ---
Exam Note: Tony Note: Please also refer to the separate dictated note~for this date of service dictated separately.~Patient seen individually. Discussed the patient with Nursing staff reviewed the chart.~Reviewed interim history and current functioning. Reviewed vital signs,~Labs/ Radiology~and current medications noted below. Continue current treatment with the changes noted in the dictated addendum note Assessment: Vital Signs: Vital Signs Date Time Temp Pulse Resp B/P (MAP) Pulse Ox O2 Delivery O2 Flow Rate FiO2 02/13/19 16:46 Room Air 02/13/19 15:44 97.6 94 18 107/73 (84) 93 02/11/19 05:02 2.0 I&O Intake and Output 02/13/19 07:00 Intake Total 980 ml Balance 980 ml Intake Oral 980 ml # Voids 1 Labs: Laboratory Tests Test 02/13/19 07:03 White Blood Count 4.5 x10^3/uL (4.0-11.0) Red Blood Count 4.10 x10^6/uL (4.30-5.70) L Hemoglobin 12.8 g/dL (13.0-17.5) L Hematocrit 38.4 % (39.0-53.0) L Mean Corpuscular Volume 94 fL (79-100) Mean Corpuscular Hemoglobin 31 pg (25-35) Mean Corpuscular Hemoglobin Concent 33 g/dL (31-37) Red Cell Distribution Width 14.7 % (11.5-14.5) H Platelet Count 242 x10^3/uL (140-400) Neutrophils (%) (Auto) 65 % (31-73) Lymphocytes (%) (Auto) 15 % (24-48) L Monocytes (%) (Auto) 14 % (0-9) H Eosinophils (%) (Auto) 5 % (0-3) H Basophils (%) (Auto) 1 % (0-3) Neutrophils # (Auto) 2.9 x10^3uL (1.8-7.7) Lymphocytes # (Auto) 0.7 x10^3/uL (1.0-4.8) L Monocytes # (Auto) 0.6 x10^3/uL (0.0-1.1) Eosinophils # (Auto) 0.2 x10^3/uL (0.0-0.7) Basophils # (Auto) 0.0 x10^3/uL (0.0-0.2) Sodium Level 143 mmol/L (136-145) Potassium Level 4.3 mmol/L (3.5-5.1) Chloride Level 107 mmol/L (98-107) Carbon Dioxide Level 30 mmol/L (21-32) Anion Gap 6 (6-14) Blood Urea Nitrogen 29 mg/dL (8-26) H Creatinine 1.5 mg/dL (0.7-1.3) H Estimated GFR (Cockcroft-Gault) 44.8 BUN/Creatinine Ratio 19 (6-20) Glucose Level 86 mg/dL (70-99) Calcium Level 8.7 mg/dL (8.5-10.1) Total Bilirubin 0.3 mg/dL (0.2-1.0) Aspartate Amino Transferase (AST) 20 U/L (15-37) Alanine Aminotransferase (ALT) 28 U/L (16-63) Alkaline Phosphatase 64 U/L (46-116) Total Protein 6.8 g/dL (6.4-8.2) Albumin 2.9 g/dL (3.4-5.0) L Albumin/Globulin Ratio 0.7 (1.0-1.7) L Current Medications: Meds: Current Medications Acetaminophen (Tylenol) 650 mg PRN Q6HRS PRN PO PAIN / TEMP; Start 01/25/19 at 12:30; Stop 01/25/19 at 13:54; Status DC Multi-Ingredient Ointment (Analgesic [place]) 1 amy PRN QID PRN TP MUSCLE PAIN; Start 01/25/19 at 12:30 Al Hydroxide/Mg Hydroxide (Mylanta Plus Xs) 15 ml PRN AFTMEALHC PRN PO DYSPEPSIA; Start 01/25/19 at 12:30 Magnesium Hydroxide (Milk Of Magnesia) 2,400 mg PRN QHS PRN PO CONSTIPATION Last administered on 02/05/19at 05:07; Start 01/25/19 at 12:30 Acetaminophen (Tylenol) 650 mg PRN Q6HRS PRN PO PAIN / TEMP Last administered on 02/11/19at 17:41; Start 01/25/19 at 13:30 Albuterol Sulfate (Ventolin) 2.5 mg PRN Q6HRS PRN INH SHORTNESS OF BREATH Last administered on 02/10/19 04:39; Start 01/25/19 at 13:30 Guaifenesin (Guaifenesin) 200 mg DAILY PO Last administered on 02/13/19 08:55; Start 01/26/19 at 09:00 Albuterol/ Ipratropium (Duoneb) 3 ml QID NEB Last administered on 02/13/19 16:46; Start 01/25/19 at 17:00 Levothyroxine Sodium (Synthroid) 137 mcg DAILY06 PO Last administered on 02/13/19 05:40; Start 01/26/19 at 06:00 Olanzapine (ZyPREXA ZYDIS) 2.5 mg PRN Q4HRS PRN PO ANXIETY / AGITATION Last administered on 02/12/19 00:18; Start 01/25/19 at 13:30 Rivastigmine (Exelon 13.3mg) 1 patch DAILY TD Last administered on 02/13/19 08:52; Start 01/26/19 at 09:00 Sertraline HCl (Zoloft) 50 mg DAILY PO Last administered on 02/01/19 07:53; Start 01/26/19 at 09:00; Stop 02/01/19 at 16:43; Status DC Tamsulosin HCl (Flomax) 0.4 mg DAILY PO Last administered on 02/13/19 08:55; Start 01/26/19 at 09:00 Non-Formulary Medication (Budesonide (Pulmicort)) 0.5 mg RTBID NEB ; Start 01/25/19 at 20:00; Stop 01/25/19 at 20:00; Status DC Calcium/Vitamin D (Oscal D 500mg/ 200uts) 1 tab DAILY PO Last administered on 02/13/19 08:53; Start 01/26/19 at 09:00 Vitamin D (Vitamin D3) 50,000 unit WEEKLY PO Last administered on 02/11/19 07:56; Start 01/28/19 at 09:00 Divalproex Sodium (Depakote Sprinkles) 250 mg BID PO Last administered on 02/03/19 08:55; Start 01/25/19 at 21:00; Stop 02/03/19 at 16:42; Status DC Ferrous Sulfate (Feosol) 325 mg DAILYWBKFT PO Last administered on 02/13/19 08:54; Start 01/26/19 at 08:00 Glucosamine Sulfate (Glucosamine) 1,000 mg DAILY PO Last administered on 02/13/19 08:55; Start 01/26/19 at 09:00 Haloperidol Lactate (Haldol) 5 mg PRN Q4HRS PRN IM ANXIETY/AGITATION Last administered on 02/03/19 11:37; Start 01/25/19 at 13:45 Lactobacillus Rhamnosus (Culturelle) 1 cap BID PO Last administered on 02/13/19 19:21; Start 01/25/19 at 21:00 Non-Formulary Medication (Mag Hydrox/Al Hydrox/Simeth (Advanced Antacid Liquid)) 15 ml PRN AFTMEALHC PRN PO DYSPEPSIA; Start 01/25/19 at 13:30; Stop 01/25/19 at 13:47; Status DC Non-Formulary Medication (Magnesium Hydroxide (Milk Of Magnesia)) 2,400 mg PRN QHS PRN PO CONSTIPATION; Start 01/25/19 at 13:30; Stop 01/25/19 at 13:47; Status DC Non-Formulary Medication (Methyl Salicylate/Menth/ Camph (Pain-Relief Cream)) 1 amy PRN BID PRN TP foot pain; Start 01/25/19 at 13:30; Stop 01/25/19 at 13:47; Status DC Multivitamins/ Calcium (Thera-M Plus) 1 tab DAILY PO Last administered on 02/13/19 08:55; Start 01/26/19 at 09:00 Nystatin/ Triamcinolone Acetonide (Mycolog Ii) 1 amy BID TP Last administered on 01/27/19 08:16; Start 01/25/19 at 21:00; Stop 01/27/19 at 17:01; Status DC Olanzapine (ZyPREXA ZYDIS) 10 mg QHS PO Last administered on 02/13/19 19:21; Start 01/25/19 at 21:00 Trazodone HCl (Desyrel) 150 mg QHS PO Last administered on 02/13/19 19:21; Start 01/25/19 at 21:00 Budesonide (Pulmicort) 0.5 mg RTBID NEB Last administered on 02/13/19at 05:14; Start 01/25/19 at 20:00 Mirtazapine (Remeron) 7.5 mg QHS PO Last administered on 02/13/19at 19:21; Start 01/26/19 at 21:00 Nystatin/ Triamcinolone Acetonide (Mycolog Ii) 1 amy PRN BID PRN TP AFFECTED AREA; Start 01/27/19 at 21:00 Sertraline HCl (Zoloft) 75 mg DAILY PO Last administered on 02/13/19at 08:55; Start 02/02/19 at 09:00 Divalproex Sodium (Depakote Sprinkles) 375 mg BID PO Last administered on 02/13/19at 19:22; Start 02/03/19 at 21:00 Active Scripts Active Reported Haloperidol 5 Mg Tablet 5 Mg IM PRN Q4HRS PRN Zyprexa Zydis (Olanzapine) 10 Mg Tab.rapdis 10 Mg PO QHS Zyprexa Zydis (Olanzapine) 5 Mg Tab.rapdis 2.5 Mg PO PRN Q4HRS PRN Milk Of Magnesia (Magnesium Hydroxide) 2,400 Mg/10 Ml Oral.susp 2,400 Mg PO PRN QHS PRN Advanced Antacid Liquid (Mag Hydrox/Al Hydrox/Simeth) 355 Ml Oral.susp 15 Ml PO PRN AFTMEALHC PRN Culturelle (Lactobacillus Rhamnosus Gg) 1 Each Capsule 1 Each PO BID Duoneb 0.5-3(2.5) Mg/3 Ml (Albuterol/Ipratropium) 3 Ml Ampul.neb 3 Ml NEB QID Depakote Sprinkle (Divalproex Sodium) 125 Mg Cap.sprink 250 Mg PO BID Vitamin D3 (Cholecalciferol (Vitamin D3)) 5,000 Unit Tablet 50,000 Unit PO WEEKLY Calcium 500 + Vit D 400 Tablet (Calcium Carbonate/Vitamin D3) 1 Each Tablet 1 Each PO DAILY Pulmicort (Budesonide) 0.5 Mg/2 Ml Ampul.neb 0.5 Mg NEB RTBID Tylenol (Acetaminophen) 325 Mg Tablet 650 Mg PO PRN Q6HRS PRN Multivitamins (Multivitamin) 1 Each Tablet 1 Each PO DAILY Nystatin-Triamcinolone Cream (Nystatin/Triamcin) 15 Gm Cream..g. 1 Amy TP BID Guaifenesin 200 Mg Tablet 200 Mg PO DAILY Glucosamine (Glucosamine Sulfate 2KCL) 1,000 Mg Tablet 1,000 Mg PO DAILY Flomax (Tamsulosin Hcl) 0.4 Mg Cap.er.24h 0.4 Mg PO DAILY Zoloft (Sertraline Hcl) 50 Mg Tablet 50 Mg PO DAILY EXELON 13.3mg/24hr (Rivastigmine) 1 Each Patch.td24 1 Patch TD DAILY Pain-Relief Cream (Methyl Salicylate/Menth/Camph) 113.3 Gm Cream..g. 1 Amy TP PRN BID PRN Levothyroxine Sodium 137 Mcg Tablet 137 Mcg PO DAILYAC Ferrous Gluconate 324 Mg Tablet 324 Mg PO DAILY Proair Hfa Inhaler (Albuterol Sulfate) 8.5 Gm Hfa.aer.ad 1 Puff INH PRN Q6HRS PRN Trazodone Hcl 50 Mg Tablet 150 Mg PO QHS I have reviewed the current psychotropics carefully including drug interactions. Risk benefit ratio favors no change other than as noted in my dictated progress note. Diagnosis: Problems: (1) Anxiety disorder (2) Impulse control disorder (3) Dementia, vascular, with depression (4) Dementia, vascular, with delusions (5) Dementia in Alzheimer's disease with depression (6) Dementia in Alzheimer's disease with delusions (7) Dementia with behavioral disturbance MYLES SHORT MD Feb 13, 2019 22:34
[2019-02-14] MEDS ORDERED: SERT50TA PO (03:10)
[2019-02-14] MEDS ORDERED: SERT25TA PO (03:10)
[2019-02-14] MEDS ORDERED: NYST15CR2 TP (03:12)
[2019-02-14] MEDS ORDERED: MIRT7.5T8 PO (03:13)
[2019-02-14] MEDS ORDERED: METH29OI TP (03:15)
[2019-02-14] MEDS ORDERED: DIVA125C2 PO (03:17)
[2019-02-14] MEDS ORDERED: CALC-157 PO (03:21)
[2019-02-14] MEDS ORDERED: ALBU2.5V8 INH (03:23)
[2019-02-14] MEDS: IPRATRPIUM/ALBUTEROL 0.5/2.5MG 3 ML NEBU. NEB SCH (05:16)
[2019-02-14 05:34] VITALS: BP 108/70
[2019-02-14] MEDS: LEVOTHYROXINE 137 MCG TABLET PO SCH (05:50)
[2019-02-14] MEDS: DIVALPROEX 125 MG CAP.SPRINK PO SCH (07:35)
[2019-02-14] MEDS: CALCIUM CARB/VIT D3 500/200 TABLET PO SCH (07:35)
[2019-02-14] MEDS: RIVASTIGMINE 13.3MG PATCH. TD SCH (07:35)
[2019-02-14] MEDS: TAMSULOSIN 0.4 MG CAP.ER.24H. PO SCH (07:35)
[2019-02-14] MEDS: SERTRALINE 50 MG TABLET. PO SCH (07:36)
[2019-02-14] MEDS: FERROUS SULFATE 325 MG TABLET. PO SCH (07:36)
[2019-02-14] MEDS: MULTIVITAMIN with MINERAL TABLET. PO SCH (07:37)
[2019-02-14] MEDS: LACTOBACILLUS RHAMNOSUS GG 1 CAPSULE. PO SCH (07:37)
[2019-02-14] MEDS: GLUCOSAMINE 500 MG CAPSULE PO SCH (07:37)
--- NOTE | 2019-02-14 18:15 | PDOC ---
Exam Note: Tony Note: Please also refer to the separate dictated note~for this date of service dictated separately.~Patient seen individually. Discussed the patient with Nursing staff reviewed the chart.~Reviewed interim history and current functioning. Reviewed vital signs,~Labs/ Radiology~and current medications noted below. Continue current treatment with the changes noted in the dictated addendum note Assessment: Vital Signs: Vital Signs Date Time Temp Pulse Resp B/P (MAP) Pulse Ox O2 Delivery O2 Flow Rate FiO2 02/14/19 05:50 Room Air 02/14/19 05:34 98.0 98 16 108/70 (83) 98 02/11/19 05:02 2.0 I&O Intake and Output 02/14/19 07:00 Intake Total 960 ml Balance 960 ml Intake Oral 960 ml # Bowel Movements 1 Current Medications: Meds: Current Medications Acetaminophen (Tylenol) 650 mg PRN Q6HRS PRN PO PAIN / TEMP; Start 01/25/19 at 12:30; Stop 01/25/19 at 13:54; Status DC Multi-Ingredient Ointment (Analgesic [place]) 1 amy PRN QID PRN TP MUSCLE PAIN; Start 01/25/19 at 12:30; Stop 02/14/19 at 11:05; Status DC Al Hydroxide/Mg Hydroxide (Mylanta Plus Xs) 15 ml PRN AFTMEALHC PRN PO DYSPEPSIA; Start 01/25/19 at 12:30; Stop 02/14/19 at 11:05; Status DC Magnesium Hydroxide (Milk Of Magnesia) 2,400 mg PRN QHS PRN PO CONSTIPATION Last administered on 02/05/19at 05:07; Start 01/25/19 at 12:30; Stop 02/14/19 at 11:05; Status DC Acetaminophen (Tylenol) 650 mg PRN Q6HRS PRN PO PAIN / TEMP Last administered on 02/11/19at 17:41; Start 01/25/19 at 13:30; Stop 02/14/19 at 11:05; Status DC Albuterol Sulfate (Ventolin) 2.5 mg PRN Q6HRS PRN INH SHORTNESS OF BREATH Last administered on 02/10/19at 04:39; Start 01/25/19 at 13:30; Stop 02/14/19 at 11:05; Status DC Guaifenesin (Guaifenesin) 200 mg DAILY PO Last administered on 02/14/19at 07:37; Start 01/26/19 at 09:00; Stop 02/14/19 at 11:05; Status DC Albuterol/ Ipratropium (Duoneb) 3 ml QID NEB Last administered on 02/14/19at 05:16; Start 01/25/19 at 17:00; Stop 02/14/19 at 11:05; Status DC Levothyroxine Sodium (Synthroid) 137 mcg DAILY06 PO Last administered on 02/14/19at 05:50; Start 01/26/19 at 06:00; Stop 02/14/19 at 11:05; Status DC Olanzapine (ZyPREXA ZYDIS) 2.5 mg PRN Q4HRS PRN PO ANXIETY / AGITATION Last administered on 02/12/19at 00:18; Start 01/25/19 at 13:30; Stop 02/14/19 at 11:05; Status DC Rivastigmine (Exelon 13.3mg) 1 patch DAILY TD Last administered on 02/14/19at 07:35; Start 01/26/19 at 09:00; Stop 02/14/19 at 11:05; Status DC Sertraline HCl (Zoloft) 50 mg DAILY PO Last administered on 02/01/19at 07:53; Start 01/26/19 at 09:00; Stop 02/01/19 at 16:43; Status DC Tamsulosin HCl (Flomax) 0.4 mg DAILY PO Last administered on 02/14/19at 07:35; Start 01/26/19 at 09:00; Stop 02/14/19 at 11:05; Status DC Non-Formulary Medication (Budesonide (Pulmicort)) 0.5 mg RTBID NEB ; Start 01/25/19 at 20:00; Stop 01/25/19 at 20:00; Status DC Calcium/Vitamin D (Oscal D 500mg/ 200uts) 1 tab DAILY PO Last administered on 02/14/19at 07:35; Start 01/26/19 at 09:00; Stop 02/14/19 at 11:05; Status DC Vitamin D (Vitamin D3) 50,000 unit WEEKLY PO Last administered on 02/11/19at 07:56; Start 01/28/19 at 09:00; Stop 02/14/19 at 11:05; Status DC Divalproex Sodium (Depakote Sprinkles) 250 mg BID PO Last administered on 02/03/19at 08:55; Start 01/25/19 at 21:00; Stop 02/03/19 at 16:42; Status DC Ferrous Sulfate (Feosol) 325 mg DAILYWBKFT PO Last administered on 02/14/19at 07:36; Start 01/26/19 at 08:00; Stop 02/14/19 at 11:05; Status DC Glucosamine Sulfate (Glucosamine) 1,000 mg DAILY PO Last administered on 02/14/19at 07:37; Start 01/26/19 at 09:00; Stop 02/14/19 at 11:06; Status DC Haloperidol Lactate (Haldol) 5 mg PRN Q4HRS PRN IM ANXIETY/AGITATION Last administered on 02/03/19at 11:37; Start 01/25/19 at 13:45; Stop 02/14/19 at 11:06; Status DC Lactobacillus Rhamnosus (Culturelle) 1 cap BID PO Last administered on 02/14/19at 07:37; Start 01/25/19 at 21:00; Stop 02/14/19 at 11:06; Status DC Non-Formulary Medication (Mag Hydrox/Al Hydrox/Simeth (Advanced Antacid Liquid)) 15 ml PRN AFTMEALHC PRN PO DYSPEPSIA; Start 01/25/19 at 13:30; Stop 01/25/19 at 13:47; Status DC Non-Formulary Medication (Magnesium Hydroxide (Milk Of Magnesia)) 2,400 mg PRN QHS PRN PO CONSTIPATION; Start 01/25/19 at 13:30; Stop 01/25/19 at 13:47; Status DC Non-Formulary Medication (Methyl Salicylate/Menth/ Camph (Pain-Relief Cream)) 1 amy PRN BID PRN TP foot pain; Start 01/25/19 at 13:30; Stop 01/25/19 at 13:47; Status DC Multivitamins/ Calcium (Thera-M Plus) 1 tab DAILY PO Last administered on 02/14/19at 07:37; Start 01/26/19 at 09:00; Stop 02/14/19 at 11:06; Status DC Nystatin/ Triamcinolone Acetonide (Mycolog Ii) 1 amy BID TP Last administered on 01/27/19at 08:16; Start 01/25/19 at 21:00; Stop 01/27/19 at 17:01; Status DC Olanzapine (ZyPREXA ZYDIS) 10 mg QHS PO Last administered on 02/13/19at 19:21; Start 01/25/19 at 21:00; Stop 02/14/19 at 11:06; Status DC Trazodone HCl (Desyrel) 150 mg QHS PO Last administered on 02/13/19at 19:21; Start 01/25/19 at 21:00; Stop 02/14/19 at 11:06; Status DC Budesonide (Pulmicort) 0.5 mg RTBID NEB Last administered on 02/13/19at 20:30; Start 01/25/19 at 20:00; Stop 02/14/19 at 11:06; Status DC Mirtazapine (Remeron) 7.5 mg QHS PO Last administered on 02/13/19at 19:21; Start 01/26/19 at 21:00; Stop 02/14/19 at 11:06; Status DC Nystatin/ Triamcinolone Acetonide (Mycolog Ii) 1 amy PRN BID PRN TP AFFECTED AREA; Start 01/27/19 at 21:00; Stop 02/14/19 at 11:06; Status DC Sertraline HCl (Zoloft) 75 mg DAILY PO Last administered on 02/14/19at 07:36; Start 02/02/19 at 09:00; Stop 02/14/19 at 11:06; Status DC Divalproex Sodium (Depakote Sprinkles) 375 mg BID PO Last administered on 02/14/19at 07:35; Start 02/03/19 at 21:00; Stop 02/14/19 at 11:06; Status DC Active Scripts Active Reported Ventolin Hfa Inhaler (Albuterol Sulfate) 18 Gm Hfa.aer.ad 2.5 Mg INH PRN Q6HRS PRN Calcium 500 + Vit D 200 Tablet (Calcium Carbonate/Vitamin D3) 1 Each Tablet 1 Tab PO DAILY Depakote Sprinkle (Divalproex Sodium) 125 Mg Cap.sprink 375 Mg PO BID Analgesic [place] (Methyl Salicylate/Menthol) 28 Gm Oint...g. 1 Amy TP PRN QID PRN Mirtazapine 7.5 Mg Tablet 7.5 Mg PO QHS Nystatin-Triamcinolone Cream (Nystatin/Triamcin) 15 Gm Cream..g. 1 Amy TP PRN BID Zoloft (Sertraline Hcl) 50 Mg Tablet 50 Mg PO DAILY Zoloft (Sertraline Hcl) 25 Mg Tablet 25 Mg PO DAILY Haloperidol 5 Mg Tablet 5 Mg IM PRN Q4HRS PRN Zyprexa Zydis (Olanzapine) 10 Mg Tab.rapdis 10 Mg PO QHS Zyprexa Zydis (Olanzapine) 5 Mg Tab.rapdis 2.5 Mg PO PRN Q4HRS PRN Milk Of Magnesia (Magnesium Hydroxide) 2,400 Mg/10 Ml Oral.susp 2,400 Mg PO PRN QHS PRN Advanced Antacid Liquid (Mag Hydrox/Al Hydrox/Simeth) 355 Ml Oral.susp 15 Ml PO PRN AFTMEALHC PRN Culturelle (Lactobacillus Rhamnosus Gg) 1 Each Capsule 1 Each PO BID Duoneb 0.5-3(2.5) Mg/3 Ml (Albuterol/Ipratropium) 3 Ml Ampul.neb 3 Ml NEB QID Vitamin D3 (Cholecalciferol (Vitamin D3)) 5,000 Unit Tablet 50,000 Unit PO WEEKLY Pulmicort (Budesonide) 0.5 Mg/2 Ml Ampul.neb 0.5 Mg NEB RTBID Tylenol (Acetaminophen) 325 Mg Tablet 650 Mg PO PRN Q6HRS PRN Multivitamins (Multivitamin) 1 Each Tablet 1 Each PO DAILY Guaifenesin 200 Mg Tablet 200 Mg PO DAILY Glucosamine (Glucosamine Sulfate 2KCL) 1,000 Mg Tablet 1,000 Mg PO DAILY Flomax (Tamsulosin Hcl) 0.4 Mg Cap.er.24h 0.4 Mg PO DAILY EXELON 13.3mg/24hr (Rivastigmine) 1 Each Patch.td24 1 Patch TD DAILY Levothyroxine Sodium 137 Mcg Tablet 137 Mcg PO DAILYAC Ferrous Gluconate 324 Mg Tablet 324 Mg PO DAILY Trazodone Hcl 50 Mg Tablet 150 Mg PO QHS I have reviewed the current psychotropics carefully including drug interactions. Risk benefit ratio favors no change other than as noted in my dictated progress note. Diagnosis: Problems: (1) Dementia with behavioral disturbance (2) Obstructive sleep apnea (3) Dementia in Alzheimer's disease with delusions (4) Dementia in Alzheimer's disease with depression (5) Dementia, vascular, with delusions (6) Dementia, vascular, with depression (7) Impulse control disorder (8) Anxiety disorder MYLES SHORT MD Feb 14, 2019 18:15
--- NOTE | 2019-02-14 23:55 | PN ---
DATE: 02/13/2019 PSYCHIATRIC PROGRESS NOTE This is a late entry 02/13/2019, covers elements not covered in my initial note. SUBJECTIVE: I met with the patient in the evening. The patient slept 7 hours previous night. He remains confused, not agitated, aggressive, less labile, less exit seeking, still wandering. REVIEW OF SYSTEMS: No CV, , pulmonary, eye, ENT system symptoms on review. Reliability poor. MENTAL STATUS EXAM: Oriented to himself. Insight, judgment, recent and remote memory, attention, concentration, fund of knowledge poor, consistent with his diagnosis mentioned in my initial note. PLAN: No change from initial note. MAN Leyla SHORT MD DR: RICHARD/ruiz JOB#: [id number] / [id number]
--- NOTE | 2019-02-15 10:59 | DS ---
DATE OF DISCHARGE: 02/14/2019 DISCHARGE SUMMARY/PSYCHIATRIC PROGRESS NOTE This late entry 02/14/2019 covers elements not covered in my initial note 02/14/2019. REASON FOR ADMISSION: Please refer to the admission history for details. Briefly, the patient is an 83-year-old male referred to us from [facility] floor after he was medically stabilized post being referred to the Emergency Room from home on account of agitation, confusion, being unmanageable where he lives at home with his . He was extremely confused. On 1 , he was aggressive with staff, delusional, paranoid, having marked insomnia, threatening to kill staff. He had raised his fist to staff as well. SIGNIFICANT FINDINGS AND CLINICAL COURSE: Following admission, the patient was seen daily individually by myself from a psychiatric standpoint, medical followup with Dr. Ceja. The patient remained confused, anxious, restless, and paranoid. Adjustments were made in his psychotropics. He seemed to respond to a combination of Depakote Sprinkles 375 mg b.i.d. with a level slightly subtherapeutic at 48, but clinically adequate. Zyprexa was used p.r.n., Exelon patch 13.3 mg a day, Zoloft gradually increased to 75 mg a day, trazodone 150 mg at bedtime for insomnia, Remeron 7.5 mg p.o. at bedtime for insomnia. Gradually, the patient's mood appeared to improve. He remained confused, but much less psychotic, paranoid, and less attempts to elope. DISPOSITION: Plans were coordinated by the social work program coordinator with the family for appropriate placement. REVIEW OF SYSTEMS: Prior to discharge, 02/14/2019, no CV, , pulmonary, eye, ENT system symptoms on review. MENTAL STATUS EXAM: Oriented to himself. Insight, judgment, recent and remote memory, attention, concentration, fund of knowledge poor, consistent with his diagnosis. CONDITION AT DISCHARGE: Improved. FINAL DIAGNOSES: Major neurocognitive disorder, Alzheimer, vascular with delusion, depression, behavioral disturbance; anxiety disorder, unspecified; impulse control disorder, unspecified. Rest unchanged from admission. DISCHARGE MEDICATIONS: Please refer to the MRAD. DISCHARGE INSTRUCTIONS: [facility]. Time for discharge day management greater than 30 minutes. MAN Leyla SHORT MD DR: Javan JOB#: [id number] / [id number]
== END 2019-02-14 10:45 | DRG 56 ==
LOC: GEROPSY 12:12
PROVIDERS: ADMIT Psychiatry & Neurology Psychiatry; ATTEND Psychiatry & Neurology Psychiatry
DX: G30.9 Alzheimer's disease, unspecified (principal); J96.21 Acute and chronic respiratory failure with hypoxia; F02.81 Dementia in other diseases classified elsewhere, unspecified severity, with behavioral disturbance; F01.51 Vascular dementia, unspecified severity, with behavioral disturbance; N17.9 Acute kidney failure, unspecified; M15.9 Polyosteoarthritis, unspecified; J43.9 Emphysema, unspecified; I25.10 Atherosclerotic heart disease of native coronary artery without angina pectoris; I12.9 Hypertensive chronic kidney disease with stage 1 through stage 4 chronic kidney disease, or unspecified chronic kidney disease; G47.33 Obstructive sleep apnea (adult) (pediatric); Z66 Do not resuscitate; F41.9 Anxiety disorder, unspecified; G47.00 Insomnia, unspecified; F63.9 Impulse disorder, unspecified; N18.9 Chronic kidney disease, unspecified; K21.9 Gastro-esophageal reflux disease without esophagitis; F32.9 Major depressive disorder, single episode, unspecified; N40.0 Benign prostatic hyperplasia without lower urinary tract symptoms; Z88.8 Allergy status to other drugs, medicaments and biological substances; Z79.899 Other long term (current) drug therapy; Z87.440 Personal history of urinary (tract) infections
CPT/HCPCS: 36415; 80053; 80164; 81001; 82140; 85025; 87086; 94640; J1630; J7613; J7620; J7626

== ENCOUNTER 2019-04-30 06:31 | Emergency (ER) | payer MEDICARE ==
[~2019-04-30] VITALS: Ht 170.2 cm; Wt 82.0 kg
[~2019-04-30 06:31] MED LIST changes: +CALC-157 PO; +METH29OI TP; +MIRT7.5T8 PO; +SERT25TA PO
[2019-04-30 06:38] VITALS: BP 134/79
--- NOTE | 2019-04-30 07:01 | PHYS DOC ---
Adult General Chief Complaint Chief Complaint: LACERATION/AVULSION HPI HPI Patient is an 83-year-old male who presents via EMS with laceration to his scalp. Patient is resident of nursing facility and fall was unwitnessed. Nursing staff believes that patient had been in his wheelchair and had fallen over to the side. They do not believe that he lost consciousness. Patient denies being in any pain. Additional history is limited due to history of dementia.[] Review of Systems Review of Systems Constitutional: Denies fever or chills [] Respiratory: Positive cough[] Cardiovascular: No additional information not addressed in HPI [] Integument: Positive scalp laceration[] Neurologic: Positive head injury without focal weakness or sensory changes [] Unable to fully assess review of systems due to dementia. Allergies Allergies Allergies Coded Allergies Type Severity Reaction Last Updated Verified galantamine Allergy Intermediate 01/23/19 Yes Physical Exam Physical Exam Constitutional: Well developed, well nourished, no acute distress, non-toxic appearance. [] HENT: Normocephalic, with a 4 cm laceration to right parieto-occipital region of scalp. Laceration is linear with fairly sharp margins, extending into subcutaneous tissue, bilateral external ears normal, oropharynx moist, no oral exudates, nose normal. [] Eyes: PERRLA, EOMI, conjunctiva normal, no discharge. [] Neck: Normal range of motion, no tenderness, supple, no stridor. [] Cardiovascular: Mildly tachycardic rate with irregular rhythm[] Lungs & Thorax: Fine rhonchi are noted bilaterally to auscultation [] Abdomen: Bowel sounds normal, soft, no tenderness. [] Skin: Warm, dry, no erythema, no rash. [] Extremities: No tenderness, no cyanosis, no clubbing, ROM intact, with lower extremity pitting edema. [] Neurologic: Awake and alert, no focal deficits noted. [] EKG EKG [] Radiology/Procedures Radiology/Procedures [] Impressions: PROCEDURE: CT LUMBAR SPINE WO CONTRAST CT PELVIS WO CONTRAST, CT LUMBAR SPINE WO CONTRAST History: Trauma. Back pain. Pelvic pain. Technique: Noncontrast CT was performed of the lumbar spine and pelvis. Multiplanar reconstructions were performed. Exposure: One or more of the following individualized dose reduction techniques were utilized for this examination: 1. Automated exposure control 2. Adjustment of the mA and/or kV according to patient size 3. Use of iterative reconstruction technique. Comparison: None Findings: Mild rightward curvature of the lumbar spine. Multilevel degenerative endplate changes with sclerosis most prominent at L2-L3. Chronic superior endplate Schmorl's node T12 and L2. L2 mild compression deformity, chronic appearing. TISSUE with changes of the thoracic spine. Advanced multilevel degenerative disc disease with multilevel vacuum disc phenomenon. Mild multilevel canal narrowing most prominent L3-L4 and L4-L5. Multilevel severe neural foraminal narrowing most prominent left L2-L3, bilateral L3-L4, bilateral L4-L5 and L5-S1. Chronic left posterior 11th rib fracture. Chronic right transverse process fracture. Right renal cysts. Atheromatous calcifications within the nonaneurysmal abdominal aorta. Pelvis: Bilateral hip and pubic symphysis chondrocalcinosis. Normal alignment of the hips. No fracture. Bilateral gluteal subcutaneous edema. More prominent right lateral hip subcutaneous edema with an organized fluid collection measures 4.0 x 4.5 cm and tracks superiorly along the fashion. Right gluteal muscle edema. Intrapelvic contents are unremarkable. Impression: 1. Right lateral hip subcutaneous fluid collection along the fashion, may represent hematoma. Recommend follow-up to exclude Tolbert-Lavalllee/degloving injury. 2. Right gluteal intramuscular edema and bilateral gluteal subcutaneous edema. 3. Chronic appearing L2 compression deformity with Schmorl's node. 4. Advanced multilevel lumbar spondylosis with canal and neural foraminal narrowing. 5. Bilateral hip and pubic symphysis chondrocalcinosis. Electronically signed by: Robert Wilson DO (04/30/2019 9:53 AM) [facility] DICTATED AND SIGNED BY: ROBERT WILSON DO DATE: 04/30/19 0953 Course & Med Decision Making Course & Med Decision Making Pertinent Labs and Imaging studies reviewed. (See chart for details) Laceration Repair by me: Anesthesia: 2% lidocaine with epinephrine locally Location: Scalp Tendon/Joint/Nerves: No injury Foreign body: None detected after copious irrigation and exploration Technique: A total of 7 Simple Interrupted Sutures were placed utilizing 4-0 proline suture material. Complexity: No subcutaneous sutures/mucosal repair/edge excision Post Closure Length: 4 cm Patient's bleeding was easily controlled in the department and there is no indication of anemia. No evidence of compartment syndrome, neurologic injury, vascular injury, open joint, tendon laceration, or foreign body. Patient is appropriate for outpatient follow up. 48 hour wound check. Scar minimization instructions given. Dragon Disclaimer Dragon Disclaimer This electronic medical record was generated, in whole or in part, using a voice recognition dictation system. Departure Departure: Impression: Primary Impression: Scalp laceration Additional Impression: Contusion of lower back Disposition: 01 HOME, SELF-CARE Condition: STABLE Referrals: PCP,NO (PCP) Patient Instructions: Contusion, Laceration Care, Adult Additional Instructions: Follow-up for suture removal in 7-10 days. Problem Qualifiers Primary Impression: Scalp laceration Encounter type: initial encounter Qualified Codes: S01.01XA - Laceration without foreign body of scalp, initial encounter Additional Impression: Contusion of lower back Encounter type: initial encounter Qualified Codes: S30.0XXA - Contusion of lower back and pelvis, initial encounter LUKAS CASTELLON Jr., DO Apr 30, 2019 07:01
--- NOTE | 2019-04-30 07:48 | RAD ---
CT HEAD WO CONTRAST History fall. Head injury. Headache. Comparison: None. Technique: Noncontrast CT imaging was performed of the head. Exposure: One or more of the following individualized dose reduction techniques were utilized for this examination: 1. Automated exposure control 2. Adjustment of the mA and/or kV according to patient size 3. Use of iterative reconstruction technique. Findings: Mild right posterior scalp soft tissue swelling. No intracranial hemorrhage. No mass effect. No hydrocephalus. Moderate brain parenchymal volume loss. Severe foci of decreased attenuation within the hemispheric white matter, most often due to chronic microvascular ischemia. Old right occipital infarct. Prominence of the lateral ventricles, likely due to central brain parenchymal volume loss. Imaged orbits are unremarkable. Partial pacification of the right frontal sinus. Minimal scattered paranasal sinus mucosal thickening. Small left mastoid effusion. No acute calvarial fracture. Impression: 1. No acute intracranial abnormality. 2. Mild right posterior scalp soft tissue swelling. 3. Extensive sequelae of chronic microvascular ischemia. 4. Moderate brain parenchymal volume loss. 5. Right frontal sinus disease. Electronically signed by: Wilder Calle DO (04/30/2019 7:45 AM) [facility]
[2019-04-30 07:53] LABS: BASO % 0 % (0-3); EOS # 0.2 x10^3/uL (0.0-0.7); EOS % 4 % (0-3); HEMATOCRIT 37.4 % (39.0-53.0); HEMOGLOBIN 12.7 g/dL (13.0-17.5); LYMPH # 0.6 x10^3/uL (1.0-4.8); LYMPH % 13 % (24-48); MEAN CORPUSCULAR HEMOGLOBIN 32 pg (25-35); MEAN CORPUSCULAR HGB CONC 34 g/dL (31-37); MEAN CORPUSCULAR VOLUME 95 fL (79-100); MONO # 0.7 x10^3/uL (0.0-1.1); MONO % 16 % (0-9); NEUT % 66 % (31-73); PLATELET COUNT 226 x10^3/uL (140-400); RED BLOOD COUNT 3.93 x10^6/uL (4.30-5.70); WHITE BLOOD COUNT 4.6 x10^3/uL (4.0-11.0)
[2019-04-30] MEDS ORDERED: FUROSEMIDE 40 MG/4 ML VIAL IVP ONE (08:00)
--- NOTE | 2019-04-30 08:03 | RAD ---
EXAM: CHEST 1 VIEW History: Cough COMPARISON: 01/24/2019 TECHNIQUE: Single portable radiograph of the chest FINDINGS: Low lung volumes and technique accentuates heart size and pulmonary vascularity. Mild elevation of the right hemidiaphragm. Linear airspace opacity likely atelectasis or infiltrate. IMPRESSION: Mild linear airspace opacity likely atelectasis or infiltrate. Follow-up to resolution. Electronically signed by: Augustin Limon MD (04/30/2019 8:00 AM) [facility]
[2019-04-30 08:20] LABS: ALBUMIN 2.7 g/dL (3.4-5.0); ALBUMIN/GLOBULIN RATIO 0.8 (1.0-1.7); CALCIUM 8.1 mg/dL (8.5-10.1); CREATININE 1.5 mg/dL (0.7-1.3); GFR 44.8; TOTAL BILIRUBIN 0.5 mg/dL (0.2-1.0); TOTAL PROTEIN 6.2 g/dL (6.4-8.2)
--- NOTE | 2019-04-30 08:25 | EKG ---
[address] [address] Test Date: 2019-04-30 Test Time: 07:45:10 Pat Name: JAZZY SOLIS Department: Room: Gender: M [employer]: : 1935 Requested By: LUKAS CASTELLON Order Number: [id number] Reading MD: Murtaza Vargas MD Measurements Intervals [place] Rate: 105 P: 37 HI: 160 QRS: -79 QRSD: 86 T: 28 QT: 356 QTc: 475 Interpretive Statements SINUS TACHYCARDIA LOW VOLTAGE NON-SPECIFIC ST/T CHANGES Electronically Signed On 04-30-2019 10:27:22 CDT by Murtaza Vargas MD
[2019-04-30 09:02] LABS: BILIRUBIN,URINE NEG (NEG); CLARITY,URINE CLEAR; COLOR,URINE YELLOW; GLUCOSE,URINE NEG (NEG); NITRITE,URINE NEG (NEG); UROBILINOGEN,URINE 0.2 mg/dL (0.2 mg/dL)
[2019-04-30 09:03] LABS: BACTERIA,URINE 0 /HPF (0-FEW); HYALINE CASTS, URINE OCC /HPF; RBC,URINE OCC /HPF (0-2); SQUAMOUS EPITHELIAL CELL,UR FEW /LPF; WBC,URINE RARE /HPF (0-4)
--- NOTE | 2019-04-30 09:55 | RAD ---
CT PELVIS WO CONTRAST, CT LUMBAR SPINE WO CONTRAST History: Trauma. Back pain. Pelvic pain. Technique: Noncontrast CT was performed of the lumbar spine and pelvis. Multiplanar reconstructions were performed. Exposure: One or more of the following individualized dose reduction techniques were utilized for this examination: 1. Automated exposure control 2. Adjustment of the mA and/or kV according to patient size 3. Use of iterative reconstruction technique. Comparison: None Findings: Mild rightward curvature of the lumbar spine. Multilevel degenerative endplate changes with sclerosis most prominent at L2-L3. Chronic superior endplate Schmorl's node T12 and L2. L2 mild compression deformity, chronic appearing. TISSUE with changes of the thoracic spine. Advanced multilevel degenerative disc disease with multilevel vacuum disc phenomenon. Mild multilevel canal narrowing most prominent L3-L4 and L4-L5. Multilevel severe neural foraminal narrowing most prominent left L2-L3, bilateral L3-L4, bilateral L4-L5 and L5-S1. Chronic left posterior 11th rib fracture. Chronic right transverse process fracture. Right renal cysts. Atheromatous calcifications within the nonaneurysmal abdominal aorta. Pelvis: Bilateral hip and pubic symphysis chondrocalcinosis. Normal alignment of the hips. No fracture. Bilateral gluteal subcutaneous edema. More prominent right lateral hip subcutaneous edema with an organized fluid collection measures 4.0 x 4.5 cm and tracks superiorly along the fashion. Right gluteal muscle edema. Intrapelvic contents are unremarkable. Impression: 1. Right lateral hip subcutaneous fluid collection along the fashion, may represent hematoma. Recommend follow-up to exclude Tolbert-Lavalllee/degloving injury. 2. Right gluteal intramuscular edema and bilateral gluteal subcutaneous edema. 3. Chronic appearing L2 compression deformity with Schmorl's node. 4. Advanced multilevel lumbar spondylosis with canal and neural foraminal narrowing. 5. Bilateral hip and pubic symphysis chondrocalcinosis. Electronically signed by: Wilder Calle DO (04/30/2019 9:53 AM) [facility]
== END 2019-04-30 10:14 | disposition home or self-care (01) ==
LOC: ER 06:31
DX: S01.01XA Laceration without foreign body of scalp, initial encounter (principal); S30.0XXA Contusion of lower back and pelvis, initial encounter; Z88.8 Allergy status to other drugs, medicaments and biological substances; W18.39XA Other fall on same level, initial encounter; Y93.89 Activity, other specified; Y92.128 Other place in nursing home as the place of occurrence of the external cause; Y99.8 Other external cause status
CPT/HCPCS: 12002; 36415; 70450; 71045; 72131; 72192; 80053; 81001; 82550; 83880; 84484; 85025; 87040; 93005; 96374; 99285; J1940